=== PATIENT | female | born 2000 | race Caucasian/White ===

== ENCOUNTER 2020-02-13 22:00 | Emergency (ER) | payer OTHER, SELFPAY ==
--- NOTE | 2020-02-13 21:52 | ECG_ITS ---
APPROVED REPORT Exam: Resting ECG HR:122 bpm ECG Measurements Heart Rate 122 AXES UT 102 P 28 QRSd 84 QRS 59 QT 330 T -8 QTc 470 <Conclusion> Sinus tachycardia ,UT 120ms RSR' or QR pattern in V1 suggests right ventricular conduction delay Abnormal QRS-T angle, consider primary T wave abnormality Abnormal ECG Electronically signed by : Zbigniew Finn, 02/15/2020 17:57:29
[2020-02-13 22:01] VITALS: BP 114/66; PULSE 115; RESP 16; TEMP 37.5; O2SAT 98; BMI 25.4
--- NOTE | 2020-02-13 22:10 | XR_ITS ---
PROCEDURE: XR CHEST 2V CLINICAL HISTORY: cough/ chest pain COMPARISON: No exams were available for comparison FINDINGS: The cardiomediastinal silhouette and pulmonary vascularity are within normal limits. The lungs are clear without infiltrates, suspicious nodules, or pleural effusions. No acute bony abnormalities. IMPRESSION: No acute findings. Dictated by: Neil Moreno MD 02/14/2020 08:17 Electronically signed by Neil Moreno MD in [place] 02/14/2020 08:17
[2020-02-13 22:19] LABS: Basophils # 0.1 K/mm3 (0-0.2); Basophils % 0.3 % (0.1-2.0); Eosinophils # 0.1 K/mm3 (0.0-0.4); Eosinophils % 0.8 % (0.1-12.0); Hematocrit 40.5 % (37.0-47.0); Hemoglobin 13.3 g/dL (12.2-16.2); Lymphocytes # 2.1 K/mm3 (0.7-4.5); Lymphocytes % 12.4 % (10-50); Mean Corpuscular HGB Conc 32.9 g/dL (31.8-35.4); Mean Corpuscular Hemoglobin 29.7 pg (27.0-31.2); Mean Corpuscular Volume 90.1 fl (81-99); Mean Platelet Volume 8.6 fl (7.4-10.4); Monocytes # 1.1 K/mm3 (0.1-1.0); Monocytes % 6.8 % (1.7-9.3); Neutrophils # 13.3 K/mm3 (1.8-7.8); Neutrophils % 79.6 % (37.0-80.0); Platelet Count 265 K/mm3 (142-424); Red Cell Distribution Width 13.5 % (11.5-17.5); White Blood Count 16.7 K/mm3 (4.8-10.8)
[2020-02-13 22:19] LABS: Microscopic, Urine URINE MICROSCOPIC (MICROSCOPIC)
[2020-02-13 22:23] LABS: Chloride 105 mmol/L (98-107); Sodium 137 mmol/L (136-145)
[2020-02-13 22:25] LABS: MANUAL DIFFERENTIAL MANUAL DIFFERENTIAL (MANUAL DIFF)
[2020-02-13 22:26] LABS: Alanine Aminotransferase 20 U/L (12-78); Albumin Level 4.2 g/dl (3.5-5.0); Albumin/Globulin Ratio 1.3 (1.1-1.8); Alkaline Phosphatase 89 U/L (38-126); Aspartate Amino Transferase 24 U/L (14-36); Bilirubin,Total 0.3 mg/dl (0.2-1.3); Blood Urea Nitrogen 15 mg/dl (7-17); Carbon Dioxide 24 mmol/L (22.0-30.0); Creatinine Clearance Estimated 139 mL/min (50-200); Estimated Glomerular Filt Rate 106 ml/min (>60); GFR (African American) 128 ML/MIN (>60); Globulin 3.3 g/dL (1.3-3.2); Total Protein,Serum 7.5 g/dl (6.3-8.2)
[2020-02-13 22:27] LABS: Calcium 9.5 mg/dl (8.4-10.2); Glucose 99 mg/dl (74-100)
[2020-02-13 22:30] VITALS: BP 119/64; PULSE 104; RESP 16; O2SAT 99
[2020-02-13 22:30] LABS: Urine Pregnancy, HCG Qual. Negative (Negative)
[2020-02-13 22:37] LABS: Appearance,Urine CLEAR (Clear); Bilirubin,Urine Negative (Negative); Blood, Urine 2+ (Negative); Color,Urine YELLOW (Yellow); Glucose,Urine (UA) Negative (Negative); Ketones,Urine Negative (Negative); Leukocyte Esterase,Urine Negative (Negative); Nitrate,Urine Negative (Negative); Protein,Urine Negative (Negative); Specific Gravity, Urine 1.015 (1.005-1.030); Urobilinogen,Urine 0.2 EU/dl (0.2)
[2020-02-13 22:40] LABS: Squamous Epithelial Cell,Urine Occasional #/hpf (0-5)
[2020-02-13 22:41] LABS: Troponin I < 0.01 ng/ml (0.00-0.034)
[2020-02-13 22:41] LABS: Bacteria,Urine Trace /lpf
[2020-02-13 23:01] VITALS: BP 121/78; PULSE 108; RESP 18; O2SAT 98
[2020-02-13 23:02] LABS: Lymphocytes % 19 % (10-50); Neutrophils % 81 % (42-76); Platelet Estimate Normal; Stomatocytes 1+; Total Cells Counted 100
--- NOTE | 2020-02-14 | HMH.EDCP ---
ED Disposition Clinical Impression: Atypical chest pain, Pleurisy Acute bronchitis Qualifiers: Bronchitis organism: unspecified organism Qualified Code(s): J20.9 - Acute bronchitis, unspecified Disposition: Home, Self-Care Condition on Discharge: Good Instructions: DI for Pleurisy Additional Instructions: fluids and use meds and see pcp for follo wup Prescriptions: levoFLOXacin [Levaquin 500mg tab] 500 mg PO DAILY #7 tab Transmission Status: Pending to [facility] predniSONE [Prednisone 20mg Tab] 20 mg PO BID #10 tab Transmission Status: Pending to [facility] Referrals: Provider,Referral, [Primary Care Provider] - - Critical Care Critical Care Time: No Attestation: On 02/13/20, the high probability of a clinically significant, sudden or life threatening deterioration of the following system(s) required my full and direct attention, intervention and personal management. The time I documented below is in addition to time spent performing reported procedures but includes the following listed in this critical care notation. Medical Decision Making - Medical Records Medical records reviewed: Yes: I reviewed the patient's medical records. - Tao Inquiry Pt receiving controlled substance: No Vital Signs: 02/13/20 22:01 02/13/20 22:30 02/13/20 23:01 Temperature 99.5 F Temperature Source Oral Pulse Rate [Left Radial] 115 H 104 H 108 H Respiratory Rate 16 16 18 Blood Pressure [Right Arm] 114/66 119/64 121/78 Blood Pressure Mean [Right Arm] 82 82 92 Blood Pressure Source [Right Arm] Automatic Cuff Automatic Cuff Automatic Cuff Blood Pressure Position [Right Arm] Supine Supine Supine 02 Sat by Pulse Oximetry 98 99 98 Oxygen Delivery Method Room Air Room Air Room Air - Lab Data Lab results reviewed: Yes: I reviewed the patient's lab results. Lab Results 02/13/20 22:00: Troponin I < 0.01 02/13/20 22:00: WBC 16.7 H, RBC 4.50, Hgb 13.3, Hct 40.5, MCV 90.1, MCH 29.7, MCHC 32.9, RDW 13.5, Plt Count 265, MPV 8.6, Neut % (Auto) 79.6, Lymph % (Auto) 12.4, [place] % (Auto) 6.8, Eos % (Auto) 0.8, Baso % (Auto) 0.3, Neut # (Auto) 13.3 H, Lymph # (Auto) 2.1, [place] # (Auto) 1.1 H, Eos # (Auto) 0.1, Baso # (Auto) 0.1, Total Counted 100, Neutrophils % (Manual) 81 H, Lymphocytes % (Manual) 19, Platelet Estimate Normal, Stomatocytes 1+ 02/13/20 22:00: Sodium 137, Potassium 4.0, Chloride 105, Carbon Dioxide 24, Anion Gap 12.0, BUN 15, Creatinine 0.70, Estimated Creat Clear 139, Estimated GFR 106, Est GFR ( Amer) 128, Glucose 99, Calcium 9.5, Total Bilirubin 0.3, AST 24, ALT 20, Alkaline Phosphatase 89, Total Protein 7.5, Albumin 4.2, Globulin 3.3 H, Albumin/Globulin Ratio 1.3 02/13/20 22:05: Influenza Type A Ag Negative, Influenza Type B Ag Negative 02/13/20 22:14: Urine Color Yellow, Urine Appearance Clear, Urine pH 6.0, Ur Specific [place] 1.015, Urine Protein Negative, Urine Glucose (UA) Negative, Urine Ketones Negative, Urine Blood 2+, Urine Nitrate Negative, Urine Bilirubin Negative, Urine Urobilinogen 0.2, Ur Leukocyte Esterase Negative, Urine RBC 3-5, Urine WBC 3-5, Ur Squamous Epith Cells Occasional, Urine Bacteria Trace 02/13/20 22:14: Urine HCG, Qual Negative Result diagrams: 02/13/20 22:00 02/13/20 22:00 Orders (Tests/Meds): ED MEDICATIONS Generic Name Dose Route Start Last Admin Trade Name Freq PRN Reason Stop Dose Admin Sodium Chloride 1,000 mls @ 999 mls/hr 02/13/20 22:30 02/13/20 22:43 Sod Chlor 0.9% 1000ml Bag IV 02/13/20 23:30 999 mls/hr .Q1H1M MITCHEL Administration Discontinued Medications Generic Name Dose Route Start Last Admin Trade Name Freq PRN Reason Stop Dose Admin Methylprednisolone Sodium Succinate 125 mg 02/13/20 22:28 02/13/20 22:43 Solu-Medrol 125mg/2ml Vial IV 02/13/20 22:29 125 mg ONCE ONE Administration ORDERS Category Date Time Status XR chest 2V Stat Exams 02/13/20 22:10 Taken Troponin I Q3H Lab 02/14/20 01
[2020-02-14 00:17] VITALS: PULSE 107; PULSE 98
[2020-02-14 00:43] VITALS: BP 121/64; PULSE 108; RESP 16; TEMP 36.9; O2SAT 98
== END 2020-02-14 00:45 | disposition home or self-care (01) ==
PROVIDERS: Emergency Provider Emergency Medicine
DX: J20.9 Acute bronchitis, unspecified (principal); R09.1 Pleurisy
CPT/HCPCS: 71046; 80053; 81001; 81025; 84484; 85007; 85025; 87275; 87276; 93005; 96365; 96366; 96375; 99284

== ENCOUNTER 2021-01-14 20:18 | Emergency (ER) | payer OTHER, SELFPAY ==
[2021-01-14 20:32] VITALS: BP 118/66; PULSE 75; RESP 18; TEMP 36.8; O2SAT 100; BMI 25.0
--- NOTE | 2021-01-14 20:41 | CT_ITS ---
PROCEDURE: CT ABDOMEN PELVIS W CON CLINICAL INDICATION: abd pain Left lower quadrant pain COMPARISON: CT ABDPELW/O CT ABD PELVIS W/O CONTRAST from 11/30/2014 TECHNIQUE: IV Contrast: 75ML Isovue 370 Oral Contrast None Axial images obtained with sagittal and coronal reformats. All CT scans at the facility use one or more dose reduction, viz: automated exposure control, ma/kV adjustment per patient size (including targeted exams where dose is matched to indication, i.e. head), or iterative reconstruction technique. FINDINGS: Small area of decreased attenuation is present in the left hepatic lobe at the falciform ligament region suggesting focal fatty infiltration. The liver is otherwise unremarkable. The spleen, adrenal glands, pancreas, and kidneys have an unremarkable appearance. There is low level increased density in the gallbladder suggesting sludge and/or small stones. Gallbladder ultrasound may confirm. No evidence of appendicitis. No intestinal obstruction or free air. Small amount fluid is present in the pelvis. There is mild prominence of the left adnexa. No obvious pelvic mass. No acute bony findings. IMPRESSION: Small amount of free fluid in the pelvis with mild prominence of the left adnexa nonspecific. Pelvic ultrasound may provide further evaluation. Otherwise unremarkable. Dictated by: Neil Moreno MD 01/15/2021 06:38 Neil Moreno MD in [facility] 01/15/2021 06:38
[2021-01-14 20:42] LABS: Microscopic, Urine URINE MICROSCOPIC (MICROSCOPIC)
[2021-01-14 20:48] LABS: Appearance,Urine CLEAR (Clear); Bilirubin,Urine Negative (Negative); Blood, Urine 2+ (Negative); Color,Urine YELLOW (Yellow); Glucose,Urine (UA) Negative (Negative); Ketones,Urine Negative (Negative); Leukocyte Esterase,Urine 1+ (Negative); Nitrate,Urine Negative (Negative); PH,Urine 6.5 (5.0-8.5); Protein,Urine Negative (Negative); Urobilinogen,Urine 0.2 EU/dl (0.2)
[2021-01-14 20:52] VITALS: PULSE 74; O2SAT 99
[2021-01-14 20:53] LABS: Basophils # 0.1 K/mm3 (0-0.2); Basophils % 0.6 % (0.1-2.0); Eosinophils # 0.1 K/mm3 (0.0-0.4); Eosinophils % 0.8 % (0.1-12.0); Hematocrit 44.4 % (37.0-47.0); Hemoglobin 14.6 g/dL (12.2-16.2); Lymphocytes # 3.2 K/mm3 (0.7-4.5); Lymphocytes % 33.3 % (10-50); Mean Corpuscular HGB Conc 32.8 g/dL (31.8-35.4); Mean Corpuscular Volume 88.2 fl (81-99); Mean Platelet Volume 7.9 fl (7.4-10.4); Monocytes # 0.6 K/mm3 (0.1-1.0); Monocytes % 6.4 % (1.7-9.3); Neutrophils # 5.7 K/mm3 (1.8-7.8); Platelet Count 253 K/mm3 (142-424); Red Blood Count 5.03 M/mm3 (4.20-5.40); Red Cell Distribution Width 13.6 % (11.5-17.5); White Blood Count 9.6 K/mm3 (4.8-10.8)
[2021-01-14 20:55] LABS: Urine Pregnancy, HCG Qual. Negative (Negative)
[2021-01-14 20:58] LABS: Amylase 51 U/L (30-110); Anion Gap 12.9 mEq/L (5-15); Blood Urea Nitrogen 9 mg/dl (7-17); Calcium 9.7 mg/dl (8.4-10.2); Carbon Dioxide 26 mmol/L (22.0-30.0); Chloride 104 mmol/L (98-107); Creatinine Clearance Estimated 154 mL/min (50-200); Estimated Glomerular Filt Rate 125 ml/min (>60); GFR (African American) 151 ML/MIN (>60); Glucose 85 mg/dl (74-100); Lipase 46 U/L (23-300); Potassium 3.9 mmoL/L (3.5-5.1); Sodium 139 mmol/L (136-145)
[2021-01-14 21:00] VITALS: BP 112/67; PULSE 70; O2SAT 98
[2021-01-14 21:03] LABS: C-Reactive Protein 0.7 mg/L (0-4)
--- NOTE | 2021-01-14 21:03 | HMH.EDNVD ---
ED Disposition Clinical Impression: Abdominal pain Qualifiers: Abdominal location: left lower quadrant Qualified Code(s): R10.32 - Left lower quadrant pain Disposition: Home, Self-Care Condition on Discharge: Good Instructions: DI for Acute Abdominal Pain Additional Instructions: fluids and see pcp for follow up and urine c/s Prescriptions: levoFLOXacin [Levaquin 500mg tab] 500 mg PO DAILY #7 tab Transmission Status: Pending to [facility] Referrals: PCP,No [Primary Care Provider] - - Critical Care Critical Care Time: No Attestation: On 01/14/21, the high probability of a clinically significant, sudden or life threatening deterioration of the following system(s) required my full and direct attention, intervention and personal management. The time I documented below is in addition to time spent performing reported procedures but includes the following listed in this critical care notation. Medical Decision Making - Medical Records Medical records reviewed: Yes: I reviewed the patient's medical records. - Tao Inquiry Pt receiving controlled substance: No Vital Signs: 01/14/21 20:32 01/14/21 20:52 01/14/21 21:00 Temperature 98.2 F Temperature Source Oral Pulse Rate 74 70 Pulse Rate [Right Brachial] 75 Respiratory Rate 18 Blood Pressure 112/67 Blood Pressure [Right Arm] 118/66 Blood Pressure Mean 82 Blood Pressure Mean [Right Arm] 83 Blood Pressure Source [Right Arm] Automatic Cuff Blood Pressure Position [Right Arm] Sitting 02 Sat by Pulse Oximetry 100 99 98 Oxygen Delivery Method Room Air 01/14/21 21:15 Temperature Temperature Source Pulse Rate 70 Pulse Rate [Right Brachial] Respiratory Rate Blood Pressure Blood Pressure [Right Arm] Blood Pressure Mean Blood Pressure Mean [Right Arm] Blood Pressure Source [Right Arm] Blood Pressure Position [Right Arm] 02 Sat by Pulse Oximetry 100 Oxygen Delivery Method - Lab Data Lab results reviewed: Yes: I reviewed the patient's lab results. Lab Results 01/14/21 20:25: Urine Color Yellow, Urine Appearance Clear, Urine pH 6.5, Ur Specific [place] 1.020, Urine Protein Negative, Urine Glucose (UA) Negative, Urine Ketones Negative, Urine Blood 2+, Urine Nitrate Negative, Urine Bilirubin Negative, Urine Urobilinogen 0.2, Ur Leukocyte Esterase 1+ A, Urine RBC 5-10, Urine WBC 3-5, Ur Squamous Epith Cells 3-5, Urine Bacteria 1+, Urine Mucus 1+ 01/14/21 20:30: WBC 9.6, RBC 5.03, Hgb 14.6, Hct 44.4, MCV 88.2, MCH 29.0, MCHC 32.8, RDW 13.6, Plt Count 253, MPV 7.9, Neut % (Auto) 59.0, Lymph % (Auto) 33.3, [place] % (Auto) 6.4, Eos % (Auto) 0.8, Baso % (Auto) 0.6, Neut # (Auto) 5.7, Lymph # (Auto) 3.2, [place] # (Auto) 0.6, Eos # (Auto) 0.1, Baso # (Auto) 0.1 01/14/21 20:30: Urine HCG, Qual Negative 01/14/21 20:30: Sodium 139, Potassium 3.9, Chloride 104, Carbon Dioxide 26, Anion Gap 12.9, BUN 9, Creatinine 0.60, Estimated Creat Clear 154, Estimated GFR 125, Est GFR ( Amer) 151, Glucose 85, Calcium 9.7, C-Reactive Protein 0.7, Amylase 51, Lipase 46 01/14/21 20:30: ESR 6 Result diagrams: 01/14/21 20:30 01/14/21 20:30 Orders (Tests/Meds): ED MEDICATIONS Generic Name Dose Route Start Last Admin Trade Name Freq PRN Reason Stop Dose Admin Sodium Chloride 1,000 mls @ 999 mls/hr 01/14/21 20:45 01/14/21 21:00 Sod Chlor 0.9% 1000ml Bag IV 01/14/21 21:45 999 mls/hr .Q1H1M MITCHEL Administration Ceftriaxone Sodium 1 gm/ 50 mls @ 100 mls/hr 01/14/21 22:15 01/14/21 22:08 Sodium Chloride IV 01/28/21 22:14 100 mls/hr Q24H MITCHEL Administration Protocol Discontinued Medications Generic Name Dose Route Start Last Admin Trade Name Freq PRN Reason Stop Dose Admin Iopamidol 75 ml 01/14/21 21:34 01/14/21 21:35 Iopamidol-370 (76%);100ml Bottle IV 01/14/21 21:35 75 ml ONCE ONE Administration Ketorolac Tromethamine 30 mg 01/14/21 20:44 01/14/21 20:59 Ketorolac 30mg/Ml Vial IV
[2021-01-14 21:15] VITALS: PULSE 70; O2SAT 100
[2021-01-14 21:33] LABS: Bacteria,Urine 1+ /lpf; Mucus,Urine 1+ /lpf
[2021-01-14 21:49] LABS: Erythrocyte Sedimentation Rate 6 mm/hr (0-20)
[2021-01-14 22:12] VITALS: BP 100/67; PULSE 76; RESP 16; O2SAT 100
[2021-01-14 22:54] VITALS: BP 105/67; PULSE 74; RESP 16; TEMP 36.6; O2SAT 99
== END 2021-01-14 22:57 | disposition home or self-care (01) ==
PROVIDERS: Emergency Provider Emergency Medicine
DX: R10.32 Left lower quadrant pain (principal); K59.00 Constipation, unspecified
CPT/HCPCS: 74177; 80048; 81001; 81025; 82150; 83690; 85025; 85651; 86140; 87086; 87088; 87186; 96365; 96375; 99283; J2405; Q9967

== ENCOUNTER → 2021-12-11 10:59 | Outpatient (CLI) | payer OTHER, SELFPAY ==
[2021-12-11 12:11] LABS: Basophils # 0.1 K/mm3 (0-0.2); Basophils % 0.5 % (0.1-2.0); Eosinophils # 0.1 K/mm3 (0.0-0.4); Eosinophils % 0.6 % (0.1-12.0); Hematocrit 37.6 % (37.0-47.0); Hemoglobin 12.7 g/dL (12.2-16.2); Lymphocytes # 2.9 K/mm3 (0.7-4.5); Lymphocytes % 22.2 % (10-50); Mean Corpuscular HGB Conc 33.9 g/dL (31.8-35.4); Mean Corpuscular Hemoglobin 30.5 pg (27.0-31.2); Mean Platelet Volume 8.5 fl (7.4-10.4); Monocytes # 0.7 K/mm3 (0.1-1.0); Monocytes % 5.4 % (1.7-9.3); Neutrophils # 9.4 K/mm3 (1.8-7.8); Neutrophils % 71.3 % (37.0-80.0); Platelet Count 258 K/mm3 (142-424); Red Blood Count 4.18 M/mm3 (4.20-5.40); Red Cell Distribution Width 13.7 % (11.5-17.5); White Blood Count 13.1 K/mm3 (4.8-10.8)
[2021-12-12 10:12] LABS: HSV 1 IgG, Type Spec <0.91 index (0.00-0.90); HSV 2 IgG, Type Spec <0.91 index (0.00-0.90); Rubella Antibodies, IgG <0.90 index (Immune >0.99)
[2021-12-12 11:12] LABS: HIV Screen 4th Generation wRfx Non Reactive (Non Reactive)
[2021-12-12 12:22] LABS: Rapid Plasma Reagin Ab Titer Non Reactive (NonRea<1:1)
[2021-12-12 13:31] LABS: Hepatitis B Surface Antigen Negative (Negative); Hepatitis C Antibody 0.1 s/co ratio (0.0-0.9)
== END ==
PROVIDERS: PCP Nurse Practitioner; Visit Provider Nurse Practitioner Obstetrics & Gynecology
DX: Z34.90 Encounter for supervision of normal pregnancy, unspecified, unspecified trimester (principal)
CPT/HCPCS: 36415; 85025; 86592; 86695; 86703; 86762; 86790; 86850; 87340; 87380; G0432

== ENCOUNTER → 2021-12-18 09:55 | Outpatient (CLI) | payer OTHER, SELFPAY ==
--- NOTE | 2021-12-18 09:59 | US_ITS ---
FINAL REPORT CLINICAL HISTORY: dates/ anatomy; this is patients first ultrasound with this , late to care; patient returning for additional imaging in 1 week because of position unable to evaluate: spine, kidney's, and 3vc FINDINGS: There is a single live intrauterine gestation. Presentation is breech. Placenta is posterior?fundal. movement is noted. Heart rate is detected at 144 bpm. The uterus are otherwise normal. The ovaries are not visualized. Three-vessel cord with satisfactory umbilical cord insertion. Four-chamber heart is noted. brain and ventricles are unremarkable. Chest and diaphragm are unremarkable. ABDOMEN: Both kidneys are unremarkable. Stomach is unremarkable. SPINE: No anomalies identified. Both arms and legs noted. AMNIOTIC FLUID: Appropriate amount. MEASUREMENTS: ULTRASOUND AGE: 20 weeks, 3 days. ESTIMATED WEIGHT: 353 g BPD: 4.77 cm consistent with 20 week 3 days. OFD: 6 cm consistent with 20 weeks 3 days. HC: 17.03 cm consistent with 19 weeks 5 days. AC: 15.37 cm consistent with 20 week 4 days. FL: 3.34 cm consistent with 20 week 4 days. CEREBELLUM: 2.04 cm consistent with 20 week 5 days. NUCH FOLD: 2.11 mm HC/AC: 1.11 CI: 80% FL/BPD: 70% FL/AC: 22% IMPRESSION: Single living IUP with an ultrasound age of 20 week 3 days. Reviewed, Interpreted and Dictated by Tae Stacy III, MD Transcribed by Alessandra Lopes Authenticated by Tae Stacy III, MD on 12/18/2021 01:20:39 PM [facility]
== END ==
PROVIDERS: PCP Nurse Practitioner; Visit Provider Nurse Practitioner Obstetrics & Gynecology
DX: O26.842 Uterine size-date discrepancy, second trimester (principal)
CPT/HCPCS: 76805

== ENCOUNTER → 2021-12-25 09:40 | Outpatient (CLI) | payer OTHER, SELFPAY ==
--- NOTE | 2021-12-25 09:46 | US_ITS ---
FINAL REPORT CLINICAL HISTORY: FU TO EVAL KIDNEYS 3VC AND SPINE DUE TO LAST US COMPARISON: December 18, 2021 FINDINGS: TRANSABDOMINAL ULTRASOUND Single intrauterine is present. Cardiac activity is confirmed at 143 beats per minute. On the prior exam the three-vessel cord and kidneys were not well evaluated. They are seen on today's exam and appear within normal limits. IMPRESSION: Single living IUP. Three vessel cord and kidneys are unremarkable. Reviewed, Interpreted and Dictated by Fox Borja MD Transcribed by Bob Torres Authenticated by Fox Borja MD on 12/25/2021 01:34:[address] [facility]
== END ==
PROVIDERS: PCP Nurse Practitioner; Visit Provider Nurse Practitioner Obstetrics & Gynecology
DX: Z34.90 Encounter for supervision of normal pregnancy, unspecified, unspecified trimester (principal)

== ENCOUNTER → 2022-02-17 16:03 | Outpatient (CLI) | payer OTHER, SELFPAY ==
[2022-02-17 17:25] LABS: Glucose,Fasting 86 mg/dl (74-100)
[2022-02-17 17:54] LABS: Glucose 1 Hour 103 mg/dL (74-100)
== END ==
PROVIDERS: Visit Provider Nurse Practitioner Obstetrics & Gynecology
DX: Z34.90 Encounter for supervision of normal pregnancy, unspecified, unspecified trimester (principal); Z3A.24 24 weeks gestation of pregnancy
CPT/HCPCS: 82951

== ENCOUNTER 2022-03-05 19:50 | Outpatient (CLI) | payer OTHER, SELFPAY ==
[2022-03-05 20:00] VITALS: BMI 25.9
[2022-03-05 20:07] LABS: Microscopic, Urine URINE MICROSCOPIC (MICROSCOPIC)
[2022-03-05 20:16] LABS: Appearance,Urine CLOUDY (Clear); Bilirubin,Urine Negative (Negative); Blood, Urine 3+ (Negative); Color,Urine DK YELLOW (Yellow); Glucose,Urine (UA) Negative (Negative); Ketones,Urine Negative (Negative); Leukocyte Esterase,Urine TRACE (Negative); Nitrate,Urine Negative (Negative); PH,Urine 6.5 (5.0-8.5); Protein,Urine TRACE (Negative); Specific Gravity, Urine 1.015 (1.005-1.030); Urobilinogen,Urine 0.2 EU/dl (0.2)
[2022-03-05 20:27] LABS: Amphetamine/Metha Screen,Urine Negative ng/ml (<1000); Barbiturates Screen,Urine Negative ng/ml (<200)
[2022-03-05 20:28] LABS: Benzodiazepines Screen,Urine Negative ng/ml (<200)
[2022-03-05 20:29] LABS: Cannabinoid Screen,Urine Positive ng/ml (<50); Cocaine Screen,Urine Negative ng/ml (<300)
[2022-03-05 20:30] LABS: Methadone Screen,Urine Negative ng/ml (<300)
[2022-03-05 20:31] LABS: Bacteria,Urine Trace /lpf; Opiate Screen,Urine Negative ng/ml (<300); Phencyclidine Screen,Urine Negative ng/ml (<25); RBC,Urine TNTC #/hpf (0-3); Squamous Epithelial Cell,Urine Occasional #/hpf (0-5)
[2022-03-05 21:00] VITALS: BP 125/73; PULSE 79; RESP 18; TEMP 37.1; O2SAT 97; BMI 25.9
[2022-03-28 09:15] LABS: Buprenorphine, Urine Positive (Cutoff=10)
== END 2022-03-05 23:10 | disposition home or self-care (01) ==
LOC: OBOUT 19:52 → OB 19:53
PROVIDERS: PCP Nurse Practitioner; Visit Provider Obstetrics & Gynecology
DX: O26.893 Other specified pregnancy related conditions, third trimester (principal); Z3A.31 31 weeks gestation of pregnancy
CPT/HCPCS: 59025; 80305; 80307; 81001; 96365; 96366; G0463

== ENCOUNTER 2022-03-06 09:55 | Observation (INO) | payer OTHER, SELFPAY ==
[2022-03-06 08:31] VITALS: BMI 26.1
[2022-03-06 08:58] LABS: Barbiturates Screen,Urine Negative ng/ml (<200)
[2022-03-06 08:59] LABS: Amphetamine/Metha Screen,Urine Negative ng/ml (<1000); Benzodiazepines Screen,Urine Negative ng/ml (<200)
[2022-03-06 09:00] VITALS: BP 112/44; PULSE 91; RESP 20; TEMP 37.3; O2SAT 95; BMI 26.1
[2022-03-06 09:00] LABS: Cannabinoid Screen,Urine Positive ng/ml (<50)
[2022-03-06 09:01] LABS: Cocaine Screen,Urine Negative ng/ml (<300); Methadone Screen,Urine Negative ng/ml (<300)
[2022-03-06 09:02] LABS: Opiate Screen,Urine Negative ng/ml (<300); Phencyclidine Screen,Urine Negative ng/ml (<25)
[2022-03-06 09:12] LABS: Microscopic, Urine URINE MICROSCOPIC (MICROSCOPIC)
[2022-03-06 09:16] LABS: Appearance,Urine SL CLOUDY (Clear); Bilirubin,Urine Negative (Negative); Blood, Urine 3+ (Negative); Color,Urine YELLOW (Yellow); Glucose,Urine (UA) Negative (Negative); Ketones,Urine 1+ (Negative); Leukocyte Esterase,Urine 1+ (Negative); Nitrate,Urine Negative (Negative); PH,Urine 6.5 (5.0-8.5); Protein,Urine Negative (Negative); Specific Gravity, Urine <= 1.005 (1.005-1.030); Urobilinogen,Urine 0.2 EU/dl (0.2)
[2022-03-06 09:53] LABS: Bacteria,Urine Trace /lpf
--- NOTE | 2022-03-06 09:54 | US_ITS ---
PROCEDURE INFORMATION: Exam: US Retroperitoneal Complete, Kidneys Aorta IVC. Exam date and time: 03/06/2022 1:06 PM Age: 21 years old Clinical indication: Other: Left flank pain; ; Additional info: Left flank pain in 31 week patient TECHNIQUE: Imaging protocol: Real-time ultrasound of the retroperitoneum with image documentation. Complete exam. COMPARISON: CT ABDOMEN PELVIS W CON 01/14/2021 9:23 PM FINDINGS: Right kidney: 13.3 cm in length by 6.1 x 7.5 cm in AP and transverse dimensions. There is mild-moderate bilateral hydronephrosis greatest in the right kidney. There is greater dilatation of the right proximal ureter in comparison to the left. No definitive obstructing calculus is present. Left kidney: 12.9 cm in length by 7.1 x 6.3 cm in AP and transverse dimensions. Mild bilateral hydronephrosis was demonstrated. Aorta: Normal. No aneurysm. Common iliac arteries: Normal. Inferior vena cava: See Right kidney finding. Soft tissues: No perinephric fluid collections are demonstrated. IMPRESSION: Mild-moderate bilateral hydronephrosis greatest in the right kidney. No definitive obstructing calculus identified.
[2022-03-06 10:15] LABS: Coronavirus 19, PCR Not Detected (NotDetected); Influenza A, PCR Not Detected (NotDetected); Influenza B, PCR Not Detected (NotDetected)
[2022-03-06 10:22] LABS: Chloride 107 mmol/L (98-107); Sodium 136 mmol/L (136-145)
[2022-03-06 10:23] LABS: Potassium 3.6 mmoL/L (3.5-5.1)
[2022-03-06 10:25] LABS: Alanine Aminotransferase 18 U/L (12-78); Albumin Level 3.3 g/dl (3.5-5.0); Albumin/Globulin Ratio 1.2 (1.1-1.8); Alkaline Phosphatase 123 U/L (38-126); Anion Gap 9.6 mEq/L (5-15); Aspartate Amino Transferase 24 U/L (14-36); Bilirubin,Total 0.5 mg/dl (0.2-1.3); Blood Urea Nitrogen 5 mg/dl (7-17); Carbon Dioxide 23 mmol/L (22.0-30.0); Creatinine Clearance Estimated 136 mL/min (50-200); Estimated Glomerular Filt Rate 104 ml/min (>60); GFR (African American) 125 ML/MIN (>60); Globulin 2.7 g/dL (1.3-3.2)
[2022-03-06 10:26] LABS: Calcium 9.2 mg/dl (8.4-10.2); Glucose 117 mg/dl (74-100)
[2022-03-06 10:29] LABS: Basophils # 0.1 K/mm3 (0-0.2); Basophils % 0.5 % (0.1-2.0); Hematocrit 35.4 % (37.0-47.0); Hemoglobin 12.3 g/dL (12.2-16.2); Lymphocytes # 1.3 K/mm3 (0.7-4.5); Lymphocytes % 7.4 % (10-50); Mean Corpuscular HGB Conc 34.8 g/dL (31.8-35.4); Mean Corpuscular Hemoglobin 31.3 pg (27.0-31.2); Mean Corpuscular Volume 90.2 fl (81-99); Mean Platelet Volume 8.9 fl (7.4-10.4); Monocytes # 0.7 K/mm3 (0.1-1.0); Neutrophils # 15.3 K/mm3 (1.8-7.8); Neutrophils % 88.1 % (37.0-80.0); Platelet Count 214 K/mm3 (142-424); Red Blood Count 3.92 M/mm3 (4.20-5.40); Red Cell Distribution Width 13.5 % (11.5-17.5); White Blood Count 17.4 K/mm3 (4.8-10.8)
[2022-03-06 10:31] LABS: MANUAL DIFFERENTIAL MANUAL DIFFERENTIAL (MANUAL DIFF)
[2022-03-06 10:48] LABS: Lymphocytes % 8 % (10-50); Monocytes % 1 % (2-9); Neutrophils % 90 % (42-76); Total Cells Counted 100
[2022-03-06 10:49] LABS: Platelet Estimate Normal; RBC Morphology Normal
--- NOTE | 2022-03-06 13:23 | HMH.HP ---
*Admission Date: 03/06/22 *Chief complaint: flank pain *History of present illness: 21 yo G1 @ 31 4/7 weeks She presented to OB triage on the evening of 03/05/22 with complaint of abdominal cramping and vaginal spotting She had recent intercourse and concentrated urine; TOCO showed mild irritability but no contractions UA showed blood but no signs of cystitis She was treated with IV hydration and discharged home She represented on 03/06/22 with moderate-severe left flank pain, radiating around to abdomen Urine again showed blood and WBC elevated at 17.4 Because of location of pain, she was sent for renal ultrasound Bilateral hydronephrosis noted, with possible stone on left side, but no obstruction She was admitted for IV hydration and pain management status reassuring No signs of labor; cervix closed No vaginal bleeding today and no blood on exam glove complicated by chronic suboxone therapy and recreational THC use [facility] History I have reviewed the patient's past medical history: Yes *Have you ever received a pneumonia vaccine?: No *Have you received a flu vaccine this season?: No Other Surgeries: Yes: No Previous Surgery. No: Amputation: No Fractures: No - *Social History Smoking Status: Current every day smoker Tobacco Type: cigarettes Alcohol Intake: never Substance Use Type: former substance user, methamphetamine, marijuana *Occupational Status:: unemployed *Travel in the last 8 weeks: None Family Hx:: No significant family history Para: 0 Review of Systems - Review of Systems Review of systems:: pertinent systems reviewed and negative unless documented below - Constitutional Denies fever(s) - *Gastrointestinal Reports abdominal pain - *Genitourinary Reports abnormal vaginal bleeding - *Musculoskeletal Reports back pain Meds Home Medications Medication Instructions Recorded Confirmed Type [id number] 400 mcg-om3 35 mg-dha 25 1 tab PO DAILY tab 12/11/21 03/06/22 History mg-epa 5 mg-fish oil chewable tablet buprenorphine 8 mg-naloxone 2 mg 2 tab SUBLINGUAL DAILY 01/13/22 03/06/22 History sublingual tablet Docusate Sodium 100 mg PO DAILY 03/06/22 03/06/22 History Ferrous Sulfate 325 mg PO DAILY 03/06/22 03/06/22 History Allergies Allergy/AdvReac Type Severity Reaction Status Date / Time No Known Allergies Allergy Verified 03/01/22 10:33 Exam Vital signs and Labs for Last 24 Hours: Temp Pulse Resp BP Pulse Ox 99.1 F 91 H 20 112/44 L 95 03/06/22 09:00 03/06/22 09:00 03/06/22 09:00 03/06/22 09:00 03/06/22 09:00 Laboratory Results - last 24 hr 03/06/22 08:36: Urine Opiates Screen Negative, Urine Methadone Screen Negative, Ur Barbituates Screen Negative, Ur Phencyclidine Scrn Negative, Ur Amphetamines Screen Negative, U Benzodiazepines Scrn Negative, Urine Cocaine Screen Negative, U Marijuana (THC) Screen Positive H 03/06/22 08:36: Urine Color Yellow, Urine Appearance Sl cloudy, Urine pH 6.5, Ur Specific [place] <= 1.005, Urine Protein Negative, Urine Glucose (UA) Negative, Urine Ketones 1+, Urine Blood 3+, Urine Nitrate Negative, Urine Bilirubin Negative, Urine Urobilinogen 0.2, Ur Leukocyte Esterase 1+ A, Urine RBC 10-20, Urine WBC 5-10, Ur Squamous Epith Cells 3-5, Urine Bacteria Trace 03/06/22 10:05: WBC 17.4 H, RBC 3.92 L, Hgb 12.3, Hct 35.4 L, MCV 90.2, MCH 31.3 H, MCHC 34.8, RDW 13.5, Plt Count 214, MPV 8.9, Neut % (Auto) 88.1 H, Lymph % (Auto) 7.4 L, [place] % (Auto) 4.0, Eos % (Auto) 0.0 L, Baso % (Auto) 0.5, Neut # (Auto) 15.3 H, Lymph # (Auto) 1.3, [place] # (Auto) 0.7, Eos # (Auto) 0.0, Baso # (Auto) 0.1, Total Counted 100, Neutrophils % (Manual) 90 H, Band Neutrophils % 1.0, Lymphocytes % (Manual) 8 L, Monocytes % (Manual) 1 L, Platelet Estimate Normal, RBC Morphology Normal 03/06/22 10:05: Sodium 136, Potassium 3.6, Chloride 107, Carbon Dioxide 23, Anion Gap 9.6, BUN 5 L, Creatinine 0.70, Estimated Creat Clear 136, Estimated GFR 104, Est GF
[2022-03-06 17:55] VITALS: BP 126/88; PULSE 87; RESP 18; TEMP 36.7; O2SAT 100
[2022-03-06 20:10] VITALS: BP 119/65; PULSE 77; RESP 18; TEMP 36.8; O2SAT 99
[2022-03-07 00:43] VITALS: BP 142/73; PULSE 107; RESP 18; TEMP 36.5; O2SAT 99
[2022-03-07 06:00] VITALS: BP 114/62; RESP 18; TEMP 36.8; O2SAT 99
[2022-03-07 07:44] LABS: Basophils % 0.2 % (0.1-2.0); Hematocrit 32.7 % (37.0-47.0); Lymphocytes # 1.3 K/mm3 (0.7-4.5); Lymphocytes % 7.8 % (10-50); Mean Corpuscular HGB Conc 33.5 g/dL (31.8-35.4); Mean Corpuscular Hemoglobin 31.1 pg (27.0-31.2); Mean Corpuscular Volume 92.8 fl (81-99); Monocytes # 1.1 K/mm3 (0.1-1.0); Monocytes % 6.9 % (1.7-9.3); Neutrophils # 13.7 K/mm3 (1.8-7.8); Neutrophils % 85.1 % (37.0-80.0); Platelet Count 184 K/mm3 (142-424); Red Blood Count 3.53 M/mm3 (4.20-5.40); Red Cell Distribution Width 13.7 % (11.5-17.5); White Blood Count 16.1 K/mm3 (4.8-10.8)
[2022-03-07 08:08] LABS: MANUAL DIFFERENTIAL MANUAL DIFFERENTIAL (MANUAL DIFF)
[2022-03-07 10:18] LABS: Lymphocytes % 10 % (10-50); Monocytes % 5 % (2-9); Neutrophils % 85 % (42-76); Platelet Estimate Normal; Total Cells Counted 100
[2022-03-07 10:19] LABS: RBC Morphology Normal
--- NOTE | 2022-03-07 10:51 | HMH.PHAINT ---
MEDICATION RECONCILIATION COMPLETE USING MOST RECENT MD OFFICE VISIT AND EXTERNAL PHARMACY FILL HISTORY.
--- NOTE | 2022-03-07 10:51 | HMH.PHAVTE ---
[facility] Pharmacy VTE Monitoring - Patient Demographics Admission date: 03/06/22 Report Date: 03/07/22 Time: 10:51 Allergies/Adverse Reactions: Patient Allergies No Known Allergies Allergy (Verified 03/01/22 10:33) Height: 1.63 m Weight: 68.946 kg Patient Problems: Current Active Problems complicated by Suboxone maintenance, antepartum (Acute) Flank pain (Acute) 31 weeks gestation of (Acute) Maternal drug use complicating , antepartum (Acute) - VTE Risk Labs: VTE Related Lab Results Hgb 11.0 g/dL (12.2-16.2) L D 03/07/22 07:15 Hct 32.7 % (37.0-47.0) L 03/07/22 07:15 Plt Count 184 K/mm3 (142-424) 03/07/22 07:15 BUN 5 mg/dl (7-17) L 03/06/22 10:05 Creatinine 0.70 mg/dl (0.52-1.04) 03/06/22 10:05 Estimated Creat Clear 136 mL/min (50-200) 03/06/22 10:05 Was VTE Risk Assessment Performed: No Clinical Trial Participant: No - Prophylaxis VTE Prophylaxis Ordered?: No If no, why not: PT AMBULATORY AND LOW RISK Types of VTE Prophylaxis: Not Applicable Location of Applied Device: Not Applicable
--- NOTE | 2022-03-07 12:03 | P.PN_ITS ---
Internal Medicine - PN: Subj *Date: 03/07/22 *Time: 12:03 Interval history: She continues to have left-sided flank pain. She says the pain is severe. She definitely has CVA tenderness on that left side. Her urine showed 3+ blood as well as leuk esterase. I suspect she may have either kidney stone or more likely a urinary tract infection and possibly Noe nephritis. She has had 1 episode of low-grade temperature. She is on IV antibiotics. Exam Vital signs and Labs for Last 24 Hours: Temp Pulse Resp BP Pulse Ox 98.2 F 107 H 18 114/62 99 03/07/22 06:00 03/07/22 00:43 03/07/22 06:00 03/07/22 06:00 03/07/22 06:00 Laboratory Results - last 24 hr 03/07/22 07:15: WBC 16.1 H, RBC 3.53 L, Hgb 11.0 L D, Hct 32.7 L, MCV 92.8, MCH 31.1, MCHC 33.5, RDW 13.7, Plt Count 184, MPV 9.0, Neut % (Auto) 85.1 H, Lymph % (Auto) 7.8 L, [place] % (Auto) 6.9, Eos % (Auto) 0.0 L, Baso % (Auto) 0.2, Neut # (Auto) 13.7 H, Lymph # (Auto) 1.3, [place] # (Auto) 1.1 H, Eos # (Auto) 0.0, Baso # (Auto) 0.0, Total Counted 100, Neutrophils % (Manual) 85 H, Lymphocytes % (Manual) 10, Monocytes % (Manual) 5, Platelet Estimate Normal, RBC Morphology Normal I & O for Last 24 hours: Intake & Output 03/05/22 03/06/22 03/07/22 03/08/22 11:59 11:59 11:59 11:59 Output Total 600 / 600 Balance -600 / -600 Weight 152 lb Microbiology Reports for the Last 24 Hours: Microbiology 03/06/22 08:36 Urine,Clean Catch Urine Culture - Preliminary - Constitutional mild distress - *Routine Abdominal Exam Present: soft, normoactive bowel sounds. Absent: tenderness - Routine Back/Spine/Pelvis Exam Back/Spine: Present: CVA tenderness Assessment and Plan (1) 31 weeks gestation of Status: Acute Category: Medical Code(s): Z3A.31 - 31 weeks gestation of (2) Flank pain Status: Acute Category: Medical Code(s): R10.9 - Unspecified abdominal pain (3) complicated by Suboxone maintenance, antepartum Status: Acute Category: Medical Code(s): O99.320 - Drug use complicating , unspecified trimester; F11.20 - Opioid dependence, uncomplicated (4) Maternal drug use complicating , antepartum Status: Acute Category: Medical Code(s): O99.320 - Drug use complicating , unspecified trimester - Assessment and plan all Dx Assessment and Plan for all problems:: We will hold her Suboxone for now. We will start Dilaudid 1 mg every 2-3 hours. This may be a better choice for her for her pain. We will keep her overnight and do consult with her urologist tomorrow.
[2022-03-07 19:43] VITALS: BP 127/81; PULSE 83; RESP 18; TEMP 36.9; O2SAT 100
[2022-03-07 23:35] VITALS: BP 130/75; PULSE 82; RESP 18; TEMP 37.2; O2SAT 99
[2022-03-08 05:23] VITALS: BP 118/72; PULSE 80; RESP 18; TEMP 36.6; O2SAT 99
[2022-03-08 08:41] VITALS: BP 1385/73; PULSE 83; RESP 18; TEMP 36.7; O2SAT 100
--- NOTE | 2022-03-08 10:29 | P.PN_ITS ---
Internal Medicine - PN: Subj *Date: 03/08/22 *Time: 10:30 Interval history: She is doing a little better today. She says that her pain is improved. She still is taking some Dilaudid but not as much as she had been taking. I suspect she may have had pyelonephritis rather than a kidney stone. She does have a consult in today with Dr. Stubbs. Exam Vital signs and Labs for Last 24 Hours: Temp Pulse Resp BP Pulse Ox 98.0 F 83 18 1385/73 H 100 03/08/22 08:41 03/08/22 08:41 03/08/22 08:41 03/08/22 08:41 03/08/22 08:41 Laboratory Results - last 24 hr 03/07/22 07:15: Hgb 11.0 L D I & O for Last 24 hours: Intake & Output 03/05/22 03/06/22 03/07/22 03/08/22 11:59 11:59 11:59 11:59 Output Total 600 / 600 Balance -600 / -600 Weight 152 lb Microbiology Reports for the Last 24 Hours: Microbiology 03/06/22 08:36 Urine,Clean Catch Urine Culture - Preliminary - Constitutional no acute distress - *Routine HEENT Exam Head: Present: normocephalic Eye: Present: EOMI, PERRL ENT: Present: mucous membranes moist Assessment and Plan (1) 31 weeks gestation of Status: Acute Category: Medical Code(s): Z3A.31 - 31 weeks gestation of (2) Flank pain Status: Acute Category: Medical Code(s): R10.9 - Unspecified abdominal pain (3) complicated by Suboxone maintenance, antepartum Status: Acute Category: Medical Code(s): O99.320 - Drug use complicating , unspecified trimester; F11.20 - Opioid dependence, uncomplicated (4) Maternal drug use complicating , antepartum Status: Acute Category: Medical Code(s): O99.320 - Drug use complicating , unspecified trimester - Assessment and plan all Dx Assessment and Plan for all problems:: She has shown some improvement overnight. She is afebrile. Her pain is improved. We may consider a 3 shot IVP today. We will see what Dr. Stubbs seems to think. It is hard to say whether she does have a kidney stone or pyeloneph ritis.
--- NOTE | 2022-03-08 13:35 | XR_ITS ---
FINAL REPORT CLINICAL HISTORY: possible kidney stone, left flank pain, low grade fever x2 days. 50ml Isovue 370 injected into left hand FINDINGS: A preliminary hands hanger radiograph of the abdomen and pelvis was first obtained. An intrauterine is present. There is a nonobstructive bowel gas pattern. 5 minute, 15 minute and 30 minute post contrast images of the abdomen and pelvis were then obtained. There is delayed opacification of the right renal collecting system. There is moderate right hydronephrosis. The right ureter was never well visualized. There is mild left hydronephrosis and hydroureter down to the UVJ. There are 2 small calcifications in the left lower pelvis near the expected location of the left UVJ measuring up to 3 mm. It is uncertain if these represent phleboliths or distal ureteral stones but there is no evidence of significant obstruction. A single small calcification in the right lower pelvis is favored to represent a phlebolith. IMPRESSION: Moderate right hydronephrosis without visualization of the mid or distal right ureter. Mild left hydronephrosis and hydroureter. 2 small left pelvic calcifications may represent phleboliths or distal ureteral stones. Authenticated by Tae Stacy III, MD on 03/08/2022 03:11:57 PM [facility]
[2022-03-08 15:36] VITALS: BP 126/62; PULSE 74; RESP 18; TEMP 37; O2SAT 100
--- NOTE | 2022-03-08 16:14 | HMH.CONS ---
*Admission Date: 03/06/22 *Reason for consult:: Left flank pain *History of present illness: 21-year-old white female who is 31 weeks is admitted with left flank pain 2 days ago. She states her pain began about 4 days ago and was associated with nausea. States her pain is better today. Renal ultrasound shows bilateral hydronephrosis without an obvious stone. CT scan in December 2020 showed no evidence of stones. Urine culture unremarkable this admission. White count elevated to 16.1 yesterday. Her renal function is normal. Her urinalysis with 3+ blood and trace bacteria. [facility] History *Have you ever received a pneumonia vaccine?: No *Have you received a flu vaccine this season?: No Other Surgeries: Yes: No Previous Surgery. No: Amputation: No Fractures: No - *Social History Smoking Status: Current every day smoker Tobacco Type: cigarettes Alcohol Intake: never Substance Use Type: former substance user, methamphetamine, marijuana *Occupational Status:: unemployed *Travel in the last 8 weeks: None Family Hx:: No significant family history Para: 0 Review of Systems - Review of Systems Review of systems:: pertinent systems reviewed and negative unless documented below Meds Home Medications Medication Instructions Recorded Confirmed Type [id number] 400 mcg-om3 35 mg-dha 25 1 tab PO DAILY tab 12/11/21 03/08/22 History mg-epa 5 mg-fish oil chewable tablet buprenorphine 8 mg-naloxone 2 mg 2 tab SL DAILY 01/13/22 03/08/22 History sublingual tablet Docusate Sodium 100 mg PO DAILY 03/06/22 03/06/22 History Ferrous Sulfate 325 mg PO DAILY 03/06/22 03/06/22 History Allergies Allergy/AdvReac Type Severity Reaction Status Date / Time No Known Allergies Allergy Verified 03/01/22 10:33 Exam Vital signs and Labs for Last 24 Hours: Temp Pulse Resp BP Pulse Ox 98.6 F 74 18 126/62 100 03/08/22 15:36 03/08/22 15:36 03/08/22 15:36 03/08/22 15:36 03/08/22 15:36 I & O for Last 24 hours: Intake & Output 03/05/22 03/06/22 03/07/22 03/08/22 23:59 23:59 23:59 23:59 Output Total 600 / 600 Balance -600 / -600 Weight 68.946 kg Microbiology Reports for the Last 24 Hours: Microbiology 03/06/22 08:36 Urine,Clean Catch Urine Culture - Preliminary - Constitutional no acute distress - *Routine HEENT Exam Head: Present: normocephalic Eye: Present: EOMI, PERRL ENT: Present: mucous membranes moist - *Routine Neck Exam Present: supple. Absent: lymphadenopathy - *Routine Respiratory Exam Absent: accessory muscle use - *Routine Cardiovascular Exam Absent: JVD - *Routine Abdominal Exam Present: soft. Absent: tenderness Comments: gravid uterus - *Routine Extremities Exam Absent: cyanosis, clubbing, edema - *Routine Skin Exam Present: warm. Absent: rash - *Routine Neurological Exam Present: alert, oriented X3 Internal Medicine - CN: Reslt - Labs CBC & Chem 7: 03/07/22 07:15 03/06/22 10:05 Assessment and Plan (1) 31 weeks gestation of Status: Acute Category: Medical Code(s): Z3A.31 - 31 weeks gestation of (2) Flank pain Status: Acute Category: Medical Code(s): R10.9 - Unspecified abdominal pain 21-year-old white female with a 4-day history of left-sided flank pain. Ultrasound showed bilateral hydronephrosis and limited IVP was ordered and performed today. Limited IVP showed delay of excretion on the right side. There was prompt excretion of contrast into the left renal calyces at 5 minutes. There was excretion of contrast into the left ureter on the 15 and 30 minutes film. There was some combination of contrast throughout the ureter and a couple of small calcifications in the bony pelvis and unfortunately the films were cut off distally on the 5 and 15 minutes down these calcifications were not visualized. There was no opacification of contrast on the right side and there is delayed excreti
--- NOTE | 2022-03-08 16:20 | XR_ITS ---
PROCEDURE INFORMATION: Exam: XR Abdomen Exam date and time: 03/08/2022 4:53 PM Age: 21 years old Clinical indication: Abdominal pain; Flank; Left; Additional info: F/u ivp at 2pm patient is 31 weeks TECHNIQUE: Imaging protocol: XR of the abdomen. Views: Frontal supine view of the abdomen. 1 View. 4:56 p.m. COMPARISON: CR XR IVP W KUB 03/08/2022 1:58 PM FINDINGS: Lungs: Slight subsegmental atelectasis suggested at the lung bases. No consolidation, as visualized. Gastrointestinal tract: Nonobstructive bowel gas pattern. Organs: Compared with the prior 30 minute image performed at 2:40 p.m. on the earlier IVP, there is persistent moderate right hydronephrosis and proximal right hydroureter, and the distal right ureter is again not well visualized. Contrast material in the right collecting system appears less dense compared with the previous IVP study which could be due to changes in x-ray technique on this portable exam, versus slight partial emptying of contrast in the interval. Contrast has emptied from the left kidney and ureter since the earlier exam, the left collecting system is not well visualized on this exam suggesting no high-grade obstruction on the left. Note that the lower pelvis is clipped off the field of view, and the urinary bladder and distal ureter region is incompletely imaged on this study. No significant retained contrast in the visualized urinary bladder. Bones/joints: skeletal structures visualized within the gravid uterus, incompletely included on this exam. There is no evidence of acute fracture. IMPRESSION: 1. There is persistent right hydronephrosis and proximal right hydroureter, with retained contrast material in the collecting system compared with the earlier IVP. This remains indeterminate for extrinsic compression of the distal right ureter versus ureteral obstruction or UTI. The density of contrast in the right collecting system appears less on this follow-up exam, than on the earlier IVP , and this could be due to partial emptying of contrast in the interval. However, the follow-up study was performed with portable technique and the difference in density may be at least in part due to film technique. The distal right ureter is again not well visualized. 2. Contrast material has emptied from the left kidney and ureter since the earlier IVP, no evidence of high-grade obstruction on the left. 3. Gravid uterus again noted. 4. Additional nonemergency and chronic findings as above.
[2022-03-08 19:50] VITALS: BP 117/72; PULSE 68; RESP 18; TEMP 36.7; O2SAT 99
[2022-03-08 23:23] VITALS: BP 118/72; PULSE 71; RESP 18; TEMP 36.8; O2SAT 99
[2022-03-09 04:45] VITALS: BP 127/75; PULSE 85; RESP 18; TEMP 36.6; O2SAT 100
[2022-03-09 08:10] VITALS: BP 137/81; PULSE 85; RESP 20; TEMP 36.9; O2SAT 100
--- NOTE | 2022-03-09 11:26 | P.PN_ITS ---
Internal Medicine - PN: Subj *Date: 03/09/22 *Time: 11:26 Interval history: She had considerable amount of pain early this morning. She was seen by Dr. Stubbs and at this point time we just can watch her. Hopefully if there is a stone it will pass on its own. Exam Vital signs and Labs for Last 24 Hours: Temp Pulse Resp BP Pulse Ox 98.5 F 85 20 137/81 100 03/09/22 08:10 03/09/22 08:10 03/09/22 08:10 03/09/22 08:10 03/09/22 08:10 Laboratory Results - last 24 hr 03/06/22 08:36: Urine Opiates Screen Negative, Urine Methadone Screen Negative, Ur Barbituates Screen Negative, Ur Phencyclidine Scrn Negative, Ur Amphetamines Screen Negative, U Benzodiazepines Scrn Negative, Urine Cocaine Screen Negative, U Marijuana (THC) Screen Positive H I & O for Last 24 hours: Intake & Output 03/06/22 03/07/22 03/08/22 03/09/22 11:59 11:59 11:59 11:59 Output Total 600 / 600 Balance -600 / -600 Weight 152 lb Microbiology Reports for the Last 24 Hours: Microbiology 03/06/22 08:36 Urine,Clean Catch Urine Culture - Preliminary Gram Negative Rods - Constitutional mild distress Assessment and Plan (1) 31 weeks gestation of Status: Acute Category: Medical Code(s): Z3A.31 - 31 weeks gestation of (2) Flank pain Status: Acute Category: Medical Code(s): R10.9 - Unspecified abdominal pain (3) complicated by Suboxone maintenance, antepartum Status: Acute Category: Medical Code(s): O99.320 - Drug use complicating , unspecified trimester; F11.20 - Opioid dependence, uncomplicated (4) Maternal drug use complicating , antepartum Status: Acute Category: Medical Code(s): O99.320 - Drug use complicating , unspecified trimester - Assessment and plan all Dx Assessment and Plan for all problems:: She had considerably more pain throughout the night and early this morning. At this point in time we will just can continue to watch her. She has mostly left- sided renal colic. She has been on antibiotics for a number of days now. We will get another urinalysis.
[2022-03-09 12:02] LABS: Microscopic, Urine URINE MICROSCOPIC (MICROSCOPIC)
[2022-03-09 12:06] LABS: Appearance,Urine CLEAR (Clear); Bilirubin,Urine Negative (Negative); Blood, Urine 2+ (Negative); Color,Urine YELLOW (Yellow); Glucose,Urine (UA) Negative (Negative); Ketones,Urine Negative (Negative); Leukocyte Esterase,Urine 1+ (Negative); Nitrate,Urine Negative (Negative); PH,Urine 6.5 (5.0-8.5); Protein,Urine Negative (Negative); Specific Gravity, Urine <= 1.005 (1.005-1.030); Urobilinogen,Urine 0.2 EU/dl (0.2)
[2022-03-09 12:20] LABS: Bacteria,Urine Trace /lpf; RBC,Urine Occasional #/hpf (0-3)
--- NOTE | 2022-03-09 15:12 | HMH.CONFU ---
Internal Medicine - PN: Subj *Date: 03/09/22 *Time: 15:12 Interval history: Patient did well from a pain standpoint all day yesterday and into the evening but earlier this morning she had recurrence of some left-sided flank pain. Review of her IVP and a delayed 3-hour film showed evidence of physiologic hydro on the right side but the left side seems to be fairly normal with prompt excretion at 5 minutes and column of urine seen down to the distal ureter at 15 minutes and complete emptying of the left collecting system 3 hours later. There were a couple calcifications in the bony pelvis down near the bladder but unfortunately the x-rays cut off this portion of the bladder. It would have been nice to confirm that ureter goes beside these calcifications. Indirect evidence supports that these are not stones however. Exam Vital signs and Labs for Last 24 Hours: Temp Pulse Resp BP Pulse Ox 98.5 F 85 20 137/81 100 03/09/22 08:10 03/09/22 08:10 03/09/22 08:10 03/09/22 08:10 03/09/22 08:10 Laboratory Results - last 24 hr 03/06/22 08:36: Urine Opiates Screen Negative, Urine Methadone Screen Negative, Ur Barbituates Screen Negative, Ur Phencyclidine Scrn Negative, Ur Amphetamines Screen Negative, U Benzodiazepines Scrn Negative, Urine Cocaine Screen Negative, U Marijuana (THC) Screen Positive H 03/09/22 11:48: Urine Color Yellow, Urine Appearance Clear, Urine pH 6.5, Ur Specific [place] <= 1.005, Urine Protein Negative, Urine Glucose (UA) Negative, Urine Ketones Negative, Urine Blood 2+, Urine Nitrate Negative, Urine Bilirubin Negative, Urine Urobilinogen 0.2, Ur Leukocyte Esterase 1+ A, Urine RBC Occasional, Urine WBC 5-10, Ur Squamous Epith Cells 3-5, Urine Bacteria Trace I & O for Last 24 hours: Intake & Output 03/06/22 03/07/22 03/08/22 03/09/22 23:59 23:59 23:59 23:59 Output Total 600 / 600 Balance -600 / -600 Weight 68.946 kg Microbiology Reports for the Last 24 Hours: Microbiology 03/06/22 08:36 Urine,Clean Catch Urine Culture - Preliminary Gram Negative Rods - Constitutional no acute distress - *Routine HEENT Exam Head: Present: normocephalic Eye: Present: EOMI, PERRL ENT: Present: mucous membranes moist - *Routine Neck Exam Present: supple. Absent: lymphadenopathy - *Routine Respiratory Exam Absent: accessory muscle use - *Routine Cardiovascular Exam Absent: JVD - *Routine Abdominal Exam Present: soft. Absent: tenderness - *Routine Extremities Exam Absent: cyanosis, clubbing, edema - *Routine Skin Exam Present: warm. Absent: rash - *Routine Neurological Exam Present: alert, oriented X3 Assessment and Plan (1) 31 weeks gestation of Status: Acute Category: Medical Code(s): Z3A.31 - 31 weeks gestation of (2) Flank pain Status: Acute Category: Medical Code(s): R10.9 - Unspecified abdominal pain Patient admitted with left-sided flank pain and had a recurrence of left-sided flank pain early this morning. IVP results were reviewed and the I do not believe that there is a stone in the ureter at this time. We did discuss options including continued pain control and waiting and watching versus ureteroscopy to rule out a distal ureteral stone. She would like to wait and watch for now but if her pain continues we may need to proceed with ureteroscopy. (3) complicated by Suboxone maintenance, antepartum Status: Acute Category: Medical Code(s): O99.320 - Drug use complicating , unspecified trimester; F11.20 - Opioid dependence, uncomplicated (4) Maternal drug use complicating , antepartum Status: Acute Category: Medical Code(s): O99.320 - Drug use complicating , unspecified trimester
[2022-03-09 17:30] VITALS: BP 128/76; PULSE 81; RESP 18; TEMP 36.8; O2SAT 100
--- NOTE | 2022-03-09 18:40 | HMH.DCSUM ---
General - General Admission date:: 03/06/22 Discharge date: 03/09/22 HPI HPI: 21 yo G1 @ 31 4/7 weeks She presented to OB triage on the evening of 03/05/22 with complaint of abdominal cramping and vaginal spotting She had recent intercourse and concentrated urine; TOCO showed mild irritability but no contractions UA showed blood but no signs of cystitis She was treated with IV hydration and discharged home She represented on 03/06/22 with moderate-severe left flank pain, radiating around to abdomen Urine again showed blood and WBC elevated at 17.4 Because of location of pain, she was sent for renal ultrasound Bilateral hydronephrosis noted, with possible stone on left side, but no obstruction She was admitted for IV hydration and pain management status reassuring No signs of labor; cervix closed No vaginal bleeding today and no blood on exam glove complicated by chronic suboxone therapy and recreational THC use Objective Vital signs: Temp Pulse Resp BP Pulse Ox 98.3 F 81 18 128/76 100 03/09/22 17:30 03/09/22 17:30 03/09/22 17:30 03/09/22 17:30 03/09/22 17:30 Results Labs on day of discharge: Labs from last 24 hours 03/09/22 03/06/22 11:48 08:36 Urine Color Yellow Urine Appearance Clear Urine pH 6.5 Ur Specific [place] <= 1.005 Urine Protein Negative Urine Glucose (UA) Negative Urine Ketones Negative Urine Blood 2+ Urine Nitrate Negative Urine Bilirubin Negative Urine Urobilinogen 0.2 Ur Leukocyte Esterase 1+ A Urine RBC Occasional Urine WBC 5-10 Ur Squamous Epith Cells 3-5 Urine Bacteria Trace Urine Opiates Screen Negative Urine Methadone Screen Negative Ur Barbituates Screen Negative Ur Phencyclidine Scrn Negative Ur Amphetamines Screen Negative U Benzodiazepines Scrn Negative Urine Cocaine Screen Negative U Marijuana (THC) Screen Positive H Preliminary micro results at discharge 03/06/22 08:36 Urine Culture - Preliminary Urine,Clean Catch Gram Negative Rods DS: Diagnosis - Discharge Diagnosis (1) 31 weeks gestation of Status: Acute (2) Flank pain Status: Acute (3) complicated by Suboxone maintenance, antepartum Status: Acute (4) Maternal drug use complicating , antepartum Status: Acute Discharge Plan - Patient Discharge Instructions ACTIVITY: Limited activity DIET: continue same diet Patient Instructions: DI for Kidney Stones, DI for Urinary Tract Infection (UTI), How to Do Kick Counts, Antepartum Care - Follow up Plan Follow up with: Charlie Gamez MD [Staff Physician] - Disposition: Home, Self-Care Condition at discharge:: Improved Home Medications: Home Medications Medication Instructions Recorded Confirmed Type [id number] 400 mcg-om3 35 mg-dha 25 1 tab PO DAILY tab 12/11/21 03/08/22 History mg-epa 5 mg-fish oil chewable tablet buprenorphine 8 mg-naloxone 2 mg 2 tab SL DAILY 01/13/22 03/08/22 History sublingual tablet Docusate Sodium 100 mg PO DAILY 03/06/22 03/06/22 History Ferrous Sulfate 325 mg PO DAILY 03/06/22 03/06/22 History Prescriptions/Medication Reconciliation: Continued [id number] 400 mcg-om3 35 mg-dha 25 mg-epa 5 mg-fish oil chewable tablet 1 tab PO DAILY tab buprenorphine 8 mg-naloxone 2 mg sublingual tablet 2 tab SL DAILY Docusate Sodium 100 mg PO DAILY Ferrous Sulfate 325 mg PO DAILY - Problem Reconciliation Problems Reviewed?: Yes
[2022-03-25 13:41] LABS: Buprenorphine Positive (.)
== END 2022-03-09 19:14 | disposition home or self-care (01) ==
LOC: OBOUT 09:56 → OB 09:56
PROVIDERS: Nurse Practitioner Obstetrics & Gynecology; Admitting Provider Obstetrics & Gynecology; PCP Nurse Practitioner; Visit Provider Obstetrics & Gynecology
DX: O99.891 Other specified diseases and conditions complicating pregnancy (principal); N13.30 Unspecified hydronephrosis; Z3A.31 31 weeks gestation of pregnancy; O99.323 Drug use complicating pregnancy, third trimester; F15.21 Other stimulant dependence, in remission; O99.333 Smoking (tobacco) complicating pregnancy, third trimester; F17.210 Nicotine dependence, cigarettes, uncomplicated
CPT/HCPCS: 59025; 74018; 74400; 76770; 80053; 80305; 80348; 81001; 85007; 85025; 87086; 87088; 87186; 96365; C9803; G0378; J0131; J0595; J2405; Q9967; U0003; U0005

== ENCOUNTER → 2022-04-14 10:18 | Outpatient (CLI) | payer OTHER, SELFPAY ==
--- NOTE | 2022-04-14 10:22 | US_ITS ---
FINAL REPORT CLINICAL HISTORY: SGA FINDINGS: There is a single live intrauterine gestation. Presentation is cephalic. Placenta is posterior, high, grade 2. movement and practice breathing is seen. Heart rate is 140 beats per minute. AMNIOTIC FLUID: Appropriate amount. YAO: 12.58 cm MEASUREMENTS: ULTRASOUND AGE: 36 weeks 2 days. GESTATION AGE: 37 weeks 1 days. ESTIMATED WEIGHT: 2832 g GROWTH PERCENTILE: 28% BPD: 9.1 cm corresponding with 37 weeks 0 days. OFD: 10.7 cm corresponding with 34 weeks 2 days. Note that this measurement may be inaccurate due to head being very low in the pelvis. HC: 31.2 cm corresponding with 35 weeks 0 days. AC: 31.7 cm corresponding with 35 weeks 5 days. FL: 7.2 cm corresponding with 37 weeks 0 days. HC/AC: 0.98 CI: 85% FL/BPD: 79% FL/AC: 23% BIOPHYSICAL PROFILE Breathin/2 Movement: 2/2 Tone: 2/2 Fluid volume: 2/2 Total: 06/07 IMPRESSION: Single living IUP with an ultrasound age of 36 weeks 2 days. YAO of 12.58 cm Biophysical profile: 06/07 Reviewed, Interpreted and Dictated by Tae Stacy III, MD Transcribed by Gilda Maravilla Authenticated and [facility]
== END ==
PROVIDERS: PCP Nurse Practitioner; Visit Provider Nurse Practitioner Obstetrics & Gynecology
DX: O36.5990 Maternal care for other known or suspected poor fetal growth, unspecified trimester, not applicable or unspecified (principal)
CPT/HCPCS: 76816; 76819; 76820; 86403

== ENCOUNTER 2022-04-22 06:50 | Inpatient (IN) | payer OTHER, SELFPAY ==
[2022-04-22] VITALS (9 sets, daily range): BP systolic 113–129; BP diastolic 61–82; PULSE 73–98; RESP 12–18; TEMP 36.4–36.8; O2SAT 96–100; BMI 26.7; BMI 26.6
[2022-04-22 07:11] LABS: Microscopic, Urine URINE MICROSCOPIC (MICROSCOPIC)
[2022-04-22 07:22] LABS: Coronavirus 19, PCR Not Detected (NotDetected); Influenza A, PCR Not Detected (NotDetected); Influenza B, PCR Not Detected (NotDetected)
[2022-04-22 07:22] LABS: Appearance,Urine CLEAR (Clear); Bilirubin,Urine Negative (Negative); Blood, Urine 1+ (Negative); Color,Urine DK YELLOW (Yellow); Glucose,Urine (UA) Negative (Negative); Ketones,Urine Negative (Negative); Leukocyte Esterase,Urine Negative (Negative); Nitrate,Urine Negative (Negative); Protein,Urine Negative (Negative); Specific Gravity, Urine 1.015 (1.005-1.030); Urobilinogen,Urine 0.2 EU/dl (0.2)
[2022-04-22 07:29] LABS: Basophils # 0.2 K/mm3 (0-0.2); Eosinophils # 0.1 K/mm3 (0.0-0.4); Eosinophils % 0.3 % (0.1-12.0); Hematocrit 37.7 % (37.0-47.0); Hemoglobin 12.7 g/dL (12.2-16.2); Lymphocytes % 12.2 % (10-50); Mean Corpuscular HGB Conc 33.7 g/dL (31.8-35.4); Mean Corpuscular Volume 92.1 fl (81-99); Mean Platelet Volume 9.1 fl (7.4-10.4); Monocytes # 0.9 K/mm3 (0.1-1.0); Monocytes % 5.5 % (1.7-9.3); Neutrophils # 13.5 K/mm3 (1.8-7.8); Platelet Count 231 K/mm3 (142-424); White Blood Count 16.7 K/mm3 (4.8-10.8)
[2022-04-22 07:33] LABS: Bacteria,Urine Trace /lpf; WBC,Urine Occasional #/hpf (0-3)
[2022-04-22 07:34] LABS: Amphetamine/Metha Screen,Urine Negative ng/ml (<1000); Barbiturates Screen,Urine Negative ng/ml (<200)
[2022-04-22 07:35] LABS: Benzodiazepines Screen,Urine Negative ng/ml (<200)
[2022-04-22 07:36] LABS: Cannabinoid Screen,Urine Negative ng/ml (<50); Cocaine Screen,Urine Negative ng/ml (<300)
[2022-04-22 07:37] LABS: Methadone Screen,Urine Negative ng/ml (<300)
[2022-04-22 07:38] LABS: MANUAL DIFFERENTIAL MANUAL DIFFERENTIAL (MANUAL DIFF)
[2022-04-22 07:38] LABS: Opiate Screen,Urine Negative ng/ml (<300); Phencyclidine Screen,Urine Negative ng/ml (<25)
[2022-04-22 08:31] LABS: Lymphocytes % 16 % (10-50); Monocytes % 4 % (2-9); Neutrophils % 80 % (42-76); Total Cells Counted 100
[2022-04-22 08:32] LABS: Ovalocytes 1+; Platelet Estimate Normal; Tear Drop Cells 1+
--- NOTE | 2022-04-22 09:04 | HMH.PHAINT ---
MEDICATION RECONCILIATION COMPLETE USING LIST FROM MOST RECENT OB OFFICE AND CALL TO [facility] TO VERIFY SUBOXONE DOSE.
--- NOTE | 2022-04-22 10:06 | HMH.HP ---
*Admission Date: 04/22/22 *Chief complaint: contractions *History of present illness: 21 yo G0 admitted at 38 3/7 with regular contractions care [facility]--Dr. Gamez Dating by 20 week ultrasound complicated by late care, history of IV drug abuse, history of methamphetamine abuse, subutex abuse, cigarette smoking, THC abuse and bulemia. Rubella non-immune Arranagements were made for treatment in suboxone clinic and she is currently prescribed 16mg daily Upon arrival today, cervix 3cm/90% with contractions q1-2 minutes Amniotomy with thick meconium noted IUPC and FSE placed without difficulty or complication [facility] History *Have you ever received a pneumonia vaccine?: No *Have you received a flu vaccine this season?: No Anesthesia experience/problems:: nac Other Surgeries: Yes: No Previous Surgery. No: Amputation: No Fractures: No - *Social History Smoking Status: Current every day smoker Tobacco Type: cigarettes Alcohol Intake: never Substance Use Type: former substance user, methamphetamine, marijuana *Occupational Status:: unemployed *Travel in the last 8 weeks: None Family Hx:: No significant family history Para: 0 Meds Home Medications Medication Instructions Recorded Confirmed Type [id number] 400 mcg-om3 35 mg-dha 25 1 tab PO DAILY tab 12/11/21 04/22/22 History mg-epa 5 mg-fish oil chewable tablet buprenorphine 8 mg-naloxone 2 mg 2 tab SL DAILY 01/13/22 04/22/22 History sublingual tablet Docusate Sodium 100 mg PO DAILY 03/06/22 04/22/22 History Ferrous Sulfate 325 mg PO DAILY 03/06/22 04/22/22 History Allergies Allergy/AdvReac Type Severity Reaction Status Date / Time No Known Allergies Allergy Verified 04/20/22 09:34 Exam Vital signs and Labs for Last 24 Hours: Temp Pulse Resp BP Pulse Ox 98.2 F 98 H 18 121/82 99 04/22/22 07:10 04/22/22 07:10 04/22/22 07:10 04/22/22 07:10 04/22/22 07:10 Laboratory Results - last 24 hr 04/22/22 06:40: Urine Color Dk yellow, Urine Appearance Clear, Urine pH 6.0, Ur Specific [place] 1.015, Urine Protein Negative, Urine Glucose (UA) Negative, Urine Ketones Negative, Urine Blood 1+, Urine Nitrate Negative, Urine Bilirubin Negative, Urine Urobilinogen 0.2, Ur Leukocyte Esterase Negative, Urine RBC 3-5, Urine WBC Occasional, Ur Squamous Epith Cells 3-5, Urine Bacteria Trace 04/22/22 06:40: Urine Opiates Screen Negative, Urine Methadone Screen Negative, Ur Barbituates Screen Negative, Ur Phencyclidine Scrn Negative, Ur Amphetamines Screen Negative, U Benzodiazepines Scrn Negative, Urine Cocaine Screen Negative, U Marijuana (THC) Screen Negative 04/22/22 07:00: WBC 16.7 H, RBC 4.10 L, Hgb 12.7, Hct 37.7, MCV 92.1, MCH 31.0, MCHC 33.7, RDW 14.0, Plt Count 231, MPV 9.1, Neut % (Auto) 81.0 H, Lymph % (Auto) 12.2, [place] % (Auto) 5.5, Eos % (Auto) 0.3, Baso % (Auto) 1.0, Neut # (Auto) 13.5 H, Lymph # (Auto) 2.0, [place] # (Auto) 0.9, Eos # (Auto) 0.1, Baso # (Auto) 0.2, Total Counted 100, Neutrophils % (Manual) 80 H, Lymphocytes % (Manual) 16, Monocytes % (Manual) 4, Platelet Estimate Normal, Tear Drop Cells 1+, Ovalocytes 1+ 04/22/22 07:00: SARS-CoV-2 (PCR) Not detected, Influenza A Untype (PCR) Not detected, Influenza Type B (PCR) Not detected I & O for Last 24 hours: Intake & Output 04/19/22 04/20/22 04/21/22 04/22/22 11:59 11:59 11:59 11:59 Weight 155 lb 13.869 oz - Constitutional no acute distress - *Routine HEENT Exam Head: Present: normocephalic Eye: Absent: conjunctival icterus, scleral injection ENT: Present: mucous membranes moist - *Routine Neck Exam Present: supple. Absent: lymphadenopathy - *Routine Respiratory Exam Present: CTA bilaterally - *Routine Cardiovascular Exam Present: RRR - *Routine Abdominal Exam Present: soft, normoactive bowel sounds. Absent: tenderness - *Routine Rectal Exam Rectal:: deferred - *Routine Genitalia Exam Genitalia:: normal female Comment:: cervix 3/
--- NOTE | 2022-04-22 10:16 | HMH.ANESCL ---
[facility] Anesthesia Checklist - Patient Identification Patient Identification: Arm Band - Structural Data Admitted From: Home Planned Operative Procedure/s: Labor Epidural Consent for Planned Operative Procedure(s) Verified: Yes Verified Documents: Surgical Consent, History and Physical - NPO Status Verified Time NPO: 00:00 - Additional verifications Anesthesia Reactions: No - Airway Assessment C-Spine Mobility Assessed: Yes TMJ Mobility Assessed: Yes Dentition: Good Dentition - Anesthesia Plan Anesthesia Risk discussed: Yes Anesthesia Plan: Verified ASA Class: II Anesthesia Type: Epidural [facility] History I have reviewed the patient's past medical history: Yes *Have you ever received a pneumonia vaccine?: No *Have you received a flu vaccine this season?: No Anesthesia experience/problems:: nac Other Surgeries: No: Amputation: No Fractures: No - *Social History Smoking Status: Current every day smoker Tobacco Type: cigarettes Alcohol Intake: never Substance Use Type: former substance user, methamphetamine, marijuana *Occupational Status:: unemployed *Travel in the last 8 weeks: None Family Hx:: No significant family history Para: 0
--- NOTE | 2022-04-22 12:55 | P.PN_ITS ---
[facility] Anesthesia Record Part I Intake, IV Amount: 2,000 Estimated blood loss (mL): 600 Urine output (mL): 350 Blood Pressure: 123/65 SaO2: 100 Pulse Rate: 92 Respiratory Rate: 16 Temperature: 98.1 F Patient is:: Awake, Stable Stable to PACU at:: 12:45
--- NOTE | 2022-04-22 13:19 | SUR.PHASEI ---
1313 David Lockhart RN called and provided detailed report to Gogo Muniz RN. 1315 transported via bed to OB room. vital signs stable. denies pain. left pt in stable condition with Gogo Muniz RN at bedside.
--- NOTE | 2022-04-22 13:19 | SUR.OPER ---
1156-viable infant male born at this time
--- NOTE | 2022-04-22 15:13 | P.OP_ITS ---
Date of procedure: 04/22/22 Pre-op Diagnosis:: 1. 38 3/ 2. intolerance of labor 3. Chronic suboxone therapy 4. Tobacco abuse during 5. Meconium stained amnotic fluid Post-op Diagnosis:: same Procedure performed:: Primary Low Transverse C Section Surgeon:: Reina Garcia MD Buffer Chrome(s):: Esperanza Clemons DO MAINTENANCE SUPERVISOR 2ND SHIFT:: Other Anesthesia: epidural Estimated blood loss (mL): 600 Operative findings:: Thick meconium stained amniotic fluid Vigorous male in vertex presentation Calcified placenta Grossly normal uterus, fallopian tubes and ovaries Operative note:: The patient was taken to the OR and adequate epidural anesthesia was confirmed. She was prepped and draped in normal sterile fashion. A pfannenstiel skin incision was made with the scalpel and carried down to the fascia. The fascia was incised in the midline and sharply dissected off the rectus muscles. The m uscles were in the midline and the peritoneum was entered sharply and extended bluntly. The Westley-O self retaining retractor was placed in the abdomen and a bladder flap was created. The uterus was incised in the lower uterine segment in a transverse fashion and extended bluntly. Thick meconium stained amniotic fluid was noted. The was delivered in controlled fashion, without complication or shoulder dystocia. The infant was vigorous at and handed to awaiting adhesive bonding machine operator and nursing staff for evaluation after the umbilical cord was clamped and cut. Cord blood was collected and a cord segment was preserved. The placenta was manually extracted and noted to be intact. The uterus was repaired with 0-vicryl in a running/locked fashion. A second layer was placed for hemostasis. The bladder flap was closed with 2-0 vicryl in a running fashion. The peritoneum was closed with 2-0 vicryl in a running fashion. The fascia was closed with #1 vicryl in a running fashion. The subcutaneous fat was closed with 2-0 monocryl in a running fashion. The skin was closed with 2-0 stratafix in a subcuticular fashion. The patient tolerated the procedure well. Sponge, lap, needle and instrument counts were correct x 2. TAP block was placed by anesthesia following the conclusion of C Section. She was taken to PACU awake and in stable condition. Condition: stable Disposition: PACU Specimens:: Placenta Complications:: None
--- NOTE | 2022-04-22 17:21 | HMH.LABNOT ---
Labor Note - Subjective: Date: 04/22/22 Time: 11:11 regular contraction Comment:: Regular contractions with repetitive deep variable decelerations Minimal change to cervix-- 3.5cm tracing in context of meconium stained amniotic fluid is appropriate for delivery via c section Will proceed to OR - Assessment: Patient Problems: All Active Problems Active labor at term (Acute) Late care (Acute) Tobacco smoking complicating (Acute) Rubella non-immune status, antepartum (Acute) 38 weeks gestation of (Acute) complicated by Suboxone maintenance, antepartum (Acute) Flank pain (Acute) 31 weeks gestation of (Acute) Maternal drug use complicating , antepartum (Acute) (Acute) Atypical chest pain (Acute) Acute bronchitis (Acute) Pleurisy (Acute) Abdominal pain (Acute)
--- NOTE | 2022-04-23 08:17 | P.PN_ITS ---
[facility] Anesthesia Record Part II Discharge Time: 13:15 Destination: Obstetric PACU nurse assessment reviewed?: Yes Patient Condition:: Good Anesthesia Complications:: None Swallowing reflex intact?: Yes Cyanosis?: No Blood Pressure: 120/66 Pulse Rate: 73 Temperature: 97.6 F Mental Status: Alert & Oriented Pain level:: 0 Nausea and/or vomitting:: None Intake, IV Amount: 0
[2022-04-23 08:18] VITALS: BP 120/66; PULSE 73; TEMP 36.4
--- NOTE | 2022-04-23 10:50 | SW/DCPLANNER ---
Addendum entered by Shayna Macedo 04/23/22 12:43: Per Central Intake this case did NOT meet criteria for investigation. Original Note: I received a referral for this patient regarding: history of drug use, patient is currently enrolled in Suboxone clinic but had been buying off the street prior to enrolling in clinic, THC positive throughout and late care. Infant male (James Blas) was born on 04/22/2024. 's father (James Blas 08/21/96) was present at time of my visit. Patient, James and will reside at [address] [place] [address]. Patient's contact number is [phone]. This is patient and father's first child. Patient is established with [facility] and is interested in [facility]. I will reach out to Khai Pittmanie with [facility]. Patient stated that she has the following items at home: crib, clothing, carseat, diapers and will be . Patient's nurse (Dolores) stated that patient and father are appropriate with infant. Patient did test positive for Suboxone and THC on the following dates: 12/11/21, 01/13/22, 02/15/22, 03/01/22, 03/05/22, 03/22/22, 03/31/22 and 04/14/22. urine drug screen is negative. Patient admits to using THC throughout due to eating disorder. Patient is established with Sub[facility]one Clinic in [place] ([facility]) but is unsure of start date. Patient stated that limited visits was due to not knowing she was till four months along. I have reported this case to Central Intake: ID# [id number]. Patient will discharge on . At this time infant scored a two due to excessive sucking and tremors.
--- NOTE | 2022-04-23 13:24 | HMH.ACPN2 ---
Internal Medicine - PN: Subj *Date: 04/23/22 *Time: 13:24 Interval history: Postop/ day #1 S/P primary c section for intolerance of labor Procedure uncomplicated Postop Hgb 10.0 and she is asymptomatic with anemia Mild wheezing last night resolved with nebulizer treatment; h/o reactive airway disease Tolerating regular diet Ambulating and voiding without difficulty Lochia appropriate Pain control has been sufficient thus far; she has resumed scheduled daily Suboxone Exam Vital signs and Labs for Last 24 Hours: Temp Pulse Resp BP Pulse Ox 97.6 F 73 18 120/66 96 04/23/22 08:18 04/23/22 08:18 04/22/22 16:00 04/23/22 08:18 04/22/22 16:00 Laboratory Results - last 24 hr 04/23/22 06:28: Hgb 10.0 L D, Hct 30.0 L I & O for Last 24 hours: Intake & Output 04/21/22 04/22/22 04/23/22 04/24/22 11:59 11:59 11:59 11:59 Intake Total 2000 / 2000 Output Total 1200 / 1200 Balance 800 / 800 Weight 155 lb 13.869 oz Narrative: CONSTITUTIONAL: no acute distress HEENT: mucous membranes moist PULMONARY: breathing unlabored without audible wheezes CV: no tachycardia or visible JVD; normal LE peripheral pulses ABD: soft, ND; appropriately tender but no rebound/guarding : fundus firm below umbilicus SKIN: incision well approximated with no drainage, erythema or induration EXT: 1+ edema LEs NEURO: alert/oriented, no altered mental status PSYCH: appropriate mood and demeanor without anxiety/depression Assessment and Plan (1) Active labor at term Status: Acute Category: Medical (2) 38 weeks gestation of Status: Acute Category: Medical Code(s): Z3A.38 - 38 weeks gestation of (3) Late care Status: Acute Category: Medical Code(s): O09.30 - Supervision of with insufficient care, unspecified trimester (4) Maternal drug use complicating , antepartum Status: Acute Category: Medical Code(s): O99.320 - Drug use complicating , unspecified trimester (5) complicated by Suboxone maintenance, antepartum Status: Acute Category: Medical Code(s): O99.320 - Drug use complicating , unspecified trimester; F11.20 - Opioid dependence, uncomplicated (6) Rubella non-immune status, antepartum Status: Acute Category: Medical Code(s): O09.899 - Supervision of other high risk pregnancies, unspecified trimester; Z28.39 - Other underimmunization status (7) Tobacco smoking complicating Status: Acute Category: Medical Code(s): O99.330 - Smoking (tobacco) complicating , unspecified trimester (8) S/P Status: Acute Category: Surgical Code(s): Z98.891 - History of uterine scar from previous surgery (9) Anemia associated with acute blood loss Status: Acute Category: Medical Code(s): D62 - Acute posthemorrhagic anemia - Assessment and plan all Dx Assessment and Plan for all problems:: Routine postop/ care Continue Suboxone 16mg daily, Ibuprofen for pain PO FeSO4 for anemia
[2022-04-23 15:05] VITALS: PULSE 73; PULSE 77
[2022-04-23 21:00] VITALS: RESP 18
[2022-04-24 01:50] VITALS: PULSE 71; PULSE 73
[2022-04-24 08:55] VITALS: BP 136/80; PULSE 102; RESP 18; TEMP 36.9; O2SAT 98
[2022-04-24 09:17] VITALS: PULSE 76; PULSE 77
--- NOTE | 2022-04-24 10:52 | HMH.ACPN2 ---
Internal Medicine - PN: Subj *Date: 04/24/22 *Time: 10:52 Interval history: POD # 2 s/p PLTCS She is resting comfortably in bed. She admits pain is better controlled since adjusting medications. Reports light lochia. She admits to wheezing and cough. She denies fever/chills. States she had wheezing and congestion when she saw Dr. Gamez in the office. She is a smoker. She denies nausea/vomiting, headache and swelling. She is bottle feeding. Tolerating regular diet. Voiding without difficulty. Passing flatus. Exam Vital signs and Labs for Last 24 Hours: Temp Pulse Resp BP Pulse Ox 98.4 F 76 18 136/80 98 04/24/22 08:55 04/24/22 09:17 04/24/22 08:55 04/24/22 08:55 04/24/22 08:55 I & O for Last 24 hours: Intake & Output 04/21/22 04/22/22 04/23/22 04/24/22 23:59 23:59 23:59 23:59 Intake Total 2000 / 2000 0 / 0 Output Total 1200 / 1200 Balance 800 / 800 0 / 0 Weight 155 lb 13.869 oz - Constitutional no acute distress - *Routine HEENT Exam Head: Present: normocephalic Eye: Absent: conjunctivae pink ENT: Present: mucous membranes moist - *Routine Respiratory Exam Present: wheezes (inspiratory and expiratory wheeze). Absent: respiratory distress - *Routine Cardiovascular Exam Present: RRR - *Routine Abdominal Exam Present: soft, normoactive bowel sounds. Absent: tenderness, distended - *Routine Extremities Exam Present: full ROM. Absent: edema, calf tenderness - *Routine Neurological Exam Present: alert, oriented X3 Assessment and Plan (1) Active labor at term Status: Acute Category: Medical (2) 38 weeks gestation of Status: Acute Category: Medical Code(s): Z3A.38 - 38 weeks gestation of (3) Late care Status: Acute Category: Medical Code(s): O09.30 - Supervision of with insufficient care, unspecified trimester (4) Maternal drug use complicating , antepartum Status: Acute Category: Medical Code(s): O99.320 - Drug use complicating , unspecified trimester (5) complicated by Suboxone maintenance, antepartum Status: Acute Category: Medical Code(s): O99.320 - Drug use complicating , unspecified trimester; F11.20 - Opioid dependence, uncomplicated (6) Rubella non-immune status, antepartum Status: Acute Category: Medical Code(s): O09.899 - Supervision of other high risk pregnancies, unspecified trimester; Z28.39 - Other underimmunization status (7) Tobacco smoking complicating Status: Acute Category: Medical Code(s): O99.330 - Smoking (tobacco) complicating , unspecified trimester (8) S/P Status: Acute Category: Surgical Code(s): Z98.891 - History of uterine scar from previous surgery (9) Anemia associated with acute blood loss Status: Acute Category: Medical Code(s): D62 - Acute posthemorrhagic anemia (10) Viral URI Status: Acute Category: Medical Code(s): J06.9 - Acute upper respiratory infection, unspecified - Assessment and plan all Dx Assessment and Plan for all problems:: Continue routine care Start Mucinex BID and Zpack for acute URI Encouraged increased ambulation and IS use Plan d/c tomorrow, patient to room in with baby
[2022-04-24 15:58] VITALS: BP 129/69; PULSE 93; RESP 18; TEMP 36.8; O2SAT 97
[2022-04-25 08:00] VITALS: BP 128/78; PULSE 84; RESP 19; TEMP 36.6; O2SAT 100
--- NOTE | 2022-04-25 15:37 | HMH.OBDCSM ---
General - General Admission date:: 04/22/22 Discharge date: 04/25/22 HPI - History of Present Illness History of present illness: Patient is a 21yo at 38 3/7 weeks, by 20 week ultrasound, admitted to [facility] for onset of labor. She received care with [facility]. complicated by late care, history of IV drug abuse, history of methamphetamine abuse, subutex use, cigarette smoking, THC abuse and bulimia. She was getting treatment in suboxone clinic and she is currently prescribed 16mg daily. Upon arrival to L&D cervix was 3cm/90% with contractions q1-2 minutes. Amniotomy revealed thick meconium noted. IUPC and FSE was placed without difficulty or complication. She was having regular contractions with repetitive deep variable decelerations. Minimal change to cervix... 3.5cm. tracing in context of meconium stained amniotic fluid is appropriate for delivery via c section. She was taken to the OR for primary . Hospital Course Hospital Course: POD # 3 Doing well. Pain controlled. Light lochia. Admits to bilateral lower extremity edema. No other complaints or concerns. She feels like she is breathing better since starting Mucinex and antibiotics. In summary: She was noted to have inspiratory and expiratory wheeze upon admission. On POD # 2 she was started on Mucinex and Zpack for viral URI. Vitals were stable during hospital stay. No fever/chills, chest pain, shortness of breath, nausea or vomiting. Denied headache and vision changes. Pain controlled. She was doing well postoperatively. She is breast and formula feeding. Rhogam Administration: Not Indicated Objective Vital signs: Temp Pulse Resp BP Pulse Ox 97.8 F 84 19 128/78 100 04/25/22 08:00 04/25/22 08:00 04/25/22 08:00 04/25/22 08:00 04/25/22 08:00 no acute distress, average body habitus - *Routine HEENT Exam Head: Present: normocephalic Eye: Absent: conjunctivae pink ENT: Present: mucous membranes moist - *Routine Respiratory Exam Present: wheezes (Inspiratory and expiratory wheeze) - *Routine Cardiovascular Exam Present: RRR - *Routine Abdominal Exam Present: soft, normoactive bowel sounds. Absent: tenderness, distended Comments: Incision clean/dry and intact. Healing well. Uterine fundus firm and below umbilicus - *Routine Extremities Exam Present: edema (+2 bilateral lower extremity edema), full ROM. Absent: clubbing, calf tenderness - *Routine Neurological Exam Present: alert, oriented X3 DS: Diagnosis - Discharge Diagnosis (1) Active labor at term Status: Acute (2) 38 weeks gestation of Status: Acute (3) Late care Status: Acute (4) Maternal drug use complicating , antepartum Status: Acute (5) complicated by Suboxone maintenance, antepartum Status: Acute (6) Rubella non-immune status, antepartum Status: Acute (7) Tobacco smoking complicating Status: Acute (8) S/P Status: Acute (9) Anemia associated with acute blood loss Status: Acute (10) Viral URI Status: Acute Discharge Plan - Patient Discharge Instructions ACTIVITY: Continue current activity DIET: continue same diet Additional Instructions: Nothing in the vagina for 6 weeks No heavy lifting No strenuous activity No tub baths for 6 weeks Patient Instructions: How to Care for a Surgical Wound, Depression, Hemorrhage, DI for , DI for Pre-eclampsia, DI for Postoperative Pain, [facility] Post Discharge Instructions - Follow up Plan Follow up with: Charlie Gamez MD [Staff Physician] - Reina Garcia MD [Staff Physician] - 04/30/22 9:30 am Disposition: Home, Self-Care Condition at discharge:: Stable Home Medications: Home Medications Medication Instructions Recorded Confirmed Type [id number] 400 mcg-om3 35 mg-dha 25 1 tab PO DAILY tab 12/11/21 04/22/22 History mg-epa 5 mg-fish oi
[2022-05-07 11:24] LABS: Buprenorphine, Urine Positive (Cutoff=10)
== END 2022-04-25 23:30 | disposition home or self-care (01) | DRG 787 ==
LOC: OBOUT 06:51 → OB 06:51
PROVIDERS: Nurse Practitioner Obstetrics & Gynecology; Admitting Provider Obstetrics & Gynecology; PCP Nurse Practitioner; Visit Provider Obstetrics & Gynecology
PROC: 10D00Z1 Extraction of Products of Conception, Low, Open Approach (ICD-10-PCS; CPT 59514; principal; 2022-04-22 11:30)
DX: O36.8330 Maternal care for abnormalities of the fetal heart rate or rhythm, third trimester, not applicable or unspecified (principal); O99.323 Drug use complicating pregnancy, third trimester; O77.0 Labor and delivery complicated by meconium in amniotic fluid; Z3A.38 38 weeks gestation of pregnancy; Z37.0 Single live birth; Z23 Encounter for immunization; O99.333 Smoking (tobacco) complicating pregnancy, third trimester; F17.210 Nicotine dependence, cigarettes, uncomplicated; F11.11 Opioid abuse, in remission; O99.013 Anemia complicating pregnancy, third trimester; D64.9 Anemia, unspecified
CPT/HCPCS: 59514; 36415; 59025; 80305; 80307; 81001; 85007; 85014; 85018; 85025; 86850; 90707; 94640; 94761; C1758; C9290; C9803; G0283; J0574; J2405; J2505; U0003; U0005

== ENCOUNTER → 2022-09-30 13:17 | Outpatient (CLI) | payer OTHER, SELFPAY | PROVIDERS: PCP Nurse Practitioner; Visit Provider Nurse Practitioner Obstetrics & Gynecology | DX: N92.6 Irregular menstruation, unspecified (principal); Z32.00 Encounter for pregnancy test, result unknown | CPT/HCPCS: 36415; 84702 ==

== ENCOUNTER → 2022-12-01 14:40 | Outpatient (CLI) | payer OTHER, SELFPAY ==
--- NOTE | 2022-12-01 14:46 | US_ITS ---
FINAL REPORT CLINICAL HISTORY: dates FINDINGS: There is a single live intrauterine gestation. Presentation is breech. Placenta is lateral. movement is noted. heart rate of 152 bpm. Visualized anatomy appears normal. MEASUREMENTS: ULTRASOUND AGE: 15 weeks 6 days. GESTATION AGE: 17 weeks 5 days. ESTIMATED WEIGHT: 134 g GROWTH PERCENTILE: <2% CRL: 10 cm consistent with 15 weeks 6 days BPD: 3.3 cm consistent with 16 weeks 2 days. OFD: 3.6 cm consistent with 14 weeks 6 days. HC: 10.9 cm consistent with 15 weeks 2 days. AC: 10.6 cm consistent with 16 weeks 4 days. FL: 1.7 cm consistent with 15 weeks 1 day. HC/AC: 1.03 CI: 91 % FL/BPD: 52% FL/AC: 16% IMPRESSION: Single living IUP with an ultrasound age of 15 weeks 6 days. Reviewed, Interpreted and Dictated by Tae Stacy III, MD Transcribed by Lanie Glez Authenticated and . [facility]
== END ==
PROVIDERS: PCP Nurse Practitioner; Visit Provider Nurse Practitioner Obstetrics & Gynecology
DX: Z34.90 Encounter for supervision of normal pregnancy, unspecified, unspecified trimester (principal)
CPT/HCPCS: 76805

== ENCOUNTER 2022-12-29 11:19 | Outpatient (CLI) | payer OTHER, SELFPAY ==
[2022-12-29 11:30] VITALS: PULSE 77; RESP 16; TEMP 36.8; O2SAT 100; BMI 22.8
[2022-12-29 12:09] LABS: Microscopic, Urine URINE MICROSCOPIC (MICROSCOPIC)
[2022-12-29 12:11] LABS: Appearance,Urine CLEAR (Clear); Blood, Urine 2+ (Negative); Color,Urine YELLOW (Yellow); Glucose,Urine (UA) Negative (Negative); Ketones,Urine Negative (Negative); Leukocyte Esterase,Urine 1+ (Negative); Nitrate,Urine Negative (Negative); Protein,Urine Negative (Negative); Specific Gravity, Urine 1.025 (1.005-1.030); Urobilinogen,Urine 0.2 EU/dl (0.2)
[2022-12-29 12:22] LABS: Bacteria,Urine Trace /lpf; Bilirubin,Urine 1+ (Negative); WBC,Urine Occasional #/hpf (0-3)
[2022-12-29 12:23] LABS: Amphetamine/Metha Screen,Urine Negative ng/ml (<1000)
[2022-12-29 12:24] LABS: Barbiturates Screen,Urine Negative ng/ml (<200); Benzodiazepines Screen,Urine Negative ng/ml (<200)
[2022-12-29 12:25] LABS: Cannabinoid Screen,Urine Positive ng/ml (<50)
[2022-12-29 12:26] LABS: Cocaine Screen,Urine Negative ng/ml (<300); Methadone Screen,Urine Negative ng/ml (<300)
[2022-12-29 12:27] LABS: Opiate Screen,Urine Negative ng/ml (<300); Phencyclidine Screen,Urine Negative ng/ml (<25)
== END 2022-12-29 13:20 | disposition home or self-care (01) ==
LOC: OBOUT 11:20 → OB 11:21
PROVIDERS: PCP Nurse Practitioner; Visit Provider Obstetrics & Gynecology
DX: O26.892 Other specified pregnancy related conditions, second trimester (principal); Z3A.20 20 weeks gestation of pregnancy
CPT/HCPCS: 80305; 81001; 87086; 96365; G0463

== ENCOUNTER → 2023-01-31 12:53 | Outpatient (CLI) | payer OTHER, SELFPAY ==
--- NOTE | 2023-01-31 12:54 | US_ITS ---
FINAL REPORT CLINICAL HISTORY: 20 week anatomy scan please use anatomy template FINDINGS: There is a single live intrauterine gestation. Presentation is cephalic. The cervix measures 1.7 cm with Valsalva. Placenta is anterior with placental lakes. movement is noted. Cardiac activity is confirmed at 146 beats per minute. Three-vessel cord with satisfactory umbilical cord insertion. Four-chamber heart is noted. brain and ventricles are unremarkable. Chest and diaphragm are unremarkable. ABDOMEN: Both kidneys are unremarkable. Stomach is unremarkable. SPINE: No anomalies identified. Both arms and legs noted. AMNIOTIC FLUID: Appropriate amount. MEASUREMENTS: ULTRASOUND AGE: 24 weeks 0 days. GESTATION AGE: 24 weeks 6 days. ESTIMATED WEIGHT: 679 g GROWTH PERCENTILE: 18% BPD: 5.8 cm consistent with 23 weeks 5 days. OFD: 7.5 cm consistent with 23 weeks 6 days. HC: 21.1 cm consistent with 23 weeks 1 days. AC: 20.3 cm consistent with 25 weeks 0 days. FL: 4.2 cm consistent with 23 weeks 6 days. CEREBELLUM: 2.5 cm consistent with 24 weeks 5 days. HUMERUS: 4.0 cm consistent with 24 weeks 1 days. HC/AC: 1.04 CI: 76% FL/BPD: 74% FL/AC: 21% IMPRESSION: Single living IUP with an ultrasound age of 24 weeks 0 days. No anomalies noted. Reviewed, Interpreted and Dictated by Fox oBrja MD Transcribed by Bob Torres Authenticated and [facility]
== END ==
PROVIDERS: PCP Nurse Practitioner; Visit Provider Nurse Practitioner Obstetrics & Gynecology
DX: Z34.90 Encounter for supervision of normal pregnancy, unspecified, unspecified trimester (principal); Z3A.20 20 weeks gestation of pregnancy
CPT/HCPCS: 76811

== ENCOUNTER → 2023-02-19 10:33 | Outpatient (CLI) | payer OTHER, SELFPAY ==
[2023-02-19 11:26] LABS: Glucose,Fasting 79 mg/dl (74-100)
[2023-02-19 12:26] LABS: Glucose 1 Hour 74 mg/dL (74-100)
== END ==
PROVIDERS: Obstetrics & Gynecology; PCP Nurse Practitioner; Visit Provider Nurse Practitioner Obstetrics & Gynecology
DX: Z34.90 Encounter for supervision of normal pregnancy, unspecified, unspecified trimester (principal); Z3A.27 27 weeks gestation of pregnancy
CPT/HCPCS: 36415; 82951

== ENCOUNTER → 2023-03-24 14:12 | Outpatient (CLI) | payer OTHER, SELFPAY ==
--- NOTE | 2023-03-24 14:15 | US_ITS ---
FINAL REPORT CLINICAL HISTORY: sga FINDINGS: There is a single live intrauterine gestation. Presentation is cephalic. The cervix is closed and measures 3.5 cm Placenta is anterior grade 1. Cardiac activity is confirmed at 133 bpm. Fetus is active. Amniotic fluid index is appropriate amount. The S/D is 3.83. MEASUREMENTS: ULTRASOUND AGE: 30 weeks 6 days. GESTATION AGE: 32 weeks 2 days. ESTIMATED WEIGHT: 1557 g GROWTH PERCENTILE: 4% BPD: 7.89 cm corresponds to 31 weeks 5 days. OFD: 9.76 cm corresponds to 30 weeks 0 days. HC: 27.88 cm corresponds to 30 weeks 4 days. AC: 25.46 cm corresponds to 29 weeks 5 days. FL: 5.97 cm corresponds to 31 weeks 1 day. HC/AC: 1.10 CI: 81% FL/BPD: 76% FL/AC: 23% BREATHIN MOVEMENT: 2 TONE: 2 FLUID VOLUME: 2 BPP SCORE: 8 IMPRESSION: Single living IUP with an ultrasound age of 30 weeks 6 days. BPP SCORE: 8/8 Reviewed, Interpreted and Dictated by Tae Stacy III, MD Transcribed by Alessandra Lopes Authenticated and . [facility]
== END ==
PROVIDERS: PCP Nurse Practitioner; Visit Provider Nurse Practitioner Obstetrics & Gynecology
DX: O36.5990 Maternal care for other known or suspected poor fetal growth, unspecified trimester, not applicable or unspecified (principal)
CPT/HCPCS: 76816; 76819; 76820

== ENCOUNTER → 2023-04-08 12:33 | Outpatient (CLI) | payer OTHER, SELFPAY ==
--- NOTE | 2023-04-08 12:35 | US_ITS ---
PROCEDURE: US OB BIOPHYSICAL PROFILE CLINICAL INDICATION: IUGR, Non Reactive NST COMPARISON: FINDINGS: From her established due date she is 34weeks 3days. The following parameters are obtained: heart rate: 123bpm bpm. Amniotic fluid index: 8.84cm Qualitative AFV: 2 breathing movements: 2 Gross body movements: 2 Tone: 2 Biophysical profile score: 8 No obvious anomalies evident.Four chamber heart, three-vessel cord appear normal. Placenta: Anterior grade 2 IMPRESSION: 1. Viable fetus in the cephalic presentation with an anterior placenta grade 2. 2. Biophysical profile is 8/8. breathing movement seen. movement seen. 3. The fluid index is 8.84, normal. Dictated by: Charlie Gamez MD 04/10/2023 09:50 Charlie Gamez MD in OV 04/10/2023 09:50
== END ==
PROVIDERS: PCP Nurse Practitioner; Visit Provider Obstetrics & Gynecology
DX: O28.8 Other abnormal findings on antenatal screening of mother (principal); O36.5990 Maternal care for other known or suspected poor fetal growth, unspecified trimester, not applicable or unspecified
CPT/HCPCS: 76819

== ENCOUNTER → 2023-04-14 15:17 | Outpatient (CLI) | payer OTHER, SELFPAY ==
[2023-04-14 15:47] LABS: Basophils % 0.3 % (0.1-2.0); Eosinophils # 0.1 K/mm3 (0.0-0.4); Eosinophils % 0.4 % (0.1-12.0); Hemoglobin 12.8 g/dL (12.2-16.2); Lymphocytes # 2.8 K/mm3 (0.7-4.5); Lymphocytes % 24.9 % (10-50); Mean Corpuscular HGB Conc 32.7 g/dL (31.8-35.4); Mean Corpuscular Hemoglobin 29.3 pg (27.0-31.2); Mean Corpuscular Volume 89.8 fl (81-99); Mean Platelet Volume 8.8 fl (7.4-10.4); Monocytes # 0.7 K/mm3 (0.1-1.0); Monocytes % 6.6 % (1.7-9.3); Neutrophils # 7.5 K/mm3 (1.8-7.8); Neutrophils % 67.7 % (37.0-80.0); Platelet Count 209 K/mm3 (142-424); Red Blood Count 4.35 M/mm3 (4.20-5.40); Red Cell Distribution Width 13.5 % (11.5-17.5)
[2023-04-16 10:18] LABS: HIV Screen 4th Generation wRfx Non Reactive (Non Reactive); Rapid Plasma Reagin Ab Titer Non Reactive (NonRea<1:1)
[2023-04-26 10:38] LABS: Hepatitis B Surface Antigen Negative; Hepatitis C Antibody Non Reactive
== END ==
LOC: LAB 15:17
PROVIDERS: PCP Nurse Practitioner; Visit Provider Obstetrics & Gynecology
DX: Z34.93 Encounter for supervision of normal pregnancy, unspecified, third trimester (principal); Z3A.35 35 weeks gestation of pregnancy
CPT/HCPCS: 36415; 85025; 86593; 86703; 86762; 86850; 87340; 87380; G0432

== ENCOUNTER → 2023-04-21 23:35 | Outpatient (CLI) | payer OTHER, SELFPAY | PROVIDERS: PCP Nurse Practitioner; Visit Provider Nurse Practitioner Obstetrics & Gynecology | DX: Z34.93 Encounter for supervision of normal pregnancy, unspecified, third trimester (principal); Z3A.36 36 weeks gestation of pregnancy | CPT/HCPCS: 86403 ==

== ENCOUNTER → 2023-04-25 13:02 | Outpatient (CLI) | payer OTHER, SELFPAY ==
--- NOTE | 2023-04-25 13:03 | US_ITS ---
PROCEDURE: US OB BIOPHYSICAL PROFILE CLINICAL INDICATION: sga/ IGUR COMPARISON: FINDINGS: From her last menstrual period she is 36weeks 6days. The following parameters are obtained: Average ultrasound age is 34weeks 5days. Estimated due date by ultrasound is 06/01/2023. Estimated weight is 5lb 4.99oz. 6 percentile. heart rate: 128bpm bpm. BPD: 35weeks 3days OFD: 35weeks 3days HC: 35 weeks 0 days AC: 34 weeks 2 days FL: 34 weeks 1 day HC/AC: 1.03 Cephalic index: 0.8 FL/BPD: 0.76 FL/AC: 0.22 Amniotic fluid index: 7.92cm Qualitative AFV: 2 breathing movements: 2 Gross body movements: 2 Tone: 2 Biophysical profile score: 8 Doppler evaluation of the umbilical artery: SD ratio: 3.69 Resistive index: 0.73 No obvious anomalies evident.three-vessel cord appear normal. Diaphragm visualized, four-chamber view, bladder Placenta: Anterior, grade 2 IMPRESSION: 1. Fetus in the cephalic presentation with a anterior placenta grade 2. 2. The fluid is normal with an amniotic fluid index of 7.92 cm but looks subjectively low. 3. Fetus is 2 weeks behind in its growth with AC lagging by over 2 weeks, 6th percentile. 4. Limited anatomical scan reveals no abnormalities. 5. Biophysical profile 06/07 with good breathing movement seen. 6. Physician notified of the results. Dictated by: Charlie Gamez MD 04/25/2023 14:45 Charlie Gamez MD in OV 04/25/2023 14:45
== END ==
PROVIDERS: PCP Nurse Practitioner; Visit Provider Nurse Practitioner Obstetrics & Gynecology
DX: O36.5990 Maternal care for other known or suspected poor fetal growth, unspecified trimester, not applicable or unspecified (principal)
CPT/HCPCS: 76816; 76819; 76820

== ENCOUNTER 2023-04-27 05:28 | Inpatient (IN) | payer OTHER, SELFPAY ==
[2023-04-27] VITALS (11 sets, daily range): BP systolic 100–128; BP diastolic 56–73; PULSE 67–88; RESP 12–18; TEMP 36.3–37.1; O2SAT 96–100; BMI 26.9
[2023-04-27 06:16] LABS: Microscopic, Urine URINE MICROSCOPIC (MICROSCOPIC)
[2023-04-27 06:16] LABS: Coronavirus 19, PCR Not Detected (NotDetected); Influenza A, PCR Not Detected (NotDetected); Influenza B, PCR Not Detected (NotDetected)
[2023-04-27 06:18] LABS: Basophils % 0.2 % (0.1-2.0); Eosinophils # 0.1 K/mm3 (0.0-0.4); Eosinophils % 0.6 % (0.1-12.0); Hematocrit 37.3 % (37.0-47.0); Hemoglobin 12.4 g/dL (12.2-16.2); Lymphocytes # 3.7 K/mm3 (0.7-4.5); Lymphocytes % 25.1 % (10-50); Mean Corpuscular HGB Conc 33.2 g/dL (31.8-35.4); Mean Corpuscular Hemoglobin 29.2 pg (27.0-31.2); Mean Corpuscular Volume 87.9 fl (81-99); Mean Platelet Volume 8.7 fl (7.4-10.4); Monocytes # 0.8 K/mm3 (0.1-1.0); Monocytes % 5.8 % (1.7-9.3); Neutrophils % 68.4 % (37.0-80.0); Platelet Count 240 K/mm3 (142-424); Red Blood Count 4.24 M/mm3 (4.20-5.40); Red Cell Distribution Width 13.5 % (11.5-17.5); White Blood Count 14.6 K/mm3 (4.8-10.8)
[2023-04-27 06:19] LABS: Appearance,Urine CLEAR (Clear); Bilirubin,Urine Negative (Negative); Blood, Urine 1+ (Negative); Color,Urine YELLOW (Yellow); Glucose,Urine (UA) Negative (Negative); Ketones,Urine Negative (Negative); Leukocyte Esterase,Urine Negative (Negative); Nitrate,Urine Negative (Negative); Protein,Urine Negative (Negative); Urobilinogen,Urine 0.2 EU/dl (0.2)
[2023-04-27 06:31] LABS: Chloride 103 mmol/L (98-107); Potassium 3.7 mmoL/L (3.5-5.1); Sodium 137 mmol/L (136-145)
[2023-04-27 06:31] LABS: Barbiturates Screen,Urine Negative ng/ml (<200); Benzodiazepines Screen,Urine Negative ng/ml (<200)
[2023-04-27 06:32] LABS: Amphetamine/Metha Screen,Urine Negative ng/ml (<1000); Methadone Screen,Urine Negative ng/ml (<300)
[2023-04-27 06:33] LABS: Blood Urea Nitrogen 14 mg/dl (7-17)
[2023-04-27 06:33] LABS: Cannabinoid Screen,Urine Positive ng/ml (<50)
[2023-04-27 06:34] LABS: Cocaine Screen,Urine Negative ng/ml (<300); Opiate Screen,Urine Negative ng/ml (<300)
[2023-04-27 06:34] LABS: Anion Gap 12.7 mEq/L (5-15); Calcium 9.3 mg/dl (8.4-10.2); Carbon Dioxide 25 mmol/L (22.0-30.0); Creatinine Clearance Estimated 163 mL/min (50-200); Estimated Glomerular Filt Rate 123 ml/min (>60); GFR (African American) 149 ML/MIN (>60); Glucose 76 mg/dl (74-100)
[2023-04-27 06:35] LABS: Bacteria,Urine Trace /lpf; Phencyclidine Screen,Urine Negative ng/ml (<25); WBC,Urine Occasional #/hpf (0-3)
[2023-04-27 08:19] LABS: Cord Blood PH 7.35 (7.35-7.45)
--- NOTE | 2023-04-27 08:51 | P.PN_ITS ---
[facility] Disclaimer: The information contained in this section may have been updated after the patient was seen, as this information can be updated by other users. Medical History IUGR, EFW 6% AC <1% Suboxone maintenance treatment complicating , antepartum Surgical History History of delivery Social History Smoking Status: Current every day smoker tobacco type: cigarettes alcohol intake: never substance use type: former substance user, marijuana and methamphetamine current occupational status: unemployed Travel in the last 8 weeks: None [facility] Anesthesia Checklist Patient Identification Patient Identification: Verbal (Name & ) Structural Data Admitted From: Inpatient Planned Operative Procedure/s: csection Consent for Planned Operative Procedure(s) Verified: Yes Additional verifications Anesthesia Reactions: No Airway Assessment C-Spine Mobility Assessed: Yes TMJ Mobility Assessed: Yes Dentition: Good Dentition Neurological Assessment Level of Consciousness: Awake, Alert and Appropriate Anesthesia Plan Anesthesia Risk discussed: Yes Anesthesia Plan: Verified ASA Class: II Anesthesia Type: Spinal
--- NOTE | 2023-04-27 08:52 | EXP.ANES.I ---
[facility] Anesthesia Record Part I Anesthesia Record I Intake, IV Amount: 1,800 Estimated blood loss (mL): 600 Urine output (mL): 200 Blood Pressure: 103/56 SaO2: 100 Pulse Rate: 72 Respiratory Rate: 12 Temperature: 97.5 F Patient is:: Awake and Stable Stable to PACU at:: 08:50
--- NOTE | 2023-04-27 08:55 | EXP.OP.NOTE ---
Date of procedure: 04/27/23 Pre-op Diagnosis:: Term , small for gestational age, previous section, maternal Suboxone maintenance Post-op Diagnosis:: Term , small for gestational age, previous section, maternal Suboxone maintenance Procedure performed:: Repeat lower segment transverse section Surgeon:: Charlie Gamez MD Engineering Drawings Checker(s):: Dr. Clemons INFORMATION CLERK BROKERAGE:: Tobi Lentz Anesthesia: spinal Estimated blood loss (mL): 600 Clinical Note:: She is a 22-year-old 2 para 1 at 37 and 1 weeks gestational age. She is known to have a small for gestational age infant. As result of that she was offered repeat lower segment transverse section at 37 weeks. Operative findings:: She delivered a liveborn male child at 8:11 AM on the morning of April 26, 2023. Baby had Apgars of 9 at 1 minute and 9 at 5 minutes. Baby weighed 6 pounds 1 ounce. Ovaries and tubes appeared normal. Operative note:: She was taken to the operating room where spinal anesthesia was found be adequate. She was prepped and draped in normal sterile fashion in the supine position. A Arellano catheter was in the bladder. A Pfannenstiel skin incision was made with knife then carried through to the underlying layer of fascia with cautery. The fascia was opened in the midline with cautery and extended laterally using Koenig scissors. [place] clamps were applied to the superior aspect of the fascial incision which was tented up and the underlying rectus muscles dissected off using cautery. The [place] clamps were then applied to the inferior aspect of the fascial incision which in a similar fashion was tented up and the underlying rectus muscles dissected off using cautery. The rectus muscles were then in the midline, the peritoneum identified, and entered bluntly. An [place]ley retractor was then inserted into the abdominal cavity. Transverse incision was made through the uterine muscle above the bladder flap to the amnion. This incision was then extended superiorly and inferiorly using the fingers as traction. The amnion was entered sharply with knife. There was clear amniotic fluid. The infant's head was then delivered atraumatically. A loose nuchal cord was then reduced. This was followed by the anterior shoulder and the rest of the infant's body atraumatically. The oropharynx and nasopharynx were bulb suctioned. The infant was vigorous so we allowed the cord to continue to pulsate for approximately 1 minute. The cord was then doubly clamped and cut. The infant was then handed off to Dr. de leon who assigned Apgars of 9 at 1 minute and 9 at 5 minutes. We then obtained cord blood. Using gentle traction on the cord and fundal massage I was able to easily deliver the placenta intact. It had a normal three-vessel cord. The uterus was then cleared of clots and debris . I tied individual sutures at the uterine incision corners. The uterine incision was then closed using running 0 Vicryl suture in a locked fashion. A second layer of the same suture was used to imbricate the first layer. The bladder peritoneum was then closed using running 2-0 Vicryl suture in a locked fashion. After closure of the bladder peritoneum I inserted a large piece of Gelfoam along the incision.. The gutters and cul-de-sac were then cleared of clots and debris . Once again hemostasis was assured. The fascia was closed using running #1 Vicryl suture. The subcutaneous tissues were then irrigated with warm water followed by closure Serena's fascia using running 2-0 Monocryl suture. The skin was closed with running subcuticular 2-0 Monocryl strata fix suture. I then cleaned the skin with Hibiclens. Sterile dressings were applied. Anesthesia then performed a tap block under ultrasound guidance. She tolerated the procedure well and was taken to the recovery room in excellent condition. All sponges, instrument and needle counts were correct. Estimated blood loss was approximately 600 mL..
--- NOTE | 2023-04-27 09:01 | EXP.HP ---
[facility] Disclaimer: The information contained in this section may have been updated after the patient was seen, as this information can be updated by other users. Medical History IUGR, EFW 6% AC <1% Suboxone maintenance treatment complicating , antepartum Surgical History History of delivery Social History Smoking Status: Current every day smoker tobacco type: cigarettes alcohol intake: never substance use type: former substance user, marijuana and methamphetamine current occupational status: unemployed Travel in the last 8 weeks: None Meds Home Medications and Allergies Home Medications Medication Instructions Recorded Confirmed Type prenat.vits,nelson,fxe-[id number]-[id number] 1 tab PO DAILY 12/20/22 04/27/23 History buprenorphine 8 mg-naloxone 2 mg 2 tab sublingual DAILY HX DRUG 02/21/23 04/27/23 History sublingual tablet ABUSE New Prescriptions to Start Prescriptions: Allergies Allergy/AdvReac Type Severity Reaction Status Date / Time No Known Allergies Allergy Verified 04/26/23 14:39 Exam Data for Last 24 hours Vital signs and Labs for Last 24 Hours: Temp Pulse Resp BP Pulse Ox 97.5 F L 72 12 103/56 L 97 04/27/23 08:53 04/27/23 08:53 04/27/23 08:53 04/27/23 08:53 04/27/23 06:46 Laboratory Results - last 24 hr 04/27/23 05:38: Urine Color Yellow, Urine Appearance Clear, Urine pH 6.0, Ur Specific [place] 1.020, Urine Protein Negative, Urine Glucose (UA) Negative, Urine Ketones Negative, Urine Blood 1+, Urine Nitrate Negative, Urine Bilirubin Negative, Urine Urobilinogen 0.2, Ur Leukocyte Esterase Negative, Urine RBC 5-10, Urine WBC Occasional, Ur Squamous Epith Cells 3-5, Urine Bacteria Trace 04/27/23 05:38: Urine Opiates Screen Negative, Urine Methadone Screen Negative, Ur Barbituates Screen Negative, Ur Phencyclidine Scrn Negative, Ur Amphetamines Screen Negative, U Benzodiazepines Scrn Negative, Urine Cocaine Screen Negative, U Marijuana (THC) Screen Positive H 04/27/23 06:00: SARS-CoV-2 (PCR) Not detected, Influenza A Untype (PCR) Not detected, Influenza Type B (PCR) Not detected 04/27/23 06:05: WBC 14.6 H, RBC 4.24, Hgb 12.4, Hct 37.3, MCV 87.9, MCH 29.2, MCHC 33.2, RDW 13.5, Plt Count 240, MPV 8.7, Neut % (Auto) 68.4, Lymph % (Auto) 25.1, [place] % (Auto) 5.8, Eos % (Auto) 0.6, Baso % (Auto) 0.2, Neut # (Auto) 10.0 H, Lymph # (Auto) 3.7, [place] # (Auto) 0.8, Eos # (Auto) 0.1, Baso # (Auto) 0.0 04/27/23 06:05: Sodium 137, Potassium 3.7, Chloride 103, Carbon Dioxide 25, Anion Gap 12.7, BUN 14, Creatinine 0.60, Estimated Creat Clear 163, Estimated GFR 123, Est GFR ( Amer) 149, Glucose 76, Calcium 9.3 04/27/23 06:05: Blood Type O Positive, Antibody Screen Negative 04/27/23 08:17: Cord ABG pH 7.35 I & O for Last 24 hours: Intake & Output 04/24/23 04/25/23 04/26/23 04/27/23 11:59 11:59 11:59 11:59 Intake Total 1800 / 1800 Balance 1800 / 1800 Weight 157 lb
--- NOTE | 2023-04-27 09:02 | EXP.HP ---
History of Present Illness *Admission Date: 04/27/23 *Reason for visit:: IUGR , previous section, Suboxone maintenance *History of present illness: She is a 22-year-old 1 now para 2 at 37 weeks gestational age. She has had a previous section. She been followed by us as well as [facility] for a growth restricted baby. The baby was third centile. She is currently taking Suboxone 16 mg daily. She did receive steroids at 33 weeks. As a result of the small for gestational age infant it was suggested by [facility] that she have this baby at 37 weeks. [facility] Disclaimer: The information contained in this section may have been updated after the patient was seen, as this information can be updated by other users. Medical History IUGR, Suboxone maintenance treatment complicating , antepartum Surgical History (Updated 04/27/23 @ 09:04 by Charlie Gamez MD) History of delivery Social History Smoking Status: Current every day smoker tobacco type: cigarettes alcohol intake: never substance use type: former substance user, marijuana and methamphetamine current occupational status: unemployed Travel in the last 8 weeks: None Review of Systems Review of Systems Review of systems:: pertinent systems reviewed and negative unless documented below Meds Home Medications and Allergies Home Medications Medication Instructions Recorded Confirmed Type prenat.vits,nelson,[id number]-putfl 1 tab PO DAILY 12/20/22 04/27/23 History buprenorphine 8 mg-naloxone 2 mg 2 tab sublingual DAILY HX DRUG 02/21/23 04/27/23 History sublingual tablet ABUSE New Prescriptions to Start Prescriptions: Allergies Allergy/AdvReac Type Severity Reaction Status Date / Time No Known Allergies Allergy Verified 04/26/23 14:39 Exam Data for Last 24 hours Vital signs and Labs for Last 24 Hours: Temp Pulse Resp BP Pulse Ox 97.5 F L 72 12 103/56 L 97 04/27/23 08:53 04/27/23 08:53 04/27/23 08:53 04/27/23 08:53 04/27/23 06:46 Laboratory Results - last 24 hr 04/27/23 05:38: Urine Color Yellow, Urine Appearance Clear, Urine pH 6.0, Ur Specific [place] 1.020, Urine Protein Negative, Urine Glucose (UA) Negative, Urine Ketones Negative, Urine Blood 1+, Urine Nitrate Negative, Urine Bilirubin Negative, Urine Urobilinogen 0.2, Ur Leukocyte Esterase Negative, Urine RBC 5-10, Urine WBC Occasional, Ur Squamous Epith Cells 3-5, Urine Bacteria Trace 04/27/23 05:38: Urine Opiates Screen Negative, Urine Methadone Screen Negative, Ur Barbituates Screen Negative, Ur Phencyclidine Scrn Negative, Ur Amphetamines Screen Negative, U Benzodiazepines Scrn Negative, Urine Cocaine Screen Negative, U Marijuana (THC) Screen Positive H 04/27/23 06:00: SARS-CoV-2 (PCR) Not detected, Influenza A Untype (PCR) Not detected, Influenza Type B (PCR) Not detected 04/27/23 06:05: WBC 14.6 H, RBC 4.24, Hgb 12.4, Hct 37.3, MCV 87.9, MCH 29.2, MCHC 33.2, RDW 13.5, Plt Count 240, MPV 8.7, Neut % (Auto) 68.4, Lymph % (Auto) 25.1, [place] % (Auto) 5.8, Eos % (Auto) 0.6, Baso % (Auto) 0.2, Neut # (Auto) 10.0 H, Lymph # (Auto) 3.7, [place] # (Auto) 0.8, Eos # (Auto) 0.1, Baso # (Auto) 0.0 04/27/23 06:05: Sodium 137, Potassium 3.7, Chloride 103, Carbon Dioxide 25, Anion Gap 12.7, BUN 14, Creatinine 0.60, Estimated Creat Clear 163, Estimated GFR 123, Est GFR ( Amer) 149, Glucose 76, Calcium 9.3 04/27/23 06:05: Blood Type O Positive, Antibody Screen Negative 04/27/23 08:17: Cord ABG pH 7.35 I & O for Last 24 hours: Intake & Output 04/24/23 04/25/23 04/26/23 04/27/23 11:59 11:59 11:59 11:59 Intake Total 1800 / 1800 Balance 1800 / 1800 Weight 157 lb Constitutional Constitutional: no acute distress *Routine HEENT Exam Head: Present normocephalic Eye: Presen
--- NOTE | 2023-04-27 12:17 | SUR.OPER ---
0811- Time of of viable infant. pH of cord blood 7.35
[2023-04-27 15:42] LABS: Microscopic,Cath URINE MICROSCOPIC (MICROSCOPIC)
[2023-04-27 15:52] LABS: Appearance,Urine/Cath CLEAR (Clear); Bilirubin,Cath Negative (Negative); Blood, Urine/Cath TRACE-I (Negative); Color,Urine/Cath YELLOW (Yellow); Glucose,Urine/Cath (UA) Negative (Negative); Ketones,Urine/Cath Negative (Negative); Leukocyte Esterase,Cath Negative (Negative); Nitrate,Cath Negative (Negative); PH,Urine/Cath 6.5 (5.0-8.5); Protein,Urine/Cath Negative (Negative); Urobilinogen,Cath 0.2 EU/dl (0.2)
[2023-04-27 16:25] LABS: RBC,Urine/Cath Occasional # /hpf (0-3)
--- NOTE | 2023-04-28 | XR_ITS ---
PROCEDURE INFORMATION: Exam: XR Chest Exam date and time: 04/28/2023 12:46 AM Age: 22 years old Clinical indication: Pain; Dyspnea and wheezing; On breathing; Patient HX: Post , PT states HX of pneumonia with the of her first child. ; Additional info: Audible wheezing TECHNIQUE: Imaging protocol: Radiologic exam of the chest. Views: 2 views. COMPARISON: CR XR CHEST 2V 02/13/2020 10:39 PM FINDINGS: Lungs: No consolidation. Pleural spaces: No significant pleural effusion. No pneumothorax. Heart/Mediastinum: No cardiomegaly. Bones/joints: No displaced fracture. Soft tissues: Unremarkable. IMPRESSION: No definite acute cardiopulmonary disease.
[2023-04-28 00:05] VITALS: PULSE 86; PULSE 88
[2023-04-28 04:00] VITALS: RESP 17
[2023-04-28 04:15] VITALS: BP 136/68; PULSE 77; RESP 18; TEMP 37.2; O2SAT 96
[2023-04-28 07:37] LABS: Hematocrit 31.1 % (37.0-47.0); Hemoglobin 10.2 g/dL (12.2-16.2)
--- NOTE | 2023-04-28 08:46 | EXP.ACUTE.PN ---
Subjective *Date: 04/28/23 *Time: 08:46 Interval history: She is doing well this morning. Her pain is reasonably well controlled. She had some wheeziness overnight and received a breathing treatment. This morning her wheezing seems to be better. She has this ordered as needed. The patient will call if she has any more wheeziness. I told her she could have the breathing treatments 4 times a day. She denies any chest pain or calf tenderness. Medical Exam Vital signs and Labs for Last 24 Hours: Vital Signs Temp Pulse Pulse Resp BP BP Pulse Ox 04/28/23 04:15 98.9 F 77 18 136/68 96 04/28/23 04:00 17 04/28/23 00:05 88 04/28/23 00:05 86 04/27/23 23:48 98.8 F 82 18 125/72 96 04/27/23 22:24 17 04/27/23 21:13 18 04/27/23 20:30 98.6 F 73 18 128/67 100 04/27/23 16:20 98.1 F 78 16 127/64 98 04/27/23 09:20 72 18 103/73 L 100 04/27/23 09:10 67 18 113/58 L 100 04/27/23 09:00 67 18 100/57 L 100 04/27/23 08:50 97.4 F L 76 18 103/56 L 100 04/27/23 08:53 97.5 F L 72 12 103/56 L Laboratory Results - last 24 hr 04/27/23 07:59: Urine Color Yellow, Urine Appearance Clear, Urine pH 6.5, Ur Specific [place] 1.010, Urine Protein Negative, Urine Glucose (UA) Negative, Urine Ketones Negative, Urine Blood Trace-i, Urine Nitrate Negative, Urine Bilirubin Negative, Urine Urobilinogen 0.2, Ur Leukocyte Esterase Negative, Urine RBC Occasional, Urine WBC None, Ur Squamous Epith Cells None, Urine Bacteria None 04/28/23 07:21: Hgb 10.2 L, Hct 31.1 L I & O for Labs for Last 24 Hours: Intake & Output 04/25/23 04/26/23 04/27/23 04/28/23 11:59 11:59 11:59 11:59 Intake Total 1800 / 1800 Balance 1800 / 1800 Weight 157 lb Head: Present atraumatic ENT: Present normal exam Neck: Present normal inspection Respiratory: Present normal respiratory effort; Absent accessory muscle use GI: Present soft and tenderness; Absent distention Comments:: She is cracking still operator over her incision. Otherwise she is doing well. She does not want to take any narcotics because she takes Suboxone. Assessment and Plan *Assessment and plan (1) History of delivery: Status: Acute Category: Surgical Code(s): Z98.891 - History of uterine scar from previous surgery (2) Tobacco smoking affecting : Status: Acute Qualifiers: Trimester: unspecified trimester Qualified Code(s): O99.330 - Smoking (tobacco) complicating , unspecified trimester Category: Medical Code(s): O99.330 - Smoking (tobacco) complicating , unspecified trimester (3) IUGR, : Problem Comment: EFW 6% AC <1% Status: Acute Category: Medical Code(s): O36.5990 - Maternal care for other known or suspected poor growth, unspecified trimester, not applicable or unspecified (4) Suboxone maintenance treatment complicating , antepartum: Status: Acute Category: Medical Code(s): O99.320 - Drug use complicating , unspecified trimester; F11.20 - Opioid dependence, uncomplicated (5) Asthma attack: Status: Acute Qualifiers: Asthma severity: moderate Asthma persistence: unspecified Qualified Code(s): J45.901 - Unspecified asthma with (acute) exacerbation Category: Medical Code(s): J45.901 - Unspecified asthma with (acute) exacerbation Plan She continues to do well. She did have some asthma overnight with wheeziness. We will continue with breathing treatments as necessary. Her baby has some symptoms of withdrawal. I suspect that it will be 3 or 4 days before the baby is discharged home. Patient should be able to go home in 48 hours.
--- NOTE | 2023-04-28 09:57 | SW/DCPLANNER ---
Addendum entered by Shayna Stonewall 04/28/23 14:36: Per Central Intake this case does NOT meet criteria for investigation. Addendum entered by [facility] 04/28/23 11:11: This case has been reported to Central Intake: ID# [id number]. Original Note: I received a consult on this patient regarding: suboxone and THC use during . Patient delivered male (Bozena Blas) on 04/27/2023. 's father (James Blas 08/21/1996) was not present at the time of my visit but patient states that he is involved in care. Patient, James, infant and other child (James Blas 04/22/22) will reside at [address] [place] [address] in [place] [address]. Patient's contact number is [phone]. Patient stated that she has had past Social Service involvement with first child due to not gaining weight. Case is now closed and infant was not removed from mother's custody. Patient is established with [facility] and is not interested in HANDS at this time. Patient stated that she has the following items at home: crib, carseat, clothing, diapers and is bottle/breast feeding. PEDS MD is Dr Westbrook. Patient stated that she will have transportation to all follow up appointments. Patient is expected to discharge home tomorrow 04/29/23. OB Nursing staff (Dolores) stated that patient is having little interaction with . Patient tested positive for BUP and THC on the following dates: 12/29/22, 01/17/23, 02/21/23 and THC on admission 04/27/23. urine drug screen is negative on admission 04/27/23. Patient is enrolled in Suboxone Clinic in [facility]). Per patient she does goes to clinic every two weeks and last visit was 04/26/23. Patient stated that she is drug tested at [facility] and is allowed to use THC in clinic. Patient stated that she uses THC due to medical issues and the being small during . Patient does admit to a history of meth use (over one year ago). This case will be reported to Central Intake. I will follow up with ID# once reported.
[2023-04-29 08:30] VITALS: BP 121/59; PULSE 75; RESP 16; TEMP 36.6; O2SAT 99
--- NOTE | 2023-04-29 08:58 | EXP.DC.SUM ---
General Admission date:: 04/27/23 Discharge date: 04/29/23 HPI HPI HPI: POD # 2 s/p RLTCS She is resting comfortably in bed this morning. Pain controlled. Light lochia. She is formula feeding. Voiding without difficulty and passing flatus. Tolerating regular diet. Ambulating well ad cathie. Denies fever/chills, chest pain and shortness of breath. Denies headaches and vision changes. No swelling. Hospital Course Hospital Course Hospital Course: She is a 22-year-old 2 para 1 at 37 weeks gestational age. She has had a previous section. She been followed by us as well as [facility] for a growth restricted baby. The baby was third centile. She is currently taking Suboxone 16 mg daily. She did receive steroids at 33 weeks. As a result of the small for gestational age it was suggested by [facility] that she have this baby at 37 weeks. She underwent repeat . She delivered a live male baby, 6 lb 1 oz. APGARs 9, 9. EBL 600 mL. She did well postoperatively. Pain controlled. Light lochia. Formula feeding. She was voiding without difficulty and passing flatus. Tolerating regular diet and ambulating well ad cathie. Vital signs stable, afebrile. Heart regular rate and rhythm. Lungs clear to auscultation. Abdomen soft, nontender. No lower extremity swelling. Normal hospital course. She was discharged home on POD # 2. Exam Data for Last 24 hours Vital signs and Labs for Last 24 Hours: Temp Pulse Resp BP Pulse Ox 98.9 F 77 18 136/68 96 04/28/23 04:15 04/28/23 04:15 04/28/23 04:15 04/28/23 04:15 04/28/23 04:15 I & O for Last 24 hours: Intake & Output 04/26/23 04/27/23 04/28/23 04/29/23 23:59 23:59 23:59 23:59 Intake Total 1800 / 1800 Balance 1800 / 1800 Weight 157 lb Constitutional Constitutional: no acute distress *Routine HEENT Exam Head: Present normocephalic and atraumatic Eye: Absent conjunctivae pink ENT: Present mucous membranes moist *Routine Neck Exam Neck: Present full ROM *Routine Respiratory Exam Respiratory: Present CTA bilaterally and normal respiratory effort *Routine Cardiovascular Exam Cardiovascular: Present RRR *Routine Abdominal Exam Abdominal: Present soft and normoactive bowel sounds; Absent tenderness or distended Comments: Uterine fundus firm and below umbilicus, pfannenstiel incision clean/dry/intact *Routine Rectal Exam Patient deferred: visual exam *Routine Exam Patient deferred: external exam *Routine Extremities Exam Extremities: Present full ROM; Absent edema or calf tenderness *Routine Neurological Exam Neurological: Present alert, oriented X3 and moving all extremities Routine Psychiatric Exam Psychiatric: Present normal affect and cooperative DS: Diagnosis Discharge Diagnosis (1) History of delivery: Status: Acute Code(s): Z98.891 - History of uterine scar from previous surgery (2) Tobacco smoking affecting : Status: Acute Code(s): O99.330 - Smoking (tobacco) complicating , unspecified trimester Qualifiers: Trimester: unspecified trimester Qualified Code(s): O99.330 - Smoking (tobacco) complicating , unspecified trimester (3) IUGR, : Status: Acute Code(s): O36.5990 - Maternal care for other known or suspected poor growth, unspecified trimester, not applicable or unspecified Problem details: EFW 6% AC <1% (4) Suboxone maintenance treatment complicating , antepartum: Status: Acute Code(s): O99.320 - Drug use complicating , unspecified trimester; F11.20 - Opioid dependence, uncomplicated (5) Asthma attack: Status: Acute Code(s): J45.901 - Unspecified asthma with (acute) exacerbation Qualifiers: Asthma persistence: unspecified Asthma severity: moderate Qualified Code(s): J45.901 - Unspecified asthma with (acute) exacerbation Meds
[2023-04-29 16:00] VITALS: BP 131/69; PULSE 80; RESP 16; TEMP 36.5; O2SAT 100
[2023-05-02 00:05] LABS: Buprenorphine, Urine Positive (Cutoff=10)
--- NOTE | 2023-05-02 08:02 | P.PNANES_ITS ---
[facility] Anesthesia Record Part II Anesthesia Record Part II Discharge Time: 09:20 Destination: Obstetric Gynecology Dept PACU nurse assessment reviewed?: Yes Patient Condition:: Good Anesthesia Complications:: None Swallowing reflex intact?: Yes Cyanosis?: No Blood Pressure: 103/73 Pulse Rate: 72 Temperature: 97.4 F Mental Status: Alert & Oriented Pain level:: 0 Nausea and/or vomitting:: None Intake, IV Amount: 0
[2023-05-02 08:03] VITALS: BP 103/73; PULSE 72; TEMP 36.3
== END 2023-04-29 19:51 | disposition home or self-care (01) | DRG 787 ==
PROVIDERS: Admitting Provider Nurse Practitioner Obstetrics & Gynecology; PCP Nurse Practitioner; Visit Provider Nurse Practitioner Obstetrics & Gynecology
PROC: 10D00Z1 Extraction of Products of Conception, Low, Open Approach (ICD-10-PCS; CPT 59514; principal; 2023-04-27 07:30)
DX: O36.5930 Maternal care for other known or suspected poor fetal growth, third trimester, not applicable or unspecified (principal); F11.20 Opioid dependence, uncomplicated; O99.324 Drug use complicating childbirth; J45.901 Unspecified asthma with (acute) exacerbation; O34.211 Maternal care for low transverse scar from previous cesarean delivery; Z3A.37 37 weeks gestation of pregnancy; Z37.0 Single live birth; O99.334 Smoking (tobacco) complicating childbirth; O90.89 Other complications of the puerperium, not elsewhere classified; Z23 Encounter for immunization
CPT/HCPCS: 59514; 36415; 59025; 71046; 76816; 76819; 76820; 80048; 80305; 80307; 81001; 82800; 85014; 85018; 85025; 86850; 87636; 88307; 94640; 94761; C9803; G0283; J0574; U0003; U0005

== ENCOUNTER 2023-12-08 18:12 | Emergency (ER) | payer OTHER, SELFPAY ==
[2023-12-08 19:00] VITALS: BP 101/73; PULSE 76; RESP 18; TEMP 36.8; O2SAT 99; BMI 22.6
[2023-12-08 19:29] LABS: Apearance,Urine Cloudy (Clear); Bilirubin,Urine Negative (Negative); Blood, Urine 3+ (Negative); Color,Urine Dark Yellow (Yellow); Glucose,Urine (UA) Negative (Negative); Ketones,Urine TRACE (Negative); PH,Urine 5.5 (5.0-8.5); Protein,Urine 2+ (Negative); Specific Gravity, Urine 1.015 (1.005-1.030); UTC Leukocyte Esterase,Urine 3+ (Negative); UTC Nitrate,Urine Positive (Negative); Urobilinogen,Urine 0.2 EU/dl (0.2)
[2023-12-08 19:29] LABS: UTC Pregnancy Test, Urine Negative (Negative)
--- NOTE | 2023-12-08 19:30 | EXP.UTC ---
Discharge Plan Disposition Patient Disposition: Still a Patient Prescriptions Prescriptions: No Action buprenorphine-naloxone 8-2 mg tablet, sublingual 2 tab sublingual DAILY ibuprofen 800 mg tablet 800 mg PO Q8H PRN (Reason: pain) Qty: 20 0RF acetaminophen 500 mg tablet 1,000 mg PO Q6H PRN (Reason: fever or pain) Qty: 20 0RF Referrals Follow up/Referrals: Suha Last APRN [Primary Care Provider] - See instructions Discharge ED Provider: Sarahi Garcia [facility] [place] HPI General Stated complaint: Left side abd pain Mode of Arrival: Ambulatory Source of Information: Patient Limitations: No Limitations Time Seen by Provider: 12/08/23 19:30 Description of Symptoms (Recalled from Triage Doc. by RN): Pt is having left side flank pain, and ever. HEENT Symptoms (Recalled from RN notes): No Resp Symptoms (Recalled from RN notes): No Skin Symptoms (Recalled from RN notes): No MS Symptoms (Recalled from RN notes): No Functional Status (Recalled from RN notes): n/a History of Present Illness Provider Complaint: Patient states that she started having pain in her left flank area and left side States that today that pain has continued and she has had fever, chills and vomited earlier states that when she was about 2 yrs ago her OBGYN found that she had a kidney stone and they wanted to remove it but she wouldnt have removed due to risk of premature labor and she has never went back to be checked Related Data Home Medications Medication Instructions Recorded Confirmed buprenorphine 8 mg-naloxone 2 mg 2 tab sublingual DAILY HX DRUG 02/21/23 12/08/23 sublingual tablet ABUSE Previous Rx's Medication Instructions Recorded acetaminophen 500 mg tablet 1,000 mg PO Q6H PRN fever or pain 04/29/23 #20 tabs ibuprofen 800 mg tablet 800 mg PO Q8H PRN pain #20 tabs 04/29/23 Allergies Allergy/AdvReac Type Severity Reaction Status Date / Time No Known Allergies Allergy Verified 12/08/23 19:17 Worker's Comp Is this a Worker's Comp case?: No [facility] Disclaimer: The information contained in this section may have been updated after the patient was seen, as this information can be updated by other users. Medical History Asthma attack Atypical chest pain IUGR, Pleurisy Suboxone maintenance treatment complicating , antepartum Surgical History History of delivery Family History Other No significant family history Social History Smoking Status: Current every day smoker tobacco type: cigarettes alcohol intake: never substance use type: former substance user, marijuana and methamphetamine current occupational status: unemployed Travel in the last 8 weeks: None ROS Obtained: Yes All systems reviewed & no additional complaints except as documented and Yes Systems reviewed as appropriate & no additional complaints except as documented Constitutional Constitutional: Reports system reviewed and no additional complaints, except as documented, Reports as per HPI, Reports chills and Reports fever(s) (earlier at home) ENT Ears, Nose, Mouth, and Throat: Reports system reviewed and no additional complaints, except as documented and Reports as per HPI Cardiovascular Cardiovascular: Reports system reviewed and no additional complaints, except as documented and Reports as per HPI Respiratory Respiratory: Reports system reviewed and no additional complaints, except as documented and Reports as per HPI Gastrointestinal Gastrointestingal: Reports system reviewed and no additional complaints, except as documented, as per HPI, nausea and vomiting Genitourinary Female Genitourinary: Reports system reviewed and no additional complaints, except as documented, Reports as per HPI, Reports dysuria and Reports flank pain Physical Exam General General appearance: alert and in no apparent distress Respiratory Respiratory exam: Present normal lung sounds bilaterally; Absent respiratory distress or wheezes Cardiovascular Cardiovascular exam: Present regular rate, normal rhythm and normal heart sounds Neurological Exam Neurological exam: Present alert, oriented X3 and normal gait Medical Decision Making Tao Inquiry Pt receiving controlled substance: No Tao was queried for this patient: No Vital Signs: 12/08/23 19:00 Temperature 98.3 F Temperature Source Oral Pulse Rate [Right Radial] 76 Respiratory Rate 18 Blood Pressure [Right Arm] 101/73 L Blood Pressure Mean [Right Arm] 82 Blood Pressure Source [Right Arm] Automatic Cuff Blood Pressure Position [Right Arm] Sitting 02 Sat by Pulse Oximetry 99 Oxygen Delivery Method Room Air Lab Data Lab results reviewed: Yes I reviewed the patient's lab results. Lab Results 12/08/23 19:02: Urine Color Dark yellow, Urine Appearance Cloudy, Urine pH 5.5, Ur Specific [place] 1.015, Urine Protein 2+, Urine Glucose (UA) Negative, Urine Ketones Trace, Urine Blood 3+, Urine Nitrate Positive A, Urine Bilirubin Negative, Urine Urobilinogen 0.2, Ur Leukocyte Esterase 3+ A 12/08/23 19:28: [facility] Negative Medical Decision Narrative: Due to patient complaints of left flank pain with fever, chills, and body aches earlier and past hx discussed with patient and will transfer to the ED for further work up and evaluation and she agreed Called ED and patient was moved to room 10
[2023-12-08 19:41] VITALS: BP 112/68; PULSE 91; RESP 16; TEMP 36.9; O2SAT 98; BMI 22.6
--- NOTE | 2023-12-08 19:56 | CT_ITS ---
PROCEDURE INFORMATION: Exam: CT Abdomen And Pelvis Without Contrast Exam date and time: 12/08/2023 8:09 PM Age: 23 years old Clinical indication: Abdominal pain; Flank; Left; Additional info: Left flank pain, h/o stone TECHNIQUE: Imaging protocol: Computed tomography of the abdomen and pelvis without contrast. Radiation optimization: All CT scans at this facility use at least one of these dose optimization techniques: automated exposure control; mA and/or kV adjustment per patient size (includes targeted exams where dose is matched to clinical indication); or iterative reconstruction. COMPARISON: CT ABDOMEN PELVIS W CON 01/14/2021 9:23 PM FINDINGS: Liver: Normal. No mass. Gallbladder and bile ducts: Normal. No calcified stones. No ductal dilation. Pancreas: Normal. No ductal dilation. Spleen: Normal. No splenomegaly. Adrenal glands: Normal. No mass. Kidneys and ureters: No calcific densities identified along the course of the left ureter. No calcific densities involving the left or right kidney. Stomach and bowel: Unremarkable. No obstruction. No mucosal thickening. Appendix: No evidence of appendicitis. Intraperitoneal space: Unremarkable. No free air. No significant fluid collection. Vasculature: Unremarkable. No abdominal aortic aneurysm. Lymph nodes: Unremarkable. No enlarged lymph nodes. Urinary bladder: Unremarkable as visualized. Reproductive: Unremarkable as visualized. Bones/joints: Unremarkable. No acute fracture. Soft tissues: Normal. IMPRESSION: No acute findings.
--- NOTE | 2023-12-08 19:58 | ED_ITS ---
Discharge Plan Disposition Patient Disposition: Still a Patient Prescriptions Prescriptions: New cefdinir 300 mg capsule 300 mg PO BID 10 Days Qty: 20 0RF No Action buprenorphine-naloxone 8-2 mg tablet, sublingual 2 tab sublingual DAILY ibuprofen 800 mg tablet 800 mg PO Q8H PRN (Reason: pain) Qty: 20 0RF acetaminophen 500 mg tablet 1,000 mg PO Q6H PRN (Reason: fever or pain) Qty: 20 0RF Referrals Follow up/Referrals: Suha Last APRN [Primary Care Provider] - See instructions Clinical Impressions Clinical Impression: Pyelonephritis Instructions Patient Instructions: DI for Acute Abdominal Pain Discharge ED Provider: Sarahi Garcia General Adult HPI General Chief complaint: Abdominal Pain Stated complaint: Left side abd pain Time Seen by Provider: 12/08/23 19:30 Mode of Arrival: Ambulatory Source of Information: Patient Limitations: No Limitations Description of Symptoms (Recalled from ER Triage Doc. by RN): pt was being seen in [facility] for urinary symptoms sent to ER for further workup, pt reports left flank pain and fever since yesterday. few episodes of vomiting History of Present Illness HPI narrative: Patient is a 23-year-old female presenting today with left flank pain had an abnormal urinalysis at the [facility] and sent over to the emergency department for further evaluation and treatment. She has a history of a stone which she states was the size of a marble never had it surgically removed believes it was on the left side. She has a history of hydronephrosis from imaging in the past bilaterally. Symptoms been going on for 24 hours open left flank pain fevers dysuria urgency and frequency. Related Data Home Medications Medication Instructions Recorded Confirmed buprenorphine 8 mg-naloxone 2 mg 2 tab sublingual DAILY HX DRUG 02/21/23 12/08/23 sublingual tablet ABUSE Previous Rx's Medication Instructions Recorded acetaminophen 500 mg tablet 1,000 mg PO Q6H PRN fever or pain 04/29/23 #20 tabs ibuprofen 800 mg tablet 800 mg PO Q8H PRN pain #20 tabs 04/29/23 cefdinir 300 mg capsule 300 mg PO BID 10 days #20 caps 12/08/23 Allergies Allergy/AdvReac Type Severity Reaction Status Date / Time No Known Allergies Allergy Verified 12/08/23 19:17 [facility] Disclaimer: The information contained in this section may have been updated after the patient was seen, as this information can be updated by other users. Medical History (Updated 12/08/23 @ 21:02 by Sarahi Garcia MD) Asthma attack Atypical chest pain IUGR, Pleurisy Suboxone maintenance treatment complicating , antepartum Surgical History History of delivery Family History Other No significant family history Social History Smoking Status: Current every day smoker tobacco type: cigarettes alcohol intake: never substance use type: former substance user, marijuana and methamphetamine current occupational status: unemployed Travel in the last 8 weeks: None ROS Obtained: Yes All systems reviewed & no additional complaints except as documented Physical Exam General General appearance: alert and in no apparent distress Respiratory Respiratory exam: Present normal lung sounds bilaterally Cardiovascular Cardiovascular exam: Present regular rate Abdominal Exam Abdominal exam: Present soft and distention; Absent tenderness Back Exam Back exam: Absent CVA tenderness (R) or CVA tenderness (L) Neurological Exam Neurological exam: Present alert Medical Decision Making Tao Inquiry Pt receiving controlled substance: No Vital Signs: 12/08/23 19:00 12/08/23 19:41 Temperature 98.3 F 98.4 F Temperature Source Oral Oral Pulse Rate [Right Radial] 76 91 H Respiratory Rate 18 16 Blood Pressure [Right Arm] 101/73 L 112/68 Blood Pressure Mean [Right Arm] 82 82 Blood Pressure Source [Right Arm] Automatic Cuff Blood Pressure Position [Right Arm] Sitting 02 Sat by Pulse Oximetry 99 98 Oxygen Delivery Method Room Air Room Air Lab Data Lab results reviewed: Yes I reviewed the patient's lab results. Lab Results 12/08/23 19:02: Urine Color Dark yellow, Urine Appearance Cloudy, Urine pH 5.5, Ur Specific [place] 1.015, Urine Protein 2+, Urine Glucose (UA) Negative, Urine Ketones Trace, Urine Blood 3+, Urine Nitrate Positive A, Urine Bilirubin Negative, Urine Urobilinogen 0.2, Ur Leukocyte Esterase 3+ A 12/08/23 19:28: [facility] Negative 12/08/23 19:50: WBC 24.2 H*, RBC 4.80, Hgb 14.2, Hct 41.5, MCV 86.5, MCH 29.5, MCHC 34.1, RDW 13.8, Plt Count 198, MPV 8.4, Neut % (Auto) 83.9 H, Lymph % (Auto) 8.7 L, [place] % (Auto) 6.8, Eos % (Auto) 0.4, Baso % (Auto) 0.2, Neut # (Auto) 20.3 H, Lymph # (Auto) 2.1, [place] # (Auto) 1.6 H, Eos # (Auto) 0.1, Baso # (Auto) 0.1, Total Counted 100, Neutrophils % (Manual) 84 H, Lymphocytes % (Manual) 11, Monocytes % (Manual) 5, Platelet Estimate Normal, Hypochromasia 2+, Anisocytosis 1+, Sodium 138, Potassium 3.5, Chloride 104, Carbon Dioxide 27, Anion Gap 10.5, BUN 10, Creatinine 0.80, Estimated Creat Clear 102, Estimated GFR 87, Est GFR ( Amer) 106, Glucose 115 H, Calcium 9.2, Total Bilirubin 0.9, AST 24, ALT 23, Alkaline Phosphatase 67, Total Protein 8.2 D, Albumin 4.6, Globulin 3.6 H, Albumin/Globulin Ratio 1.3 12/08/23 19:50 12/08/23 19:50 Orders (Tests/Meds): ED MEDICATIONS Discontinued Medications Generic Name Dose Route Start Last Admin Trade Name Freq PRN Reason Stop Dose Admin Lactated Ringer's 1,000 mls @ 999 mls/hr 12/08/23 20:00 12/08/23 20:04 Lactated Ringer's 1000 Ml Bag IV 12/08/23 21:00 999 mls/hr .Q1H1M MITCHEL Administration Ceftriaxone Sodium 1 gm/ 50 mls @ 100 mls/hr 12/08/23 20:00 12/08/23 20:41 Sodium Chloride IV 12/08/23 20:29 100 mls/hr ONCE ONE Administration Ketorolac Tromethamine 15 mg 12/08/23 19:56 12/08/23 20:03 Ketorolac 30mg/Ml Vial IV 12/08/23 19:57 15 mg ONCE ONE Administration ORDERS Category Date Time Status CT abdomen pelvis wo con Stat Cat Scan 12/08/23 19:56 Completed POCUS Point of Care (ER Only) Stat Exams 12/08/23 19:46 Taken CBC w/Auto Diff [Complete Blood Count Auto Diff] Stat Lab 12/08/23 19:50 Completed CMP [Comprehensive Metabolic Panel] Stat Lab 12/08/23 19:50 Completed Medical Decision Narrative: Patient is a 23-year-old female present today with left flank pain left CVA t enderness. She has a urinalysis which is positive for urinary tract infection at a minimum she has pyelonephritis. Bedside ultrasound demonstrates some mild hydronephrosis bilaterally. Will get a CT scan for further evaluation and treatment. IV fluids Toradol Rocephin have been initiated will reassess. Assessment 9:04 PM patient feeling much better CT scan performed to person interpreted also with radiology read which shows no hydronephrosis no kidney stones. Patient's symptoms are consistent with pyelonephritis. She does have a significant leukocytosis. She is very well-appearing on discharge not tachycardic not febrile return precautions discussed. No evidence of sepsis at the moment. Return precautions emphasized and she is aware that this could significantly worsen and she will take her antibiotics as prescribed dose of Rocephin was given in the emergency department and she will be compliant with her medications and get her antibiotics filled in the morning. Procedures Miscellaneous Procedure Procedure Performed: Limited renal ultrasound Indication: A focused ultrasound of the kidneys was performed to evaluate for hydronephrosis and nephrolithiasis. The ultrasound was performed with the following indications, as noted in the H&P: Flank pain Identified structures: Both kidneys Findings: Possible mild hydronephrosis Impression: Possible mild hydronephrosis Images were saved to permanent archive The study was technically adequate CPT: 48307-85 This study was performed by me, and I personally interpreted all images/videos. Based on my clinical judgement, these images were adequate and did necessitate further imaging. Critical Care Critical Care Time Critical Care Time: No
[2023-12-08] MEDS: KETOROLAC 30MG/ML VIAL 15 MG IV (20:03)
[2023-12-08] MEDS: LACTATED RINGERS 1000ML 1,000 ML 999 ML IV (20:04)
[2023-12-08 20:06] LABS: Basophils # 0.1 K/mm3 (0-0.2); Basophils % 0.2 % (0.1-2.0); Eosinophils # 0.1 K/mm3 (0.0-0.4); Eosinophils % 0.4 % (0.1-12.0); Hematocrit 41.5 % (37.0-47.0); Hemoglobin 14.2 g/dL (12.2-16.2); Lymphocytes # 2.1 K/mm3 (0.7-4.5); Lymphocytes % 8.7 % (10-50); Mean Corpuscular HGB Conc 34.1 g/dL (31.8-35.4); Mean Corpuscular Hemoglobin 29.5 pg (27.0-31.2); Mean Corpuscular Volume 86.5 fl (81-99); Mean Platelet Volume 8.4 fl (7.4-10.4); Monocytes # 1.6 K/mm3 (0.1-1.0); Monocytes % 6.8 % (1.7-9.3); Neutrophils # 20.3 K/mm3 (1.8-7.8); Neutrophils % 83.9 % (37.0-80.0); Platelet Count 198 K/mm3 (142-424); Red Cell Distribution Width 13.8 % (11.5-17.5); White Blood Count 24.2 K/mm3 (4.8-10.8)
[2023-12-08 20:07] LABS: MANUAL DIFFERENTIAL MANUAL DIFFERENTIAL (MANUAL DIFF)
[2023-12-08 20:11] LABS: Alanine Aminotransferase 23 U/L (12-78); Albumin Level 4.6 g/dl (3.5-5.0); Albumin/Globulin Ratio 1.3 (1.1-1.8); Alkaline Phosphatase 67 U/L (38-126); Anion Gap 10.5 mEq/L (5-15); Aspartate Amino Transferase 24 U/L (14-36); Bilirubin,Total 0.9 mg/dl (0.2-1.3); Blood Urea Nitrogen 10 mg/dl (7-17); Calcium 9.2 mg/dl (8.4-10.2); Carbon Dioxide 27 mmol/L (22.0-30.0); Chloride 104 mmol/L (98-107); Creatinine Clearance Estimated 102 mL/min (50-200); Estimated Glomerular Filt Rate 87 ml/min (>60); GFR (African American) 106 ML/MIN (>60); Globulin 3.6 g/dL (1.3-3.2); Glucose 115 mg/dl (74-100); Potassium 3.5 mmoL/L (3.5-5.1); Sodium 138 mmol/L (136-145); Total Protein,Serum 8.2 g/dl (6.3-8.2)
[2023-12-08 20:33] LABS: Lymphocytes % 11 % (10-50); Monocytes % 5 % (2-9); Neutrophils % 84 % (42-76); Total Cells Counted 100
[2023-12-08 20:34] LABS: Anisocytosis 1+; Hypochromasia 2+; Platelet Estimate Normal
[2023-12-08] MEDS: CEFTRIAXONE SODIUM 1 GM in 0.9 % SODIUM CHLORIDE 50 ML IV (20:41)
[2023-12-08 21:12] VITALS: BP 121/75; PULSE 73; RESP 19; TEMP 36.8; O2SAT 98
== END 2023-12-08 21:13 | disposition still patient (30) ==
LOC: UTC 18:17 → ER 19:39
PROVIDERS: Nurse Practitioner; Emergency Provider Student in an Organized Health Care Education/Training Program; PCP Nurse Practitioner
DX: N12 Tubulo-interstitial nephritis, not specified as acute or chronic (principal); R10.9 Unspecified abdominal pain; R11.10 Vomiting, unspecified; R50.9 Fever, unspecified; D72.829 Elevated white blood cell count, unspecified; F17.210 Nicotine dependence, cigarettes, uncomplicated
CPT/HCPCS: 74176; 80053; 81003; 81025; 85007; 85025; 96361; 96365; 96375; 99285; J0696

== ENCOUNTER 2023-12-26 16:50 | Outpatient (CLI) | payer OTHER, SELFPAY | END 2023-12-26 23:59 | LOC: LAB 16:51 | PROVIDERS: PCP Nurse Practitioner; Visit Provider Nurse Practitioner Obstetrics & Gynecology | DX: N76.0 Acute vaginitis (principal) ==

== ENCOUNTER 2023-12-27 16:07 | Outpatient (CLI) | payer OTHER, SELFPAY ==
[2023-12-28 13:12] LABS: Rapid Plasma Reagin Ab Titer Non Reactive titer (NonRea<1:1)
[2023-12-30 10:24] LABS: HIV Screen 4th Generation wRfx Non Reactive
[2023-12-30 10:25] LABS: Hepatitis C Antibody Non Reactive
[2023-12-30 10:26] LABS: HSV 1 IgG, Type Spec <0.91
[2023-12-30 10:28] LABS: HSV 2 IgG, Type Spec <0.91
== END 2023-12-27 23:59 ==
LOC: LAB 16:07
PROVIDERS: PCP Nurse Practitioner; Visit Provider Nurse Practitioner Obstetrics & Gynecology
DX: Z11.3 Encounter for screening for infections with a predominantly sexual mode of transmission (principal); Z11.4 Encounter for screening for human immunodeficiency virus [HIV]; N76.0 Acute vaginitis
CPT/HCPCS: 36415; 86593; 86695; 86703; 86790; 87380; G0432

== ENCOUNTER 2024-02-22 15:43 | Emergency (ER) | payer OTHER, SELFPAY ==
[2024-02-22 15:44] VITALS: BP 116/59; PULSE 83; RESP 18; TEMP 36.9; O2SAT 100; BMI 24.0
--- NOTE | 2024-02-22 15:54 | US_ITS ---
PROCEDURE INFORMATION: Exam: US , Transvaginal Exam date and time: 02/22/2024 4:15 PM Age: 23 years old Clinical indication: Other: Pelvic pain; Gestational age or lmp: Unknown; Additional info: Concern for miscarriage TECHNIQUE: Imaging protocol: Real-time transvaginal obstetrical ultrasound of the maternal pelvis with image documentation. Transvaginal imaging was used for better evaluation of the fetus, adnexa, and/or cervix. COMPARISON: US OB BIOPHYSICAL PROFILE 04/25/2023 1:04 PM FINDINGS: Gestation: There is no evidence of an intrauterine gestation. No pole or yolk sac is identified. MATERNAL: Uterus: There is a small amount of fluid in the endometrium and motion is noted within the endometrium suggesting blood products/mobile debris. The endometrium measures approximately 11 mm, and appears heterogeneous. No focal myometrial masses. Vascular flow is also present within the endometrium raising the question of retained products of conception she Right ovary/adnexa: Right ovary measures 2.81 cm x 1.93 cm x 1.99 cm. Right ovarian volume is 5.65 mL. The right ovary appears within range of normal. Left ovary/adnexa: Left ovary measures 3.79 cm x 3.06 cm x 2.49 cm. Left ovarian volume is 15.12 mL. There is a left ovarian cyst measuring approximately 2.5 x 1.6 x 2.0 cm. This shows mild complexity with a septation. Findings most likely reflect a physiologic cyst. Intraperitoneal space: There is a large amount of free fluid in the cul-de-sac which shows low-level particulate material. IMPRESSION: 1. No evidence of an intrauterine gestation. 2. Mild heterogeneous material and fluid within the endometrium with some motion suggesting blood products/mobile debris. 3. Mild perfusion to the endometrium suggesting retained products of conception. 4. Mildly complex left ovarian cyst measuring approximately 2.5 x 1.6 x 2.0 cm most likely reflecting physiologic cyst. 5. Large amount of nonspecific fluid within the cul-de-sac with low-level particulate material.
[2024-02-22 16:12] LABS: Chloride 108 mmol/L (98-107); Potassium 3.6 mmoL/L (3.5-5.1); Sodium 142 mmol/L (136-145)
[2024-02-22 16:13] LABS: Basophils # 0.1 K/mm3 (0-0.2); Basophils % 0.9 % (0.1-2.0); Eosinophils # 0.1 K/mm3 (0.0-0.4); Eosinophils % 0.8 % (0.1-12.0); Hematocrit 39.4 % (37.0-47.0); Hemoglobin 12.9 g/dL (12.2-16.2); Lymphocytes # 2.4 K/mm3 (0.7-4.5); Mean Corpuscular HGB Conc 32.7 g/dL (31.8-35.4); Mean Corpuscular Hemoglobin 29.1 pg (27.0-31.2); Mean Corpuscular Volume 89.2 fl (81-99); Mean Platelet Volume 7.9 fl (7.4-10.4); Monocytes # 0.7 K/mm3 (0.1-1.0); Monocytes % 7.7 % (1.7-9.3); Neutrophils % 64.7 % (37.0-80.0); Platelet Count 221 K/mm3 (142-424); Red Blood Count 4.42 M/mm3 (4.20-5.40); Red Cell Distribution Width 15.7 % (11.5-17.5); White Blood Count 9.2 K/mm3 (4.8-10.8)
--- NOTE | 2024-02-22 16:14 | PC.NURSE ---
PT TO US
--- NOTE | 2024-02-22 16:14 | HMH.EDGENADL ---
Discharge Plan Disposition Patient Disposition: Home, Self-Care Chief Complaint: OB/Uterine Contractions Prescriptions Prescriptions: No Action buprenorphine-naloxone 8-2 mg tablet, sublingual 2 tab sublingual DAILY valacyclovir 1 gram tablet 1,000 mg PO DAILY 10 Days Qty: 10 1RF metronidazole 500 mg tablet 500 mg PO BID 7 Days Qty: 14 1RF Referrals Follow up/Referrals: Suha Last APRN [Primary Care Provider] - See instructions Activity Restrictions/Add. Instructions Additional Instructions/Restrictions: Follow-up with Dr. Glez's partners in [employer] in the next couple of days, try to be seen before the weekend. Call your family doctor to establish care for this visit to the emergency department and schedule follow-up within 48 hours to ensure improvement. If you have any worsening of your condition or any other concerning signs or symptoms, return to the emergency department or your primary care doctor for further evaluation. Clinical Impressions Clinical Impression: Incomplete miscarriage Discharge ED Provider: Anand West General Adult HPI General Chief complaint: OB/Uterine Contractions Stated complaint: miscarriage 1 mo ago, abd pain Time Seen by Provider: 02/22/24 15:45 Mode of Arrival: Ambulatory Source of Information: Patient Limitations: No Limitations Description of Symptoms (Recalled from ER Triage Doc. by RN): 2 MISCARRIAGES IN THE LAST FEW MONTHS. HAS NOT BEEN TO THE OB AT ALL. . UNKNOWN LMP History of Present Illness HPI narrative: Please note that above description of symptoms, in this electronic medical record under categorization of recalled from ER triage doctor by RN are reflective of an initial nursing assessment, however, is not reflective of my full history and physical exam that was personally taken and clarified. Consequentially, this preceding description of symptoms, which may include the patient's categorized chief complaint in the EMR, do not reflect my personal clinical impression, and the ultimate description of history of present illness and patient stated complaints should be deferred to this section of the note. Unless stated otherwise or congruent with this section of the note, additional signs, symptoms, or incongruence should be interpreted as inaccurate with my clinical impression. Related Data Home Medications Medication Instructions Recorded Confirmed buprenorphine 8 mg-naloxone 2 mg 2 tab sublingual DAILY HX DRUG 02/21/23 12/26/23 sublingual tablet ABUSE Previous Rx's Medication Instructions Recorded valacyclovir 1 gram tablet 1,000 mg PO DAILY 10 days #10 tabs 12/26/23 metronidazole 500 mg tablet 500 mg PO BID 7 days #14 tabs 12/29/23 Allergies Allergy/AdvReac Type Severity Reaction Status Date / Time No Known Allergies Allergy Verified 12/26/23 16:25 [facility] Disclaimer: The information contained in this section may have been updated after the patient was seen, as this information can be updated by other users. Medical History Asthma attack Atypical chest pain IUGR, EFW 6% AC <1% Pleurisy Suboxone maintenance treatment complicating , antepartum Surgical History History of delivery Family History Other No significant family history Social History Smoking Status: Current every day smoker tobacco type: cigarettes alcohol intake: never substance use type: former substance user, marijuana and methamphetamine current occupational status: unemployed Travel in the last 8 weeks: None ROS Obtained: Yes All systems reviewed & no additional complaints except as documented Physical Exam General General appearance: alert and in no apparent distress Head Head exam: atraumatic and normocephalic Eye Eye exam: Present normal appearance, PERRL and EOMI ENT ENT exam: Present mucous membranes moist Neck Neck exam: Present normal inspection, full ROM and trachea midline Respiratory Respiratory exam: Absent respiratory distress, wheezes, stridor, accessory muscle use or prolonged expiratory phase Cardiovascular Cardiovascular exam: Present normal rhythm Abdominal Exam Abdominal exam: Present soft; Absent distention, tenderness, guarding, rebound or rigidity Extremities Exam Extremities exam: Absent edema Neurological Exam Neurological exam: Present alert, oriented X3, CN II-XII intact and normal gait; Absent motor sensory deficit Skin Skin exam: Present warm and dry; Absent diaphoresis or erythema Medical Decision Making Medical Records Medical records reviewed: Yes I reviewed the patient's medical records. Tao Inquiry Pt receiving controlled substance: No Tao was queried for this patient: No Vital Signs: 02/22/24 15:44 Temperature 98.4 F Temperature Source Oral Pulse Rate [Left] 83 Respiratory Rate 18 Blood Pressure [Left Arm] 116/59 L Blood Pressure Mean [Left Arm] 78 02 Sat by Pulse Oximetry 100 Oxygen Delivery Method Room Air Lab Data Lab Results 02/22/24 14:58: WBC 9.2, RBC 4.42, Hgb 12.9, Hct 39.4, MCV 89.2, MCH 29.1, MCHC 32.7, RDW 15.7, Plt Count 221, MPV 7.9, Neut % (Auto) 64.7, Lymph % (Auto) 26.0, Emery % (Auto) 7.7, Eos % (Auto) 0.8, Baso % (Auto) 0.9, Neut # (Auto) 6.0, Lymph # (Auto) 2.4, Emery # (Auto) 0.7, Eos # (Auto) 0.1, Baso # (Auto) 0.1, Sodium 142, Potassium 3.6, Chloride 108 H, Carbon Dioxide 29, Anion Gap 8.6, BUN 8, Creatinine 0.60, Estimated Creat Clear 144, Estimated GFR 122, Est GFR ( Amer) 147, Glucose 100, Calcium 9.4, Total Bilirubin 0.5, AST 24, ALT 22, Alkaline Phosphatase 72, Total Protein 7.6, Albumin 4.4, Globulin 3.2, Albumin/Globulin Ratio 1.4, HCG, Quant < 2 02/22/24 17:25: Urine Color Yellow, Urine Appearance Clear, Urine pH 7.5, Ur Specific Warren 1.015, Urine Protein Negative, Urine Glucose (UA) Negative, Urine Ketones Negative, Urine Blood 2+, Urine Nitrate Negative, Urine Bilirubin Negative, Urine Urobilinogen 0.2, Ur Leukocyte Esterase Trace 02/22/24 14:58 02/22/24 14:58 Orders (Tests/Meds): ORDERS Category Date Time Status Type and Screen Stat BBK 02/22/24 16:55 Received POCUS Point of Care (ER Only) Stat Exams 02/22/24 15:59 Completed CBC w/Auto Diff [Complete Blood Count Auto Diff] Stat Lab 02/22/24 14:58 Completed CMP [Comprehensive Metabolic Panel] Stat Lab 02/22/24 14:58 Completed HCG,Quantitative Stat Lab 02/22/24 14:58 Completed UA [Urinalysis and Microscopic] Stat Lab 02/22/24 17:25 Results US OB transvaginal Stat Ultrasound 02/22/24 15:54 Completed Medical Decision Narrative: 23-year-old female no relevant medical presenting with concern for miscarriage. Patient states that she had a miscarriage 2 months ago, but was never formally evaluated or diagnosed with having a miscarriage. She has very irregular periods, not sure when her last normal period was. She thinks that she was having a miscarriage 2 months prior to this due to large blood clots passing and cramping abdominal pain. States she has been bleeding since this time 2 months ago. Over the past week or two, she has had cramping lower abdominal pain, passage of dark red and bright red clots. No fevers or chills, nausea or vomiting, urinary symptoms, or any other concerns. She states that she took a negative test in December of this year, 4 weeks prior to this, she had a positive test. But she has been bleeding the entire time. Patient does not know her blood type, does not know if she is ever received RhoGAM, is not on blood thinners, and denies any other symptoms. History was obtained via conversation with patient. On arrival, patient hemodynamically stable, alert, oriented x4, appropriate, GCS 15, moving all extremities spontaneously, pupils equal and reactive to light. Abdomen soft, nontender, nondistended. Differential includes menorrhagia, , miscarriage, UTI, among others Workup independently interpreted and significant for normal CBC, nonactionable chemistry. hCG less than 2. Urinalysis with concern for early UTI with leukocyte esterase, blood. Formal OB ultrasound with concern for retained products versus other intrauterine process. See radiology read for full review of final results. On reevaluation, patient still resting comfortably, continues to be stable. Conversation was had with her regarding outpatient management, she states she called OB, her OB of choice is going to be out the next couple of weeks, it was recommended that she call the OB office tomorrow and follow-up with one of his partners. She is agreeable to this plan. Because she Rh+, no need for RhoGAM. Because patient at baseline without signs or symptoms of clinical decompensation, deemed appropriate for discharge. Results were relayed to patient who voiced understanding and were agreeable to outpatient management and follow up. I discussed my clinical impression with patient and answered all questions. At this time, the evidence for any other entities in the differential is insufficient to warrant any further testing or ED observation. This was explained as well. Advisory was given that persistent or worsening symptoms require further evaluation. I confirmed the understanding of this discussion. Critical Care Critical Care Time Critical Care Time: No
[2024-02-22 16:15] LABS: Alanine Aminotransferase 22 U/L (12-78); Albumin Level 4.4 g/dl (3.5-5.0); Albumin/Globulin Ratio 1.4 (1.1-1.8); Alkaline Phosphatase 72 U/L (38-126); Anion Gap 8.6 mEq/L (5-15); Aspartate Amino Transferase 24 U/L (14-36); Bilirubin,Total 0.5 mg/dl (0.2-1.3); Blood Urea Nitrogen 8 mg/dl (7-17); Calcium 9.4 mg/dl (8.4-10.2); Carbon Dioxide 29 mmol/L (22.0-30.0); Creatinine Clearance Estimated 144 mL/min (50-200); Estimated Glomerular Filt Rate 122 ml/min (>60); GFR (African American) 147 ML/MIN (>60); Globulin 3.2 g/dL (1.3-3.2); Glucose 100 mg/dl (74-100); Total Protein,Serum 7.6 g/dl (6.3-8.2)
--- NOTE | 2024-02-22 16:16 | PC.NURSE ---
pt going to u/s at this time.
[2024-02-22 16:39] LABS: HCG,Quantitative < 2 mIU/ml (0-5.42)
--- NOTE | 2024-02-22 16:45 | PC.NURSE ---
pt returned from us
--- NOTE | 2024-02-22 17:35 | PC.NURSE ---
PT MOVED TO ROOM FROM TRIAGE
[2024-02-22 17:37] LABS: Microscopic, Urine URINE MICROSCOPIC (MICROSCOPIC)
[2024-02-22 17:42] LABS: Appearance,Urine CLEAR (Clear); Bilirubin,Urine Negative (Negative); Blood, Urine 2+ (Negative); Color,Urine YELLOW (Yellow); Glucose,Urine (UA) Negative (Negative); Ketones,Urine Negative (Negative); Leukocyte Esterase,Urine TRACE (Negative); Nitrate,Urine Negative (Negative); PH,Urine 7.5 (5.0-8.5); Protein,Urine Negative (Negative); Specific Gravity, Urine 1.015 (1.005-1.030); Urobilinogen,Urine 0.2 EU/dl (0.2)
--- NOTE | 2024-02-22 17:49 | PC.NURSE ---
DR RODRIGUEZ AT BEDSIDE
[2024-02-22 18:08] LABS: Bacteria,Urine 1+ /lpf; Squamous Epithelial Cell,Urine Occasional #/hpf (0-5); WBC,Urine Occasional #/hpf (0-3)
[2024-02-22 18:12] VITALS: BP 116/59; PULSE 83; RESP 18; TEMP 36.9; O2SAT 100
== END 2024-02-22 18:13 | disposition home or self-care (01) ==
PROVIDERS: Emergency Provider Emergency Medicine; PCP Nurse Practitioner
DX: O03.4 Incomplete spontaneous abortion without complication (principal); F17.210 Nicotine dependence, cigarettes, uncomplicated
CPT/HCPCS: 76817; 80053; 81001; 84702; 85025; 86850; 99284

== ENCOUNTER 2024-12-18 14:36 | Emergency (ER) | payer OTHER, SELFPAY ==
[2024-12-18] VITALS (7 sets, daily range): BP systolic 95–119; BP diastolic 59–68; PULSE 71–97; RESP 16–18; TEMP 37.1–37.9; O2SAT 94–99; BMI 24.0
[2024-12-18 14:48] LABS: Coronavirus 19, PCR Not Detected (NotDetected); Influenza B, PCR Not Detected (NotDetected)
--- NOTE | 2024-12-18 14:52 | HMH.EDGENADL ---
Discharge Plan Disposition Patient Disposition: Home, Self-Care Chief Complaint: Upper Respiratory Infection Prescriptions Prescriptions: New ondansetron 4 mg tablet,disintegrating 4 mg PO Q8H PRN (Reason: nausea and vomiting) 4 Days Qty: 12 0RF kiehribtgdamgod-etbjyblxq-IP [Bromfed DM] 2-30-10 mg/5 mL syrup 5 ml PO Q6H PRN (Reason: cold symptoms) Qty: 118 0RF No Action buprenorphine-naloxone 8-2 mg tablet, sublingual 2 tab sublingual DAILY Referrals Follow up/Referrals: Suha Last APRN [Primary Care Provider] - See instructions Activity Restrictions/Add. Instructions Additional Instructions/Restrictions: Call your family doctor to establish care for this visit to the emergency department and schedule follow-up within 48 hours to ensure improvement. Take Tylenol 1000 mg every 6 hours (4 times daily) and ibuprofen 400 mg every 6 hours (4 times daily) as needed with food and water to prevent GI upset and kidney damage. Clinical Impressions Clinical Impression: Acute viral syndrome Print Language Print Language: Kiswahili Discharge ED Provider: Anand West General Adult HPI <Maddy Pickens, - Last Filed: 12/18/24 14:56> General Chief complaint: Upper Respiratory Infection Stated complaint: bodyaches, fever, vomiting, cough Time Seen by Provider: 12/18/24 14:49 Mode of Arrival: Ambulatory Source of Information: Patient Limitations: No Limitations Description of Symptoms (Recalled from ER Triage Doc. by RN): Pt presents stating she thinks she has an upper respiratory infection. Pt has had chills, productive cough, and vomiting. History of Present Illness HPI narrative: This patient is a 24-year-old female with history of tobacco abuse presenting to the emergency department for evaluation for I think I have an upper respiratory infection. Patient states that she has had chills, fever, sore throat, body aches, productive cough, nausea, and vomiting for the last 3 days. She states she has been taking some DayQuil at home but nothing seems to help. She has not taken anything today. No other concerns noted at this time. Related Data Home Medications ?Medication ?Instructions ?Recorded ?Confirmed buprenorphine 8 mg-naloxone 2 mg 2 tab sublingual DAILY HX DRUG 02/21/23 12/18/24 sublingual tablet ABUSE Previous Rx's ?Medication ?Instructions ?Recorded chwzebmlxywwerb-ghvjkbacenysnbv-MV 5 ml PO Q6H PRN cold symptoms #118 12/18/24 2 mg-30 mg-10 mg/5 mL oral syrup mL (Bromfed DM) ondansetron 4 mg disintegrating 4 mg PO Q8H PRN nausea and 12/18/24 tablet vomiting 4 days #12 tabs Allergies Allergy/AdvReac Type Severity Reaction Status Date / Time No Known Allergies Allergy Verified 12/26/23 16:25 PFSH <Maddy Pickens DO - Last Filed: 12/18/24 14:56> PFS Disclaimer: The information contained in this section may have been updated after the patient was seen, as this information can be updated by other users. Medical History Asthma attack IUGR, Suboxone maintenance treatment complicating , antepartum Pleurisy Atypical chest pain Surgical History History of delivery Family History Other No significant family history Social History Smoking Status: Current every day smoker tobacco type: cigarettes alcohol intake: never substance use type: former substance user, marijuana and methamphetamine current occupational status: unemployed Travel in the last 8 weeks: None Have you lived/traveled outside [place] in past 30 days?: No Contact w/someone who lives/traveled outside US past 30 days?: No Exposure to someone with infectious disease in past 14 days?: No Do you have a fever (greater than 100.4 F or 38 C)?: Yes Have you tested positive for COVID-19: No Exposed to someone with COVID-19 in past 14 days?: No Do you have a sore throat?: No Do you have a cough?: Yes Do you have any weakness?: No Do you have any diarrhea?: No Are you experiencing any unusual bleeding?: No Do you have any muscle aches/pain?: Yes Do you have any abdominal pain?: No Are you experiencing loss of taste or smell?: No Other Medical History Have you received the Flu Vaccine for this season: No Have you received the Pneumonia Vaccine: No <Maddy Pickens - Last Filed: 12/18/24 14:56> ROS Obtained: Yes All systems reviewed & no additional complaints except as documented Physical Exam <Maddy Pickens DO - Last Filed: 12/18/24 14:56> General General appearance: alert and in no apparent distress Head Head exam: atraumatic and normocephalic Eye Eye exam: Present normal appearance, PERRL and EOMI ENT ENT exam: Present normal exam, normal oropharynx, mucous membranes moist and normal external ear exam Neck Neck exam: Present normal inspection, full ROM and trachea midline; Absent tenderness Chest Chest inspection: Present normal inspection and symmetric chest wall rise; Absent tenderness Respiratory Respiratory exam: Present normal lung sounds bilaterally; Absent respiratory distress, wheezes, stridor or accessory muscle use Cardiovascular Cardiovascular exam: Present normal rhythm and tachycardia Abdominal Exam Abdominal exam: Present soft and tenderness (Generalized, nonfocal); Absent distention, guarding, rebound or rigidity Extremities Exam Extremities exam: Present normal inspection, full ROM and normal capillary refill; Absent tenderness or edema Back Exam Back exam: Present normal inspection and full ROM; Absent tenderness Neurological Exam Neurological exam: Present alert, oriented X3, CN II-XII intact and normal gait; Absent motor sensory deficit Psychiatric Psychiatric exam: Present normal affect and normal mood Skin Skin exam: Present warm and dry Medical Decision Making <Maddy Pickens, - Last Filed: 12/18/24 14:56> Medical Records Medical records reviewed: Yes I reviewed the patient's medical records. Screening: Per USPSTF and CDC recommendations, given the prevalence of disease in our region, it is our hospital?s policy to screen for HIV and viral Hepatitis for all patients aged 18 and over and those with ongoing risk factors. Tao Inquiry Pt receiving controlled substance: No Vital Signs: 12/18/24 14:40 12/18/24 15:15 12/18/24 15:30 Temperature 100.3 F H Temperature Source Oral Pulse Rate 84 76 Pulse Rate [Right] 97 H Respiratory Rate 18 Blood Pressure 105/66 L 113/68 Blood Pressure [Right Arm] 119/62 Blood Pressure Mean 75 Blood Pressure Mean [Right Arm] 81 Blood Pressure Source [Right Arm] Automatic Cuff Blood Pressure Position [Right Arm] Sitting 02 Sat by Pulse Oximetry 99 97 96 Oxygen Delivery Method Room Air Room Air 12/18/24 16:00 Temperature Temperature Source Pulse Rate 76 Pulse Rate [Right] Respiratory Rate Blood Pressure 104/63 L Blood Pressure [Right Arm] Blood Pressure Mean 71 Blood Pressure Mean [Right Arm] Blood Pressure Source [Right Arm] Blood Pressure Position [Right Arm] 02 Sat by Pulse Oximetry 94 L Oxygen Delivery Method Lab Data Lab results reviewed: Yes I reviewed the patient's lab results. Lab Results 12/18/24 14:43: SARS-CoV-2 (PCR) Not detected, Influenza A Untype (PCR) Detected A, Influenza Type B (PCR) Not detected 12/18/24 14:50: Group A Strep Rapid Negative Orders (Tests/Meds): ED MEDICATIONS Discontinued Medications Generic Name Dose Route Start Last Admin Trade Name Freq PRN Reason Stop Dose Admin Acetaminophen 1,000 mg 12/18/24 14:51 12/18/24 14:56 Acetaminophen 500mg Tab PO 12/18/24 14:52 1,000 mg ONCE ONE Administration Ibuprofen 800 mg 12/18/24 14:51 12/18/24 14:56 Ibuprofen 400 Mg Tablet PO 12/18/24 14:52 800 mg ONCE ONE Administration Ondansetron HCl 4 mg 12/18/24 14:51 12/18/24 14:56 Ondansetron 4mg Odt SL 12/18/24 14:52 4 mg ONCE ONE Administration Tetracycl/Hydrocort/Nystatin/Diphen 15 ml 12/18/24 14:52 12/18/24 14:56 Magic Mouthwash 300ml Bottle PO 12/18/24 14:53 15 ml ONCE ONE Administration ORDERS Category Date Time Status Rapid PCR Covid and Flu A/B Stat Lab 12/18/24 14:43 Completed Strep Scrn Group A (Rapid) Stat Lab 12/18/24 14:50 Completed Urine , HCG Qual. Stat Lab 12/18/24 14:51 Ordered Strep Screen Confirmation Stat Micro 12/18/24 14:50 Received Medical Decision Narrative: In summary, this patient is a 24-year-old female presenting to the Emergency Department for evaluation of fever, cough, body aches, chills, sore throat, nausea, vomiting. Differential diagnoses considered include but are not limited to viral syndrome, gastroenteritis, dehydration, pneumonia. Ruling out the most morbid conditions drove assessment. It should be noted patient's history includes tobacco dependence which is not at goal therapy. This complicates all aspects of care by increasing patient's risk for morbidity. On exam, the patient is nontoxic-appearing. She is uncomfortable, febrile, tachycardic with likely viral syndrome as culprit. Cardiopulmonary and abdominal exams do not demonstrate any concerns for acute surgical pathology or bacterial pneumonia. Viral swab and strep swabs were sent. Patient was given oral Tylenol, ibuprofen, Zofran, Magic mouthwash. Will assess for symptomatic improvement. 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 Patient care signed out to the oncoming provider, Dr. West, pending reassessment. <Anand West MD - Last Filed: 12/18/24 17:20> Vital Signs: 12/18/24 14:40 12/18/24 15:15 12/18/24 15:30 Temperature 100.3 F H Temperature Source Oral Pulse Rate 84 76 Pulse Rate [Right] 97 H Respiratory Rate 18 Blood Pressure 105/66 L 113/68 Blood Pressure [Right Arm] 119/62 Blood Pressure Mean 75 Blood Pressure Mean [Right Arm] 81 Blood Pressure Source [Right Arm] Automatic Cuff Blood Pressure Position [Right Arm] Sitting 02 Sat by Pulse Oximetry 99 97 96 Oxygen Delivery Method Room Air Room Air 12/18/24 16:00 Temperature Temperature Source Pulse Rate 76 Pulse Rate [Right] Respiratory Rate Blood Pressure 104/63 L Blood Pressure [Right Arm] Blood Pressure Mean 71 Blood Pressure Mean [Right Arm] Blood Pressure Source [Right Arm] Blood Pressure Position [Right Arm] 02 Sat by Pulse Oximetry 94 L Oxygen Delivery Method Lab Data Lab Results 12/18/24 14:43: SARS-CoV-2 (PCR) Not detected, Influenza A Untype (PCR) Detected A, Influenza Type B (PCR) Not detected 12/18/24 14:50: Group A Strep Rapid Negative Orders (Tests/Meds): ED MEDICATIONS Discontinued Medications Generic Name Dose Route Start Last Admin Trade Name Freq PRN Reason Stop Dose Admin Acetaminophen 1,000 mg 12/18/24 14:51 12/18/24 14:56 Acetaminophen 500mg Tab PO 12/18/24 14:52 1,000 mg ONCE ONE Administration Ibuprofen 800 mg 12/18/24 14:51 12/18/24 14:56 Ibuprofen 400 Mg Tablet PO 12/18/24 14:52 800 mg ONCE ONE Administration Ondansetron HCl 4 mg 12/18/24 14:51 12/18/24 14:56 Ondansetron 4mg Odt SL 12/18/24 14:52 4 mg ONCE ONE Administration Tetracycl/Hydrocort/Nystatin/Diphen 15 ml 12/18/24 14:52 12/18/24 14:56 Magic Mouthwash 300ml Bottle PO 12/18/24 14:53 15 ml ONCE ONE Administration ORDERS Category Date Time Status Rapid PCR Covid and Flu A/B Stat Lab 12/18/24 14:43 Completed Strep Scrn Group A (Rapid) Stat Lab 12/18/24 14:50 Completed Urine , HCG Qual. Stat Lab 12/18/24 14:51 Ordered Strep Screen Confirmation Stat Micro 12/18/24 14:50 Received Medical Decision Narrative: In summary, this patient is a 24-year-old female presenting to the Emergency Department for evaluation of fever, cough, body aches, chills, sore throat, nausea, vomiting. Differential diagnoses considered include but are not limited to viral syndrome, gastroenteritis, dehydration, pneumonia. Ruling out the most morbid conditions drove assessment. It should be noted patient's history includes tobacco dependence which is not at goal therapy. This complicates all aspects of care by increasing patient's risk for morbidity. On exam, the patient is nontoxic-appearing. She is uncomfortable, febrile, tachycardic with likely viral syndrome as culprit. Cardiopulmonary and abdominal exams do not demonstrate any concerns for acute surgical pathology or bacterial pneumonia. Viral swab and strep swabs were sent. Patient was given oral Tylenol, ibuprofen, Zofran, Magic mouthwash. Will assess for symptomatic improvement. 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 Patient care signed out to the oncoming provider, Dr. West, pending reassessment. Jenna: I assumed primary responsibility for this patient after signout from previous physician. On my evaluation, patient clinically well-appearing. No concern for clinical decompensation or emergent life or limb threatening pathology. Independent interpretation of patient's workup influenza positive.Because patient at baseline without signs or symptoms of clinical decompensation, deemed appropriate for discharge. Results were relayed to patient who voiced understanding and were agreeable to outpatient management and follow up. I discussed my clinical impression with patient and answered all questions. At this time, the evidence for any other entities in the differential is insufficient to warrant any further testing or ED observation. This was explained as well. Advisory was given that persistent or worsening symptoms require further evaluation. I confirmed the understanding of this discussion. Critical Care <Maddy Pickens, DO - Last Filed: 12/18/24 14:56> Critical Care Time Critical Care Time: No
[2024-12-18] MEDS: MAGIC MOUTHWASH 300ML BOTTLE 15 ML PO (14:56)
[2024-12-18] MEDS: ONDANSETRON 4MG ODT 4 MG SL (14:56)
[2024-12-18] MEDS: IBUPROFEN 400 MG TABLET 800 MG PO (14:56)
[2024-12-18] MEDS: ACETAMINOPHEN 500MG TAB 1000 MG PO (14:56)
[2024-12-18 15:04] LABS: Strep Scrn Group A (Rapid) Negative (Negative)
--- NOTE | 2024-12-18 15:04 | PC.NURSE ---
pt given tony
[2024-12-18 15:13] LABS: Influenza A, PCR Detected (NotDetected)
--- NOTE | 2024-12-18 15:19 | PC.NURSE ---
ROUNDED ON THE PT. THE PT VOICES THAT SHE DOES NOT NEED ANYTHING AT THIS TIME. CALL LIGHT IS WITHIN REACH OF THE PT.
--- NOTE | 2024-12-18 16:24 | PC.NURSE ---
Patient is in bed with call light in reach.
--- NOTE | 2024-12-18 17:18 | PC.NURSE ---
DR RODRIGUEZ AT BEDSIDE
--- NOTE | 2024-12-18 17:22 | PC.NURSE ---
ROUNDED ON THE PT. THE PT VOICES THAT SHE DOES NOT NEED ANYTHING AT THIS TIME. CALL LIGHT IS WITHIN REACH OF THE PT.
== END 2024-12-18 17:31 | disposition home or self-care (01) ==
PROVIDERS: Emergency Medicine; Emergency Provider Emergency Medicine; PCP Nurse Practitioner
DX: B34.9 Viral infection, unspecified (principal); R50.9 Fever, unspecified; J02.9 Acute pharyngitis, unspecified; M79.10 Myalgia, unspecified site; R05.9 Cough, unspecified; R11.2 Nausea with vomiting, unspecified; F17.210 Nicotine dependence, cigarettes, uncomplicated
CPT/HCPCS: 87430; 87636; 99283; Q0162

== ENCOUNTER 2025-05-12 14:47 | Emergency (ER) | payer OTHER, SELFPAY ==
[2025-05-12] VITALS (11 sets, daily range): BP systolic 91–110; BP diastolic 49–93; PULSE 50–64; RESP 16–20; TEMP 36.4–36.8; O2SAT 96–99; BMI 20.4
--- NOTE | 2025-05-12 15:19 | CT_ITS ---
PROCEDURE INFORMATION: Exam: CT Abdomen And Pelvis With Contrast Exam date and time: 05/12/2025 4:53 PM Age: 24 years old Clinical indication: Abdominal pain; Additional info: Ruq, epigastric abd pain, n/v/d TECHNIQUE: Imaging protocol: Computed tomography of the abdomen and pelvis with contrast. Radiation optimization: All CT scans at this facility use at least one of these dose optimization techniques: automated exposure control; mA and/or kV adjustment per patient size (includes targeted exams where dose is matched to clinical indication); or iterative reconstruction. Contrast material: ISOVUE; Contrast volume: 75 ml; Contrast route: IV; COMPARISON: CT ABDOMEN PELVIS WO CON 12/08/2023 8:09 PM FINDINGS: Liver: Mild fatty infiltration of the liver along the falciform ligament. Gallbladder and biliary ducts: Gallbladder is distended similar to prior studies. Pancreas: Normal. No ductal dilation. Spleen: Normal. No splenomegaly. Adrenal glands: Normal. No mass. Kidneys and ureters: Normal. No hydronephrosis. Stomach and bowel: There is mild gastric wall thickening. Distended segments of small bowel in the left lower quadrant without a transition point. This is most likely peristalsis, less likely mild ileus. Appendix: Unremarkable appendix. Intraperitoneal space: Small amount of free fluid in the pelvis. This is most likely physiologic. Vasculature: Unremarkable. No abdominal aortic aneurysm. Lymph nodes: Unremarkable. No enlarged lymph nodes. Urinary bladder: Unremarkable as visualized. Reproductive: Unremarkable as visualized. Bones/joints: Unremarkable. No acute fracture. Soft tissues: Unremarkable. IMPRESSION: There is mild gastric wall thickening. Please exclude gastritis.
--- NOTE | 2025-05-12 15:31 | ED_ITS ---
Discharge Plan Disposition Patient Disposition: Home, Self-Care Prescriptions Prescriptions: New ondansetron 4 mg tablet,disintegrating 4 mg PO Q6H PRN (Reason: nausea and vomiting) 5 Days Qty: 20 0RF No Action buprenorphine-naloxone 8-2 mg tablet, sublingual 2 tab sublingual DAILY Referrals Follow up/Referrals: Provider,Referral, [Referring, Medical] - See instructions Regino Shepherd MD [Staff Physician, General Surgery] - See instructions Activity Restrictions/Add. Instructions Additional Instructions/Restrictions: You are being referred to our general surgeon, Dr. Hinson, for the sludge found in your gallbladder. Contact them at the number provided to you to schedule an appointment. You were also found to have some inflammation in your stomach that could be from a virus and should improve over time. You can take Zofran to help with your symptoms as prescribed. Continue to hydrate well by drinking plenty of fluids. Follow-up with your primary care physician if symptoms do not improve. If you develop any new or worsening symptoms, or if you become concerned for your health for any reason, return to the emergency department for evaluation Clinical Impressions Clinical Impression: Nausea & vomiting, Abdominal pain, Diarrhea, Gallbladder sludge, Gastritis Instructions Patient Instructions: DI for Acute Abdominal Pain Print Language Print Language: Honduran Discharge ED Provider: Boston Ackerman Adult HPI General Chief complaint: Abdominal Pain Stated complaint: n/v Time Seen by Provider: 05/12/25 15:14 Mode of Arrival: EMS Source of Information: Patient Description of Symptoms (Recalled from ER Triage Doc. by RN): Patient presents to ED for midline lower abdominal pain accompanied by n/v/d that started today. Received 4 mg zofran IV with EMS. History of Present Illness HPI narrative: Mavis Rowell is a 24F with a past medical history of miscarriage, tobacco use, marijuana use, denies alcohol use who presents to the emergency department for complaints of bilious vomiting, nausea and abdominal pain in her mid abdomen. She states that sharp mid abdominal pain began this morning and Has been followed by nonbilious nonbloody vomiting. She also reports some nonbloody diarrhea as well. She is not sure if she is . She denies any dysuria or hematuria. She denies any previous abdominal surgeries. She states that prior to this, she was having normal bowel movements. She denies any fever, chest pain, shortness of breath. Related Data Home Medications ?Medication ?Instructions ?Recorded ?Confirmed buprenorphine 8 mg-naloxone 2 mg 2 tab sublingual LAURA Y HX DRUG 02/21/23 05/12/25 sublingual tablet ABUSE Previous Rx's ?Medication ?Instructions ?Recorded ondansetron 4 mg disintegrating 4 mg PO Q6H PRN nausea and 05/12/25 tablet vomiting 5 days #20 tabs Allergies Allergy/AdvReac Type Severity Reaction Status Date / Time No Known Allergies Allergy Verified 12/26/23 16:25 [facility] Disclaimer: The information contained in this section may have been updated after the patient was seen, as this information can be updated by other users. Medical History Asthma attack IUGR, Suboxone maintenance treatment complicating , antepartum Pleurisy Atypical chest pain Surgical History History of delivery Family History Other No significant family history Social History (Updated 05/12/25 @ 15:04 by Kacy Olsen RN) Smoking Status: Current every day smoker tobacco type: cigarettes alcohol intake: never substance use type: former substance user, marijuana and methamphetamine current occupational status: unemployed Travel in the last 8 weeks?: None Have you lived/traveled outside [place] in past 30 days?: No Contact w/someone who lives/traveled outside US past 30 days?: No Exposure to someone with infectious disease in past 14 days?: No Do you have a fever (greater than 100.4 F or 38 C)?: No Have you tested positive for COVID-19?: No Exposed to someone with COVID-19 in past 14 days?: No Do you have a sore throat?: No Do you have a cough?: No Do you have any weakness?: No Do you have any diarrhea?: No Are you experiencing any unusual bleeding?: No Do you have any muscle aches/pain?: No Do you have any abdominal pain?: No Are you experiencing loss of taste or smell?: No Other Medical History Have you received the Flu Vaccine for this season: No Have you received the Pneumonia Vaccine: No ROS Obtained: Yes Systems reviewed as appropriate & no additional complaints except as documented Physical Exam General General appearance: alert and in no apparent distress Comment: uncomfortable appearing Head Head exam: atraumatic Eye Eye exam: Present normal appearance ENT ENT exam: Present normal external ear exam Neck Neck exam: Present full ROM Chest Chest inspection: Present symmetric chest wall rise Respiratory Respiratory exam: Present normal lung sounds bilaterally; Absent respiratory distress Cardiovascular Cardiovascular exam: Present regular rate and normal rhythm Abdominal Exam Abdominal exam: Present soft, tenderness (Right upper quadrant and epigastric with guarding) and guarding; Absent distention Extremities Exam Extremities exam: Present normal inspection Back Exam Back exam: Present normal inspection Neurological Exam Neurological exam: Present alert and oriented X3 Psychiatric Psychiatric exam: Present normal affect Skin Skin exam: Present warm and dry Medical Decision Making Medical Records Screening: Per USPSTF and CDC recommendations, given the prevalence of disease in our region, it is our hospital?s policy to screen for HIV and viral Hepatitis for all patients aged 18 and over and those with ongoing risk factors. Tao Inquiry Pt receiving controlled substance: No Vital Signs: 05/12/25 15:00 05/12/25 15:03 05/12/25 15:03 Temperature 98.3 F 98.3 F Temperature Source Oral Pulse Rate 50 L 56 L Pulse Rate [Right Radial] 56 L Respiratory Rate 20 18 18 Blood Pressure 110/93 H 91/49 L Blood Pressure [Right Arm] 91/49 L Blood Pressure Mean 98 Blood Pressure Mean [Right Arm] 63 Blood Pressure Source [Right Arm] Automatic Cuff Blood Pressure Position [Right Arm] Sitting 02 Sat by Pulse Oximetry 98 97 97 Oxygen Delivery Method Room Air Room Air 05/12/25 15:30 05/12/25 16:39 05/12/25 17:00 Temperature Temperature Source Pulse Rate 54 L 55 L 62 Pulse Rate [Right Radial] Respiratory Rate 20 Blood Pressure 106/58 L 96/56 L 102/65 L Blood Pressure [Right Arm] Blood Pressure Mean 74 Blood Pressure Mean [Right Arm] Blood Pressure Source [Right Arm] Blood Pressure Position [Right Arm] 02 Sat by Pulse Oximetry 99 97 98 Oxygen Delivery Method 05/12/25 17:30 05/12/25 18:00 05/12/25 18:30 Temperature Temperature Source Pulse Rate 64 57 L 57 L Pulse Rate [Right Radial] Respiratory Rate Blood Pressure 99/61 L 99/61 L 91/63 L Blood Pressure [Right Arm] Blood Pressure Mean Blood Pressure Mean [Right Arm] Blood Pressure Source [Right Arm] Blood Pressure Position [Right Arm] 02 Sat by Pulse Oximetry 97 99 99 Oxygen Delivery Method 05/12/25 19:00 Temperature Temperature Source Pulse Rate 54 L Pulse Rate [Right Radial] Respiratory Rate 18 Blood Pressure 109/61 L Blood Pressure [Right Arm] Blood Pressure Mean 71 Blood Pressure Mean [Right Arm] Blood Pressure Source [Right Arm] Blood Pressure Position [Right Arm] 02 Sat by Pulse Oximetry 98 Oxygen Delivery Method Lab Data Lab Results 05/12/25 16:06: Urine Color Yellow, Urine Appearance Clear, Urine pH 5.5, Ur Specific [place] 1.020, Urine Protein Negative, Urine Glucose (UA) Negative, Urine Ketones Negative, Urine Blood 2+ A, Urine Nitrate Negative, Urine Bilirubin Negative, Urine Urobilinogen 0.2, Ur Leukocyte Esterase Negative, Urine RBC Occasional, Urine WBC None, Ur Squamous Epith Cells None, Urine Bacteria None 05/12/25 16:09: WBC 5.8, RBC 4.90, Hgb 14.5, Hct 43.1, MCV 88.0, MCH 29.6, MCHC 33.6, RDW 13.3, Plt Count 227, MPV 9.8, Neut % (Auto) 77.1, Lymph % (Auto) 19.6, [place] % (Auto) 2.6, Eos % (Auto) 0.0 L, Baso % (Auto) 0.5, Neut # (Auto) 4.5, Lymph # (Auto) 1.1, [place] # (Auto) 0.2, Eos # (Auto) 0.0, Baso # (Auto) 0.0, PT 11.9, INR 1.08, Sodium 137, Potassium 4.0, Chloride 104, Carbon Dioxide 25, Anion Gap 12.0, BUN 10, Creatinine 0.60, Estimated Creat Clear 121, Estimated GFR 121, Est GFR ( Amer) 146, Glucose 104 H, Calcium 9.1, Total Bilirubin 0.4, AST 23, ALT 17, Alkaline Phosphatase 64, Total Protein 7.9, Albumin 4.6, G lobulin 3.3 H, Albumin/Globulin Ratio 1.4, Lipase 71, Serum HCG, Qual Negative, HCV Ab PUMA w/Rflx PCR Qn Negative, HIV Ag/Ab Combo Qual Negative 05/12/25 16:09 05/12/25 16:09 Orders (Tests/Meds): ED MEDICATIONS Generic Name Dose Route Start Last Admin Trade Name Freq PRN Reason Stop Dose Admin Sodium Chloride 10 ml 05/12/25 16:52 05/12/25 16:55 Sodium Chloride 0.9% 10ml Syr (Rad Only) IV 06/11/25 16:51 10 ml NEEDED PRN Administration Maintain IV Site Discontinued Medications Generic Name Dose Route Start Last Admin Trade Name Freq PRN Reason Stop Dose Admin Iopamidol 75 ml 05/12/25 16:52 05/12/25 16:54 Iopamidol-370 (76%);100ml Bottle IV 05/12/25 16:53 75 ml ONCE ONE Administration Morphine Sulfate 4 mg 05/12/25 15:19 05/12/25 15:43 Morphine 4mg/Ml Syringe IV 05/12/25 15:20 4 mg ONCE ONE Administration ORDERS Category Date Time Status CT abdomen pelvis w con Stat Cat Scan 05/12/25 15:19 Completed POCUS Point of Care (ER Only) Stat Exams 05/12/25 15:19 Completed CBC w/Auto Diff [Complete Blood Count Auto Diff] Stat Lab 05/12/25 16:09 Completed CMP [Comprehensive Metabolic Panel] Stat Lab 05/12/25 16:09 Completed HIV Combo Stat Lab 05/12/25 16:09 Completed Hepatitis C Ab Qual. W/ RFX Stat Lab 05/12/25 16:09 Completed Lipase Stat Lab 05/12/25 16:09 Completed PT INR [Prothrombin Time INR] Stat Lab 05/12/25 16:09 Completed Serum [HCG Qualitative, Serum] Stat Lab 05/12/25 16:09 Completed UA [Urinalysis and Microscopic] Stat Lab 05/12/25 16:06 Completed EKG Request [ECG Request] Stat Y 05/12/25 16:15 Ordered ECG Data Tracing #1: I reviewed this ECG and interpreted as documented below: Sinus bradycardia. No ST elevation or depression. Medical Decision Narrative: Mavis Rowell is a 24F with a past medical history of miscarriage, tobacco use, marijuana use, denies alcohol use who presents to the emergency department for complaints of bilious vomiting, nausea and abdominal pain in her mid abdomen. She states that sharp mid abdominal pain began this morning and Has been followed by nonbilious nonbloody vomiting. She also reports some nonbloody diarrhea as well. She is not sure if she is . She denies any dysuria or hematuria. She denies any previous abdominal surgeries. She states that prior to this, she was having normal bowel movements. She denies any fever, chest pain, shortness of breath. On arrival, patient is normotensive, mildly bradycardic with a heart rate of 50 bpm, afebrile, breathing company on room air with oxygen saturation 98% SpO2. Physical exam, as stated above, revealed a nontoxic-appearing female in no acute distress. She has focal tenderness in the right upper quadrant and epigastric region with guarding in this area but no peritonitis. Cardiopulmonary exam is unremarkable. Differential diagnosis includes, but is not limited to: Acute cholecystitis, choledocholithiasis, acute pancreatitis, peptic ulcer disease, GERD, ectopic , UTI, constipation, among others. The most morbid conditions were considered and workup was based on these. Workup in the emergency department included: [id number] right upper quadrant ultrasound, CT abdomen pelvis with IV contrast, CBC, CMP, EKG, serum test, PT/INR, lipase. 4 mg IV morphine was administered for symptomatic relief. Patient received Phenergan prior to arrival and states that her nausea has significantly improved. Laboratory workup interpreted by me personally. No leukocytosis, hemoglobin stable with no anemia, coagulation studies unremarkable. CMP unremarkable nonactionable with liver enzymes within normal limits. Alk phos within normal limits. Bilirubin normal at 0.4. Lipase normal at 71. Negative test. Urinalysis with 2+ blood but no evidence of infection. Patient denies any urinary symptoms at this time. Right upper quadrant [id number] ultrasound was performed by me. No pericholecystic fluid, no gallbladder wall thickening, no stones were appreciated. She does have some sludge in the gallbladder. Common bile duct is nondilated. See procedure note for details. EKG interpreted by me personally as well. No ST elevation or depression. No ischemic changes. See interpretation above. CT imaging interpreted by me personally. Patient does have an enlarged gallbladder but no evidence of stones or biliary duct dilatation. No pericholecystic fluid. Patient does have some inflammatory changes within the stomach consistent with gastritis. No other acute findings within the abdomen or pelvis. See radiology report for details. Patient was able to tolerate oral intake in the emergency department. On reassessment, patient stated that her nausea has significantly improved and her pain has resolved. Given this, is felt that she is appropriate for discharge at this time with outpatient follow-up with surgery for her cholelithiasis. She was encouraged to continue to hydrate well and drink plenty of fluids. She has been prescribed Zofran to help with nausea and vomiting. Return precautions were given. All questions were answered. She demonstrated understanding and was in agreement this plan. She was then discharged from the emergency department in stable condition. Procedures Limited Ultrasound Interpretation:: Limited RUQ ultrasound Indication: Abdominal pain, nausea, vomiting Identified structures: -Gallbladder -Gallbladder wall -Common bile duct -Liver Findings: Sonographic Watkins sign: Absent Gallstones: Absent Sludge: Present Pericholecystic fluid: Absent Maximal GB wall thickness (mm): 1.8mm Common bile duct width (mm): 5.3mm Impression: Biliary sludge without evidence of acute cholecystitis or choledocholithiasis Images were saved to permanent archive The study was technically adequate CPT 17139-78 This study was performed by me, and I personally interpreted all images/videos. Based on my clinical judgement, these images were adequate/inadequate and did necessitate further imaging. Critical Care Critical Care Time Critical Care Time: No
[2025-05-12] MEDS: MORPHINE 4MG/ML SYRINGE 4 MG IV (15:43)
[2025-05-12 16:10] LABS: Microscopic, Urine URINE MICROSCOPIC (MICROSCOPIC)
--- NOTE | 2025-05-12 16:15 | ECG_ITS ---
APPROVED REPORT Exam: Resting ECG HR:50 bpm ECG Measurements Heart Rate 50 AXES FL 189 P 74 QRSd 92 QRS 74 QT 463 T -17 QTc 437 Conclusion SINUS BRADYCARDIA POSSIBLE RIGHT VENTRICULAR CONDUCTION DELAY [RSR (QR) IN V1/V2] NONSPECIFIC T-WAVE ABNORMALITY ABNORMAL ECG UNCONFIRMED REPORT Sinus bradycardia with ventricular rate of [address] elevation or depression. T wave inversion in lead III Electronically signed by : MAGDA ROSARIO, 05/13/2025 11:15:39
[2025-05-12 16:21] LABS: Hematocrit 43.1 % (37.0-47.0); Hemoglobin 14.5 g/dL (12.2-16.2); Immature Granulocytes % 0.2 %; Mean Corpuscular HGB Conc 33.6 g/dL (31.8-35.4); Mean Corpuscular Hemoglobin 29.6 pg (27.0-31.2); Mean Corpuscular Volume 88.0 fl (81-99); Nucleated Red Blood Cells % 0 %; Platelet Count 227 K/mm3 (142-424); Red Blood Count 4.90 M/mm3 (4.20-5.40); Red Cell Distribution Width-SD 43.0 fL; White Blood Count 5.8 K/mm3 (4.8-10.8)
[2025-05-12 16:29] LABS: Albumin Level 4.6 g/dl (3.5-5.0); Chloride 104 mmol/L (98-107); Potassium 4.0 mmoL/L (3.5-5.1); Sodium 137 mmol/L (136-145)
[2025-05-12 16:30] LABS: Bilirubin,Urine Negative (Negative); Color,Urine YELLOW (Yellow); Glucose,Urine (UA) Negative (Negative); Ketones,Urine Negative (Negative); Leukocyte Esterase,Urine Negative (Negative); PH,Urine 5.5 (5.0-8.5); Protein,Urine Negative (Negative); Specific Gravity, Urine 1.020 (1.005-1.030); Urobilinogen,Urine 0.2 EU/dl (0.2)
[2025-05-12 16:31] LABS: Alanine Aminotransferase 17 U/L (12-78); Aspartate Amino Transferase 23 U/L (14-36); Blood Urea Nitrogen 10 mg/dl (7-17); Creatinine Clearance Estimated 121 mL/min (50-200); Creatinine,Serum 0.60 mg/dl (0.52-1.04); Estimated Glomerular Filt Rate 121 ml/min (>60); GFR (African American) 146 ML/MIN (>60); INR 1.08 (0.9-1.1); Prothrombin Time 11.9 seconds (10.1-12.5)
[2025-05-12 16:32] LABS: Albumin/Globulin Ratio 1.4 (1.1-1.8); Alkaline Phosphatase 64 U/L (38-126); Anion Gap 12.0 mEq/L (5-15); Bilirubin,Total 0.4 mg/dl (0.2-1.3); Calcium 9.1 mg/dl (8.4-10.2); Carbon Dioxide 25 mmol/L (22.0-30.0); Globulin 3.3 g/dL (1.3-3.2); Glucose 104 mg/dl (74-100); Lipase 71 U/L (23-300); Total Protein,Serum 7.9 g/dl (6.3-8.2)
[2025-05-12 16:43] LABS: HCG Qualitative, Serum Negative (Negative)
[2025-05-12 16:48] LABS: RBC,Urine Occasional #/hpf (0-3)
[2025-05-12] MEDS: IOPAMIDOL-370 (76%);100ML BOTTLE 75 ML IV (16:54)
[2025-05-12] MEDS: SODIUM CHLORIDE 0.9% 10ML SYR (RAD ONLY) 10 ML IV (16:55)
[2025-05-12 18:20] LABS: Hepatitis C Ab Qual. W/ RFX NEGATIVE (Negative)
== END 2025-05-12 20:01 | disposition home or self-care (01) ==
PROVIDERS: Emergency Provider Student in an Organized Health Care Education/Training Program; PCP Family Medicine
DX: R10.13 Epigastric pain (principal); R11.2 Nausea with vomiting, unspecified; R19.7 Diarrhea, unspecified; K82.8 Other specified diseases of gallbladder; K29.70 Gastritis, unspecified, without bleeding; F17.210 Nicotine dependence, cigarettes, uncomplicated
CPT/HCPCS: 74177; 80053; 81001; 83690; 84703; 85025; 85610; 86803; 87389; 93005; 99285; J2270; Q9967